=== PATIENT | female | born 1980 | race African-American/Black ===

== ENCOUNTER 2022-12-21 14:52 | Emergency (ER) | payer OTHER, SELFPAY ==
--- NOTE | ~2022-12-21 | CT_ITS ---
EXAMINATION: CT lumbar spine wo con DATE: 12/21/2022 19:35 INDICATION: midline lumbar tenderness . TECHNIQUE: Computed tomography (CT) of the lumbar spine was performed without intravenous contrast. A utomated exposure control and iterative reconstruction technique were employed. The dose-length produ ct was 940.13 mGy-cm. COMPARISON: None. FINDINGS: 5 nonrib-bearing lumbar-type vertebral bodies. Pedicles intact. Normal vertebral body align ment. Vertebral body heights preserved. No lytic or blastic lesion. Mild disc space narrowing at L4-5 and L5-S1. Mild facet arthropathy. No severe central canal or neural foraminal narrowing. IMPRESSION: No acute fracture or traumatic malalignment in the lumbar spine. Reviewed, dictated and finalized at location K.
[2022-12-21 15:28] VITALS: BP 133/83; PULSE 96; RESP 18; TEMP 37.1; O2SAT 100
--- NOTE | 2022-12-21 15:34 | ECG_ITS ---
Measurements Intervals [place] Rate: 75 P: 62 CT: 163 QRS: 51 QRSD: 89 T: 63 QT: 356 QTc: 399 Interpretive Statements SINUS RHYTHM NORMAL ECG NO PREVIOUS ECG AVAILABLE FOR COMPARISON Electronically Signed On 12-22-2022 13:29:56 CDT by Milton Sanchez M.D.
--- NOTE | 2022-12-21 17:24 | ED.GENADULT ---
HPI - General Adult General Chief complaint: Back Pain/Injury Stated complaint: back pain/lightheaded Time Seen by Provider: 12/21/22 17:10 Source: patient Mode of arrival: ambulatory Limitations: no limitations History of Present Illness HPI narrative: This is a 42-year-old female who presents to the ED with chief complaint of back pain x3 days. Reports the pain is all across the low back and radiates somewhat into the upper buttocks bilaterally. Described as sharp pain. Denies any history of back problems. Denies fevers, chills, nausea, vomiting, long-term steroid use. Denies any trauma or injury. Denies numbness or weakness in the extremities. 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 Reports additional complaints of intermittent vertigo that has been treated recently with her PCP. She does not feel this is related to the back pain today, but did have an episode earlier. Denies chest pain, shortness of breath, leg swelling, palpitations, abdominal pain, urinary problems. Denies bowel or bladder dysfunction. She has additional complaints of sore throat and possible canker sore on her tongue. Related Data Allergies Allergy/AdvReac Type Severity Reaction Status Date / Time No Known Allergies Allergy Verified 12/21/22 17:37 Review of Systems Review of Systems: All systems as dictated in HPI Exam Narrative: GENERAL: Well-appearing, well-nourished, and in no acute distress. HEAD: Normocephalic, atraumatic. EYES: PERRLA and EOMI. ENT: Nares clear, no rhinorrhea or epistaxis. Mucous membranes moist. Oropharynx without tonsillar hypertrophy exudate or other lesions. NECK: Supple. No adenopathy or masses. CHEST: No respiratory distress. Clear to auscultation. No wheezes rales or rhonchi HEART: Regular rate and rhythm. No murmur heard. Normal peripheral pulses. ABDOMEN: No flank tenderness. Soft, nontender, nondistended, normal active bowel sounds. MSK: Tenderness to bilateral SI joints. Mild midline tenderness. No deformity or step-off. Normal range of motion. No edema. SKIN: Warm, dry, no rash. NEURO: Alert and oriented x3. No focal deficits. 5/5 strength and sensation in the upper and lower extremities. PSYCH: Normal mood and affect. Course Vital Signs Vital signs: Vital Signs Temperature 98.7 F 12/21/22 15:28 Pulse Rate 96 12/21/22 15:28 Respiratory Rate 18 12/21/22 15:28 Blood Pressure 133/83 12/21/22 15:28 Pulse Oximetry 100 12/21/22 15:28 Oxygen Delivery Room Air 12/21/22 15:28 Temperature 98.7 F 12/21/22 15:28 Pulse Rate 89 12/21/22 21:15 Respiratory Rate 14 12/21/22 21:15 Blood Pressure 150/82 H 12/21/22 21:15 Pulse Oximetry 98 12/21/22 21:15 Oxygen Delivery Room Air 12/21/22 15:28 Medical Decision Making MDM Narrative Medical decision making narrative: This is a 42-year-old female who presents to the ED with chief complaint of lower back pain. Additional complaints of vertigo but this has been intermittent for the past months. Does not seem to be related today. Vitals are normal. Exam shows SI joint tenderness bilaterally. There is no flank tenderness. CT lumbar is largely unremarkable. Mild degenerative disc disease noted. UA shows evidence of infection with 1+ leuks, 21-50 white cells and 4+ bacteria. Again she has no flank tenderness, afebrile so she may have a bit of pyelonephritis but is mild at this time. Viral swabs negative. Symptoms are controlled here in the ED. Presentation consistent with UTI. She was given prescription for Bactrim. Pt will be discharged in stable condition. Return precautions given and supportive measures discussed. Pt is understanding and agreeable with plan for discharge and follow-up with PCP. Vital Signs Vital Signs: Vital Signs Temperature 98.7 F 12/21/22 15:28 Pulse Rate 96 12/21/22 15:28 Respiratory Rate 18 12/21/22 15:28 Blood Pressure 133/83 10/
[2022-12-21] MEDS: KETOROLAC 30 MG/ML VIAL (*BKC) IM (17:38)
[2022-12-21] MEDS: ORPHENADRINE CITRATE 100 MG TABLET.ER PO (17:38)
[2022-12-21 18:04] LABS: Appearance Urine Turbid (Clear); Bacteria Urine 4+ /hpf; Bilirubin Urine Negative (Negative); Blood Urine Negative (Negative); Color Urine Yellow (Yellow); Glucose Urine UA Negative (Negative); Ketones Urine Negative (Negative); Leukocyte Esterase Ur 1+ LEU/UL (Negative); Nitrate Urine Negative (Negative); Non Pathogenic Casts 0-2; Protein Urine Negative (Negative); RBC Urine 0-2 /hpf (0-2); Specific Grav Ur 1.024 (1.001-1.035); Squamous Epithelial Cell Urine Many /hpf (Few); Urobilinogen Urine 0.2 mg/dL (<2.0); WBC Urine 21-50 /hpf; pH Urine 5.5 (5.0-9.0)
[2022-12-21 18:09] LABS: Add Urine Microscopic? YES
[2022-12-21 18:25] LABS: Strep Group A RT-PCR NOT DETECTED (Negative)
[2022-12-21 18:35] LABS: Influenza A QL RT-PCR Negative (Negative); Influenza B QL RT-PCR Negative (Negative); RSV RNA, RT-PCR Negative (Negative); SARS-CoV-2 RNA PCR Negative (Negative)
[2022-12-21 21:15] VITALS: BP 150/82; PULSE 89; RESP 14; O2SAT 98
== END 2022-12-21 21:16 | disposition home or self-care (01) ==
PROVIDERS: Emergency Provider Physician Assistant; PCP Internal Medicine
DX: N39.0 Urinary tract infection, site not specified (principal); Z20.822 Contact with and (suspected) exposure to COVID-19
CPT/HCPCS: 72131; 81001; 81025; 87086; 87637; 87651; 93005; 96372; 99284; A9270; J1885

== ENCOUNTER 2024-04-30 13:04 | Emergency (ER) | payer OTHER, SELFPAY ==
[2024-04-30 13:08] VITALS: BP 131/82; PULSE 82; RESP 16; TEMP 36.4; O2SAT 100
--- OUTSIDE RECORDS SUMMARY | 2024-04-30 13:25 | XMS_ITS | Clinical Summary ---
Author Organization [facility] Address [address] [place] [address] Phone Care Team Providers Care Sr. Social Media & Mobile Manager Name Role Phone Unavailable Primary Care Provider Unavailabl e Allergies No known active allergies Medications PNV #[id number]-FA #6-dha (PRENATE DHA) 28 mg iron-1 mg -300 mg CapsuleIndicati ons:Positive urine test Take 1 Tablet by mouth daily. 30 Capsule 12 08/07/2015 Active Cholecalciferol , Vitamin D3, 2,000 unit Capsule Take by mouth. Active traMADol (ULTRAM) 50 mg tabletIndicatio ns:Dysmenorrhea Take 1 Tablet (50 mg) by mouth every 6 hours as needed for Pain. 15 Tablet 08/29/2018 Active polyethylene glycol 3350 (MIRALAX) 17 gram/dose Powder Take 1 SCOOP (17 Grams) by mouth daily Dissolve in 8 ounces of fluid and drink entire liquid. 527 Gram 08/29/2018 Active Active Problems Problem Noted Date Diagnosed Date Pap smear of cervix with ASCUS, cannot exclude H GSIL 09/11/2015 luteal phase defect 08/09/2015 Retroversion, uterus 08/07/2015 Resolved Problems Problem Noted Date Diagnosed Date Resolved Date Missed 08/25/2015 08/25/2015 Rh negative status during 08/25/2015 08/25/2015 Encounters Date Type Department Care Team Description 04/28/2024 External Device Data [facility] Provider, Abstract 04/14/2024 External Device Data [facility] Provider, Abstract 03/18/2024 External Device Data [facility] Provider, Abstract 03/09/2024 External Device Data [facility] Provider, Abstract from Last 3 Months Immunizations Immunization Administration Dates Next Due Rho (D) IMMUNE GLOBULIN 1,500 UNIT(300 MCG) INJErika CTION 08/25/2015 Family History Medical History Relation Name Comments Hypertension Mother Diabetes Sister Relation Name Status Comments Mother Sister Social History Tobacco Use Types Packs/Day Years Used Date Smoking Tobacco: Never Smokeless Tobacco: Never Alcohol Use Standard Drinks/Week Comments Yes 0 (1 standard drink = 0.6 oz pur e alcohol) Once a year Comments No Sex and Gender Information Value Date Recorded Sex Assigned at Not on file Legal Sex Female 11:06 AM CDT Gender Identity Not on file Sexual Orientation Not on file Last Filed Vital Signs Vital Sign Reading Time Taken Comments Blood Pressure 119/83 08/29/2018 6:55 AM CDT Pulse 83 08/29/2018 5:00 AM CDT Temperature 36.7 C (98.1 F) 08/29/2018 6:55 AM CDT Respiratory Rate 16 08/29/2018 6:55 AM CDT Oxygen Saturation 100% 08/29/2018 6:55 AM CDT Inhaled Oxygen Concentration - - Weight 90.3 kg (199 lb) 08/29/2018 4:35 AM CDT Height 167.6 cm (5' 6 ) 08/29/2018 4:35 AM CDT Body Mass Index 32.12 08/29/2018 4:35 AM CDT Plan of Treatment Health Maintenance Due Date Last Done Comments Pre-Diabetes and Diabetes Screening 1980 HEPATITIS B VACCINES (1 of 3 - 19+ 3-dose series) 12/22/1999 CERVICAL CANCER SCREENING 08/06/2018 08/07/2015 INFLUENZA VACCINE (#1) 2023 04/17/2020, 2019 BREAST CANCER SCREENING 06/18/2024 06/19/2023 DTAP/TDAP/TD VACCINES (5 - Td or Tdap) 11/27/2030 11/27/2020, 05/15/2020, 04/17/2020, Additional history exists HPV VACCINES Aged Out No longer eligi ble based on patient's age to complete this topic Procedures Procedure Name Priority Date/Time Associated Diagnosis Comments MAMMO 3D BEVERLY SCREEN BILAT W OR WO CAD Routine 06/19/2023 9:18 AM CDT Breast cancer screening by mammogram CERV/VAG CYTO SCREEN PAP W/HPV Routine 08/07/2015 4:21 PM CDT Well woman exam with routine gynecological exam Positive urine test Screening for STD (sexually transmitted disease) , incidental from Last 3 Months or Most Recently Relevant to Health Maintenance Results * MAMMO 3D BEVERLY SCREEN BILAT W OR WO CAD (06/19/2023 9:18 AM CDT) Anatomical Region Laterality Modality Breast Bilateral Mammography 06/19/2023 9:19 AM CDT Narrative 06/19/2023 9:26 AM CDT EXAM: MAMMO 3D BEVERLY SCREEN BILAT W OR WO CAD DATE: 06/19/2023 HISTORY: Breast cancer screening by mammogram COMPARISON: None as this is a baseline exam. DENSITY: Heterogeneously dense which could obscure small masses. FINDINGS: Bilateral screening mammograms with tomosynthesis were performed. Computer assisted detection was utilized. Little significant change is noted. The parenchymal pattern is essentially unchanged. No new dominant mass, architectural distortion, nipple retraction, skin thickening, or suspicious calcifications are seen. ASSESSMENT: BIRADS Category 1: Negative mammogram. Digital technology was employed plus computer-aided detection software was utilized in interpretation of these images. Melvin Tineo MD MAMMO ORDERABLES Final Result * (ABNORMAL) CERV/VAG CYTOPATH, THIN PREP MANAGER DIABETES AND HPV (CP) (08/07/2015 4:21 PM CDT) CLINICAL INFORMATION [facility] Comment: Routine exam WWE LAST MENSTRUAL PERIOD [facility] Comment:[id number] PREV PAP: [facility] Comment:INFORMATION NOT PROV IDED PREV BX: [facility] Comment:INFORMATION NOT PROV IDED SOURCE [facility] Comment:Endocervix ADEQUACY: [facility] Comment: Satisfactory for evaluation. Endocervical/transformation zone component present. GENERAL CATEGORIZATION: (A) [facility] Comment:EPITHELIAL CELL ABNO RMALITY INTERPRETATION (A) [facility] Comment: Atypical Squamous Cells, cannot exclude High Grade Squamous Intraepithelial Lesion (ASC-H) COMMENT [facility] Comment: This Pap test has been evaluated with computer assisted technology. 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 (electronic signature) Test Performed at: [address] [address] OSCAR GILMORE MD HPV E6/E7 Not Detected Not Detected [facility] Comment: This test was performed using the APTIMA HPV Assay ([employer] This assay detects E6/E7 viral messenger RNA (mRNA) from 14 high-risk HPV types (16,18,31,33,35,39,45,51,52,56,58,59,66,68). Specimen from genital system (specimen) SWAB OF ENDOCERVIX / Unknown 08/07/2015 4:21 PM CDT us Mika Astorga MD PATHOLOGY/CYTOLOGY ORDERABLE S Final Result [facility] [address] [place] [address] from Last 3 Months or Most Recently Relevant to Health Maintenance Insurance [employer] OPEN ACCESS HMO [employer] CHOICE FUND OA PLUS Advance Directives For more information, please contact: [phone] * Full Code (Latest Code Status on File) Date Activated Date Inactivated Comments 08/25/2015 5:23 AM 08/25/2015 10:21 AM
--- OUTSIDE RECORDS SUMMARY | 2024-04-30 13:25 | XMS_ITS | Patient Health Record ---
Author Organization [facility] Address [address] [place] [address] Care Team Providers Care Road Passenger Firer Name Role Phone Hallie Byrne Primary Care Provider Mari Byrne Unavailable Unavailable Allergies No Known Allergies Reason For Referral No Information Medications Medication SIG (Take, Route, Frequency, Duration) Notes Start Date End Date Status FLUoxetine HCl 10 MG 1 capsule Orally On ce a day for 30 days Active hydrOXYzine Pamoate 25 MG 1 capsule ever y 6 hours as needed for anxiety Orally Every 6 hours for 30 days Active traZODone HCl 50 MG 1 tablet at bedtime Orally Once a day Active Social History Sex Assigned At : Social History Observation Description Sex Assigned At Female Problems Problem Type SNOMED Code ICD Code Onset Dates Problem Status W/U Status Risk Notes Problem Major depression (269192311) Major depression (F32.9) Active confirmed Problem Generalized anxiety disorder (25250960) MARIANA (generalized anxiety disorder) (F41.1) Active confirmed Vital Signs Heart Rate 84 /min 01/27/2024 Temperature 98.1 degrees Fahrenheit 01/27/2024 Respiratory Rate 16 /min 01/27/2024 Oximetry 99 % 01/27/2024 Blood pressure diastolic 80 mm Hg 01/27/2024 Height 66 in 01/27/2024 Blood pressure systolic 128 mm Hg 01/27/2024 Weight 237 lbs 01/27/2024 BMI 38.25 kg/m2 01/27/2024 Encounters Encounter Location Date Provider Diagnosis [address] [place] [address] 01/27/2024 Arif Habib Major depression F32.9 and MARIANA (generalized anxiety disorder) F41.1 Assessments Encounter Date Diagnosis (ICD Code) Assessment Notes Treatment Notes Treatment Clinical Notes Section Notes 01/27/2024 Major depression (ICD-10 - F32.9) risk & benefits discussed. Lower Prozac 10 mg daily, Vistaril 25 mg PRN for anxiety, Continue Trazodone 50 mg HS PRN . Side effects discussed. Supportive treatment provided. Refer to counseling. 01/27/2024 MARIANA (generalized anxiety disorder) (ICD-10 - F41.1) Plan Of Treatment No Information Insurance Providers Payer Name Payer Address Payer Phone Subscriber Number Group Number Insured Name Patient Relationship to Insured Coverage Start Date Coverage End Date [employer] [address] [place] [address] [id number] Ramon Kulkarni Self - patient is the insured 4 Medical (General) History Surgical History Surgery Date(Month/Year) Uterine Fibroid Removal 2000 2009 D&C 2014, 2015, 2020 2009 Fertility treatments from [phone]
--- OUTSIDE RECORDS SUMMARY | 2024-04-30 13:25 | XMS_ITS | Encounter Summary ---
Author Organization [facility] Address [address] [place] [address] Care Team Providers Care Info Analyst Name Role Phone Unavailable Primary Care Provider Unavailabl e Encounter Details Date Type Department Care Team (Late st Contact Info) Description 04/28/2024 External Device Data [facility] Provider, Abstract NO ADDRESS ON FILE Social History Tobacco Use Types Packs/Day Years [...] on file Sexual Orientation Not on file documented as of this encounter Plan of Treatment Not on file documented as of this encounter Visit Diagnoses Not on filedocumented in this encounter
--- OUTSIDE RECORDS SUMMARY | 2024-04-30 13:25 | XMS_ITS | Encounter Summary ---
Author Organization [facility] Address [address] [place] [address] Care Team Providers Care Lens Gauger Name Role Phone Unavailable Primary Care Provider Unavailabl e Encounter Details Date Type Department Care Team (Late st Contact Info) Description 05/06/2023 Lab Requisition [facility] [employer] [address] [employer] [address] [facility], External Provider [address] [facility] [place] [address] Social History Tobacco Use Types Packs/Day Years [...] on file documented as of this encounter Procedures Procedure Name Priority Date/Time Associated Diagnosis Comments D-DIMER Stat 05/06/2023 12:16 PM CDT documented in this encounter Results * D-DIMER (05/06/2023 12:16 PM CDT) D-DIMER QUANT 0.39 <0.50 ug/mL FEU 05/06/2023 3:52 PM CDT [facility] [employer] [facility] Blood 05/06/2023 12:1 6 PM CDT 05/06/2023 3:10 PM CDT Narrative [facility] - 05/06/2023 3:52 PM CDT D-Dimer assay cutoff value for exclusion of DVT and/or PE is <0.50 ug/mL FEU. us External Provider [facility] HEMATOLOGY ORDERABLES Fi nal Result [facility] CLOK# [id number] [address] [place] [address] documented in this encounter Visit Diagnoses Not on filedocumented in this encounter
--- OUTSIDE RECORDS SUMMARY | 2024-04-30 13:26 | XMS_ITS | Data Portability ---
Author Organization [facility], [employer] Address [address] [place] [address] Care Team Providers Care Cmm Inspector Name Role Phone LUPILLO JOLLY Crm System Administrator Assessment Encounter Date Assessment Date Assessment LastModified by Organization Details LastModified Time 01/07/2023 01/07/2023 Patient presente d for follow up. Studies ordered as below. Discussed plan with patient/caregiver , who expressed understanding. Follow up as noted below. Not available 01/07/2023 17:47:39 05/05/2023 05/05/2023 Patient presente d for follow up. Studies ordered as below. Discussed plan with patient/caregiver , who expressed understanding. Follow up as noted below. diana Not available 05/05/2023 15:30:36 07/14/2023 07/14/2023 Recommends healthy nutrition, including a diet rich in fruits and vegetables, minimizing simple carbohydrates, salt, and saturated fats. Encouraged regular cardiovascular exercise such as walking at least 30 minutes daily, 5 times per week. Not available 07/14/2023 10:53:24 03/16/2024 03/16/2024 Recommends healthy nutrition, including a diet rich in fruits and vegetables, minimizing simple carbohydrates, salt, and saturated fats. Encouraged regular cardiovascular exercise such as walking at least 30 minutes daily, 5 times per week. Not available 03/16/2024 16:09:27 Plan of Treatment Reminders Order Date Submit Date Provider Last Modified By Organization Details Last Modified Time Details Appointments ANNUAL PHYSICA L 2024 01:30P M Melvin Tineo MD Not available Not available Not available Lab CBC w/ auto diff 2023 024 [facility], [address], [address], [place], [address], 07/22/2023 08:46:31 iron panel, serum or plasma 2023 024 [facility], [address], [address], [place], [address], 07/14/2023 11:01:56 CBC w/ auto diff 2023 024 [facility], [address], [address], [place], [address], 05/12/2023 07:34:09 CMP, serum or plasma 2023 024 [facility], [address], [address], [place], [address], 05/12/2023 07:34:08 urinaly sis complet e, reflex culture [address] [facility], [address], [address], [place], [address], 05/12/2023 08:20:01 amylase + lipase, serum 2023 024 [facility], [address], [address], [place], [address], 05/12/2023 07:34:09 pregnan cy test, urine 2023 024 [facility], [facility], [address], [place], [address], 05/05/2023 16:59:59 D-dimer , quant, plasma 2023 024 [facility], [address], [address], [place], [address], 05/22/2023 13:19:25 urinaly sis complet e, reflex culture [address] [facility], [address], [address], [place], [address], 01/07/2023 17:52:56 vitamin B12 + folate, serum or blood 2022 023 [facility], [address], [place], [address], 01/14/2023 08:09:41 TSH + free T4, serum 2022 023 [facility], [address], [address], [place], [address], 01/14/2023 08:09:42 T3, free, serum or plasma 2022 023 [facility], [address], [address], [place], [address], 01/14/2023 08:09:42 CMP, serum or plasma 2022 023 [facility], [address], [address], [place], [address], 11/06/2022 08:27:18 magnesi um, serum or plasma [address] [facility] [address] [facility], [address], [address], [place], [address], 11/06/2022 08:27:19 lipid panel, serum [address] [facility], [address], [address], [place], [address], 11/06/2022 08:27:19 HIV 1+2 Ab + HIV1 p24 Ag, quantit ative immunoa ssay, serum 2022 023 [employer] [facility], [address], [address], [place], [address], 01/04/2023 08:52:31 CBC w/ auto diff 2022 023 [facility], [address], [address], [place], [address], 11/06/2022 08:27:19 iron + TIBC + ferriti n, serum 2022 023 [facility], [address], [address], [place], [address], 11/06/2022 08:27:19 Referral gynecol ogist referra l 2024 025 diana Menjivar MD, [address] [facility], [facility] [address], [place], [address], 04/13/2024 08:12:33 gynecol ogist referra l 2023 024 diana Menjivar MD, [address] [facility], [facility] [address], [place], [address], 08/11/2023 21:20:50 gastroe nterolo gist referra l 2023 024 MARCELA Whitaker MD, [address] [facility], [address], [place], [address], 11/09/2023 21:21:[address] referra l 2022 023 [facility] [address] [facility], [address], [place], [address], 01/02/2024 09:08:01 gynecol ogist referra l 2022 023 shannon Escobarti MD, [address], [address], [place], [address], 02/04/2023 08:29:52 Procedures None recorde d. Surgeries None recorde d. Imaging electro cardiog barb 2024 025 [facility], [facility], [address], [place], [address], 03/16/2024 17:00:35 CT, abdomen + pelvis, w/wo contras t 2023 024 [facility] [facility]), [address], [address], [place], [address], 05/12/2023 08:20:05 Medication Orders omepraz ole 40 mg capsule ,delaye d release 2023 024 [id number], [address], [place], [place], [id number], 05/05/2023 16:10:44 meclizi ne 25 mg tablet 2022 023 [facility][id number], [address], [place], [place], [id number], 03/16/2024 16:15:00 Patient TargetsNo targets recorded. Patient Instructions Encounter Date Encounter Id Patient Instructions Last Modified By Organization Details Last Modified Time 10/30/2022 [id number] spirometry testing* MARCELA Not available 01/07/2023 18:48:43 07/14/2023 [id number] advised to lose weight Not available 07/14/2023 11:00:48 03/16/2024 [id number] spirometry testing* MARCELA Not available 03/16/2024 16:59:49 advised to lose weight Not available 03/16/2024 16:19:33 Reason for Referral Digital Marketing Assistant Referral fo r Vertigo Referring Physician: Melvin Tineo, Internal Medicine, Encounter Date: 01/07/2023 Crm System Administrator Referral for Ir on deficiency anemia Referring Physician: Melvin Tineo Internal Medicine, Encounter Date: 01/07/2023 Fish Roe Technician Referral for Left upper quadrant pain Referring Physician: Melvin Tineo Internal Medicine, Encounter Date: 05/05/2023 Crm System Administrator Referral for Gy necologic examination Referring Physician: Melvin Tineo Internal Medicine, Encounter Date: 07/14/2023 Crm System Administrator Referral for Gy necologic examination Referring Physician: Melvin Tineo Internal Medicine, Encounter Date: 03/16/2024 Results Created Date Observation Date Name Description Value Unit Range Abnormal Flag Note LastModifiedBy Organization Detail LastModifiedTime 11/01/1910/31/2022 isaac metry testi ng* Spirometry Not Available [facility], [facility] [address] [facility] [address], [place], [address], 10/30/2022 12:13:19 01/04/2001/04/2023 IRON, TIBC AND CHALO TIN PANEL iron, total 22 mcg/d L 40-190 low Not Available [facility] [address], [address], 01/04/2023 08:52:28 01/04/20 23 01/04/2023 IRON, TIBC AND CHALO TIN PANEL iron binding capacity 413 mcg/d L_(ca lc) 250-45 0 normal Not Available [facility] [address] [place], [address], 01/04/2023 08:52:28 01/04/20 23 01/04/2023 IRON, TIBC AND CHALO TIN PANEL % saturation 5 %_(ca lc) 16-45 low Not Available [facility] [address], [address], 01/04/2023 08:52:28 01/04/20 23 01/04/2023 IRON, TIBC AND CHALO TIN PANEL ferritin 7 NG/mL 16-232 low Not Available [facility] [place] [address] [place], [address], 01/04/2023 08:52:28 01/04/20 23 01/04/2023 LIPID PANEL , STAND FLORENCIA cholesterol, total 131 mg/dL <200 normal Not Available [facility] [address] [place] [address] [place], [address], 01/04/2023 08:52:29 01/04/20 23 01/04/2023 LIPID PANEL , STAND FLORENCIA HDL cholesterol 54 mg/dL > or = 50 normal Not Available [facility] [place] [address] [place], [address], 01/04/2023 08:52:29 01/04/20 23 01/04/2023 LIPID PANEL , STAND FLORENCIA triglyceride s 59 mg/dL <150 normal Not Available [facility] [address] [address] [place], [address], 01/04/2023 08:52:29 01/04/20 23 01/04/2023 LIPID PANEL , STAND FLORENCIA LDL-choleste rol 63 mg/dL _(heaven c) normal Refer ence range : <100 Tenzin able range <100 mg/dL for prima ry preve ntion ; <70 mg/dL for patie nts with CHD or diabe tic patie nts with > or = 2 CHD risk facto rs. LDL-C is now calcu lated using the Harleen n-Hop kins angelu mica n, which is a valid ated novel metho d provi hema bañuelos r accur acy than the Fried imelda equat ion in the estim ation of LDL-C . Harleen petersen SS et al. JUAREZ. 2013; 310(1 9): 2061- 2068 (http ://ed ucati on.Qu Sherrill chi tics. com/f aq/FA Q164) Not Available [facility] [place] [address] [place], [address], 01/04/2023 08:52:29 01/04/20 23 01/04/2023 LIPID PANEL , STAND FLORENCIA chol/HDLC ratio 2.4 (calc ) <5.0 normal Not Available [facility] [address] [place], [address], 01/04/2023 08:52:29 01/04/20 23 01/04/2023 LIPID PANEL , STAND FLORENCIA non HDL cholesterol 77 mg/dL _(heaven c) <130 normal For patie nts with diabe nany plus 1 major ASCVD risk facto r, treat ing to a non-H DL-C goal of <100 mg/dL (LDL- C of <70 mg/dL ) is consi dered a thera peuti c optio n. Not Available [facility] [address], [place], [address], 01/04/2023 08:52:29 01/04/20 23 01/04/2023 HIV 1/2 ANTIG EN/AN TIBOD Y,FOU RTH GENER ATION W/RFL HIV Ag/Ab, 4TH gen NON-RE ACTIVE non-re active normal HIV-1 antig en and HIV-1 /HIV- 2 antib odies were not detec pooja. There is no labor atory evide nce of HIV infec tion. PLEAS E NOTE: This infor matio n has been discl osed to you from recor ds whose confi denti ality may be prote cted by state law. If your state requi res such prote ction , then the state law prohi bits you from esau rivera furth er discl osure of the infor matio n witho ut the speci fic writt en conse nt of the perso n to whom it perta ins, or as other fox permi tted by law. A gener al autho rizat ion for the relea se of medic al or other infor matio n is NOT suffi cient for this purpo se. For addit ional infor matio n pleas e refer to http: //[facility] catrachel n.que stdia gnost ics.c om/fa q/FAQ 106 (This link is being provi ded for infor matio nal/ educa veena l purpo ses only. ) The perfo rmanc e of this assay has not been clini trudy valid ated in patie nts less than 2 years old. Not Available [address], [address], 01/04/2023 08:52:30 01/04/20 23 01/04/2023 MAGNE SIUM magnesium 2.0 mg/dL 1.5-2. 5 normal Not Available [address], [address], 01/04/2023 08:52:31 01/04/20 23 01/04/2023 COMPR EHENS MARISA METAB OLIC PANEL glucose 81 mg/dL 65-99 normal Fasti ng refer ence inter binta Not Available [address], [address], 01/04/2023 08:52:32 01/04/20 23 01/04/2023 COMPR EHENS MARISA METAB OLIC PANEL urea nitrogen (BUN) 13 mg/dL 7-25 normal Not Available [address], [address], 01/04/2023 08:52:32 01/04/20 23 01/04/2023 COMPR EHENS MARISA METAB OLIC PANEL creatinine 0.74 mg/dL 0.50-0 .99 normal Not Available [address], [address], 01/04/2023 08:52:32 01/04/20 23 01/04/2023 COMPR EHENS MARISA METAB OLIC PANEL eGFR 104 mL/mi n/1.7 3m2 > or = 60 normal Not Available [address], [address], 01/04/2023 08:52:32 01/04/20 23 01/04/2023 COMPR EHENS MARISA METAB OLIC PANEL BUN/creatini ne ratio SEE NOTE: (calc ) 6-22 Not Repor pooja: BUN and Creat inine are withi n refer ence range . Not Available [address], [address], 01/04/2023 08:52:32 01/04/20 23 01/04/2023 COMPR EHENS MARISA METAB OLIC PANEL sodium 132 mmol/ L 135-14 6 low Not Available [address], [address], 01/04/2023 08:52:32 01/04/20 23 01/04/2023 COMPR EHENS MARISA METAB OLIC PANEL potassium 4.4 mmol/ L 3.5-5. 3 normal Not Available [address], [address], 01/04/2023 08:52:32 01/04/20 23 01/04/2023 COMPR EHENS MARISA METAB OLIC PANEL chloride 101 mmol/ L 98-110 normal Not Available [address], [address], 01/04/2023 08:52:32 01/04/20 23 01/04/2023 COMPR EHENS MARISA METAB OLIC PANEL carbon dioxide 25 mmol/ L 20-32 normal Not Available [address], [address], 01/04/2023 08:52:32 01/04/20 23 01/04/2023 COMPR EHENS MARISA METAB OLIC PANEL calcium 8.9 mg/dL 8.6-10 .2 normal Not Available [address], [address], 01/04/2023 08:52:32 01/04/20 23 01/04/2023 COMPR EHENS MARISA METAB OLIC PANEL protein, total 7.7 g/dL 6.1-8. 1 normal Not Available [facility] [address], [address], 01/04/2023 08:52:32 01/04/20 23 01/04/2023 COMPR EHENS MARISA METAB OLIC PANEL albumin 3.9 g/dL 3.6-5. 1 normal Not Available [address], [address], 01/04/2023 08:52:32 01/04/20 23 01/04/2023 COMPR EHENS MARISA METAB OLIC PANEL globulin 3.8 g/dL_ (calc ) 1.9-3. 7 high Not Available [address], [address], 01/04/2023 08:52:32 01/04/20 23 01/04/2023 COMPR EHENS MARISA METAB OLIC PANEL albumin/glob ulin ratio 1.0 (calc ) 1.0-2. 5 normal Not Available [address], [address], 01/04/2023 08:52:32 01/04/20 23 01/04/2023 COMPR EHENS MARISA METAB OLIC PANEL bilirubin, total 0.2 mg/dL 0.2-1. 2 normal Not Available [address], [address], 01/04/2023 08:52:32 01/04/20 23 01/04/2023 COMPR EHENS MARISA METAB OLIC PANEL alkaline phosphatase 69 U/L 31-125 normal Not Available [facility] [place] [address] [place], [address], 01/04/2023 08:52:32 01/04/20 23 01/04/2023 COMPR EHENS MARISA METAB OLIC PANEL AST 32 U/L 10-30 high Not Available [address], [address], 01/04/2023 08:52:32 01/04/20 23 01/04/2023 COMPR EHENS MARISA METAB OLIC PANEL ALT 34 U/L 6-29 high Not Available [address], [address], 01/04/2023 08:52:32 01/04/20 23 01/04/2023 CBC (INCL UDES DIFF/ PLT) white blood cell count 4.1 thous and/u L 3.8-10 .8 normal Not Available [address], [address], 01/04/2023 08:52:32 01/04/20 23 01/04/2023 CBC (INCL UDES DIFF/ PLT) red blood cell count 3.92 karla on/uL 3.80-5 .10 normal Not Available [address], [address], 01/04/2023 08:52:32 01/04/20 23 01/04/2023 CBC (INCL UDES DIFF/ PLT) hemoglobin 9.6 g/dL 11.7-1 5.5 low Not Available [address], [address], 01/04/2023 08:52:32 01/04/20 23 01/04/2023 CBC (INCL UDES DIFF/ PLT) hematocrit 30.8 % 35.0-4 5.0 low Not Available [address], [address], 01/04/2023 08:52:32 01/04/20 23 01/04/2023 CBC (INCL UDES DIFF/ PLT) MCV 78.6 fL 80.0-1 00.0 low Not Available [facility] [address], [address], 01/04/2023 08:52:32 01/04/20 23 01/04/2023 CBC (INCL UDES DIFF/ PLT) MCH 24.5 pg 27.0-3 3.0 low Not Available [address], [address], 01/04/2023 08:52:32 01/04/2001/04/2023 CBC (INCL UDES DIFF/ PLT) MCHC 31.2 g/dL 32.0-3 6.0 low Not Available [facility] [address], [address], 01/04/2023 08:52:32 01/04/20 23 01/04/2023 CBC (INCL UDES DIFF/ PLT) RDW 15.7 % 11.0-1 5.0 high Not Available [facility] [address], [address], 01/04/2023 08:52:32 01/04/20 23 01/04/2023 CBC (INCL UDES DIFF/ PLT) platelet count 319 thous and/u L 140-40 0 normal Not Available [address], [address], 01/04/2023 08:52:32 01/04/20 23 01/04/2023 CBC (INCL UDES DIFF/ PLT) MPV 11.5 fL 7.5-12 .5 normal Not Available [address], [address], 01/04/2023 08:52:32 01/04/20 23 01/04/2023 CBC (INCL UDES DIFF/ PLT) absolute neutrophils 1230 cells /uL 1500-7 800 low Not Available [facility] [address], [address], 01/04/2023 08:52:32 01/04/20 23 01/04/2023 CBC (INCL UDES DIFF/ PLT) absolute lymphocytes 2460 cells /uL 850-39 00 normal Not Available [facility] [address], [address], 01/04/2023 08:52:32 01/04/20 23 01/04/2023 CBC (INCL UDES DIFF/ PLT) absolute monocytes 287 cells /uL 200-95 0 normal Not Available [address], [address], 01/04/2023 08:52:32 01/04/20 23 01/04/2023 CBC (INCL UDES DIFF/ PLT) absolute eosinophils 123 cells /uL 15-500 normal Not Available [facility] [address], [address], 01/04/2023 08:52:32 01/04/20 23 01/04/2023 CBC (INCL UDES DIFF/ PLT) absolute basophils 0 cells /uL 0-200 normal Not Available [address], [address], 01/04/2023 08:52:32 01/04/20 23 01/04/2023 CBC (INCL UDES DIFF/ PLT) neutrophils 30 % normal Not Available [address], [address], 01/04/2023 08:52:32 01/04/20 23 01/04/2023 CBC (INCL UDES DIFF/ PLT) lymphocytes 60 % normal Not Available [address], [address], 01/04/2023 08:52:32 01/04/20 23 01/04/2023 CBC (INCL UDES DIFF/ PLT) monocytes 7 % normal Not Available [facility] [address], [address], 01/04/2023 08:52:32 01/04/20 23 01/04/2023 CBC (INCL UDES DIFF/ PLT) eosinophils 3 % normal Not Available [facility] [address], [address], 01/04/2023 08:52:32 01/04/20 23 01/04/2023 CBC (INCL UDES DIFF/ PLT) basophils 0 % normal Not Available [address], [address], 01/04/2023 08:52:32 01/04/20 23 01/04/2023 CBC (INCL UDES DIFF/ PLT) comment(s) The smear has been manua lldesean revie wed and the manua l diffe renti al has been repor pooja. Micro cytos is 1 + Revie w of the perip heral smear revea ls adequ ate numbe rs of plate lets. Not Available [address], [address], 01/04/2023 08:52:32 05/06/19 24 05/09/2023 IRON, TIBC AND CHALO TIN PANEL iron, total 126 mcg/d L 40-190 normal Not Available [address], [address], 05/09/2023 05:33:13 05/06/19 24 05/09/2023 IRON, TIBC AND CHALO TIN PANEL iron binding capacity 334 mcg/d L_(ca lc) 250-45 0 normal Not Available [address], [address], 05/09/2023 05:33:13 05/06/19 24 05/09/2023 IRON, TIBC AND CHALO TIN PANEL % saturation 38 %_(ca lc) 16-45 normal Not Available [address], [address], 05/09/2023 05:33:13 05/06/19 24 05/09/2023 IRON, TIBC AND CHALO TIN PANEL ferritin 14 NG/mL 16-232 low Not Available [address], [address], 05/09/2023 05:33:13 05/06/19 24 05/09/2023 HEPAT ITIS PANEL , ACUTE W/REF [place] TO CONFI RMATI ON hepatitis A IgM NON-RE ACTIVE non-re active normal For addit ional jorge hernandez e refer to http: //[facility]achel petersen.que stdia gnost ics.c om/fa q/FAQ 202 (This link is being provi ded for infor matio nal/ educa veena l purpo ses only. ) Not Available [address] [place] [address] [place], [address], 05/09/2023 05:33:14 05/06/19 24 05/09/2023 HEPAT ITIS PANEL , ACUTE W/REF [place] TO CONFI RMATI ON hepatitis B surface antigen NON-RE ACTIVE non-re active normal For addit ional jorge hernandez e refer to http: //[facility] zahida petersen.que stdia gnost ics.c om/fa q/FAQ 202 (This link is being provi ded for infor matrachel nal/ educa veena l purpo ses only. ) Not Available [facility] [address] [place], [address], 05/09/2023 05:33:14 05/06/19 24 05/09/2023 HEPAT ITIS PANEL , ACUTE W/REF [place] TO CONFI RMATI ON hepatitis B core antibody (IgM) NON-RE ACTIVE non-re active normal For addit ional jorge hernandez e refer to http: //[facility] zahida petersen.que stdia gnost ics.c om/fa q/FAQ 202 (This link is being provi ded for infor matio nal/ educa veena l purpo ses only. ) Not Available [facility] [address] [place], [address], 05/09/2023 05:33:14 05/06/19 24 05/09/2023 HEPAT ITIS PANEL , ACUTE W/REF [place] TO CONFI RMATI ON hepatitis C antibody NON-RE ACTIVE non-re active normal HCV antib trang was non-r eacti ve. There is no labor atory evide nce of HCV infec tion. In most cases , no furth er actio n is requi red. Howev er, if recen t HCV expos ure is suspe cted, a test for HCV RNA (test code 88440 ) is justin faye. For addit ional infor lisa patel e refer to http: //[facility] zahida levineque stdia gnost ics.c om/fa q/FAQ 22v1 (This link is being provi ded for infor lisa wheeler/ educa veena l purpo ses only. ) Not Available [address] [place], [address], 05/09/2023 05:33:14 05/06/1905/09/2023 TSH+F REE T4 TSH 1.77 mIU/L normal Refer ence Range > or = 20 Years 0.40- 4.50 Pregn shnaeka Range s First trime ster 0.26- 2.66 Secon d trime ster 0.55- 2.73 Third trime ster 0.43- 2.91 Not Available [address] [place], [address], 05/09/2023 05:33:15 05/06/19 24 05/09/2023 TSH+F REE T4 T4, free 0.9 NG/dL 0.8-1. 8 normal Not Available [facility] [place] [address] [place], [address], 05/09/2023 05:33:15 05/06/19 24 05/09/2023 CERUL OPLAS MIN ceruloplasmi n 31 mg/dL 18-53 normal Not Available [facility] [address], [address], 05/09/2023 05:33:16 05/06/19 24 05/09/2023 MITOC HONDR IAL ANTIB TRANG W/REF L TITER mitochondria l Ab screen NEGATI VE negati ve Not Available [facility] [address] [place], [address], 05/09/2023 05:33:18 05/06/19 24 05/09/2023 ANUJA H MUSCL E AB W/REF L TITER smooth muscle Ab screen NEGATI VE negati ve Not Available [address], [address], 05/09/2023 05:33:18 05/06/19 24 05/09/2023 VITAM IN B12/F OLATE , SERUM PANEL vitamin B12 1756 pg/mL 200-11 00 high Not Available [address], [address], 05/09/2023 05:33:19 05/06/19 24 05/09/2023 VITAM IN B12/F OLATE , SERUM PANEL folate, serum >24.0 NG/mL normal Refer ence Range Low: <3.4 Borde rline : 3.4-5 .4 Jammie l: >5.4 Not Available [address], [address], 05/09/2023 05:33:19 05/06/19 24 05/09/2023 T3, FREE T3, free 3.0 pg/mL 2.3-4. 2 normal Not Available [address], [address], 05/09/2023 05:33:19 05/06/19 24 05/09/2023 HCG, QL, URINE HCG, ql, urine NEGATI VE negati ve normal Not Available [address], [address], 05/09/2023 05:33:20 05/06/19 24 05/22/2023 COMPR EHENS MARISA METAB OLIC PANEL glucose 96 mg/dL 65-99 normal Fasti ng refer ence inter binta Not Available [address], [address], 05/22/2023 13:19:22 05/06/19 24 05/22/2023 COMPR EHENS MARISA METAB OLIC PANEL urea nitrogen (BUN) 10 mg/dL 7-25 normal Not Available [address], [address], 05/22/2023 13:19:22 05/06/19 24 05/22/2023 COMPR EHENS MARISA METAB OLIC PANEL creatinine 0.81 mg/dL 0.50-0 .99 normal Not Available [address], [address], 05/22/2023 13:19:22 05/06/19 24 05/22/2023 COMPR EHENS MARISA METAB OLIC PANEL eGFR 93 mL/mi n/1.7 3m2 > or = 60 normal Not Available [address], [address], 05/22/2023 13:19:22 05/06/19 24 05/22/2023 COMPR EHENS MARISA METAB OLIC PANEL BUN/creatini ne ratio SEE NOTE: (calc ) 6-22 Not Repor pooja: BUN and Creat inine are withi n refer ence range . Not Available [address], [address], 05/22/2023 13:19:22 05/06/19 24 05/22/2023 COMPR EHENS MARISA METAB OLIC PANEL sodium 137 mmol/ L 135-14 6 normal Not Available [address], [address], 05/22/2023 13:19:22 05/06/19 24 05/22/2023 COMPR EHENS MARISA METAB OLIC PANEL potassium 3.8 mmol/ L 3.5-5. 3 normal Not Available [address], [id number], 05/22/2023 13:19:22 05/06/19 24 05/22/2023 COMPR EHENS MARISA METAB OLIC PANEL chloride 107 mmol/ L 98-110 normal Not Available [address], [id number], 05/22/2023 13:19:22 05/06/19 24 05/22/2023 COMPR EHENS MARISA METAB OLIC PANEL carbon dioxide 23 mmol/ L 20-32 normal Not Available [address], [id number], 05/22/2023 13:19:22 05/06/19 24 05/22/2023 COMPR EHENS MARISA METAB OLIC PANEL calcium 9.4 mg/dL 8.6-10 .2 normal Not Available [address], [address], 05/22/2023 13:19:22 05/06/19 24 05/22/2023 COMPR EHENS MARISA METAB OLIC PANEL protein, total 7.4 g/dL 6.1-8. 1 normal Not Available [address], [address], 05/22/2023 13:19:22 05/06/19 24 05/22/2023 COMPR EHENS MARISA METAB OLIC PANEL albumin 4.1 g/dL 3.6-5. 1 normal Not Available [address], [address], 05/22/2023 13:19:22 05/06/19 24 05/22/2023 COMPR EHENS MARISA METAB OLIC PANEL globulin 3.3 g/dL_ (calc ) 1.9-3. 7 normal Not Available [address], [address], 05/22/2023 13:19:22 05/06/19 24 05/22/2023 COMPR EHENS MARISA METAB OLIC PANEL albumin/glob ulin ratio 1.2 (calc ) 1.0-2. 5 normal Not Available [address], [address], 05/22/2023 13:19:22 05/06/19 24 05/22/2023 COMPR EHENS MARISA METAB OLIC PANEL bilirubin, total 0.3 mg/dL 0.2-1. 2 normal Not Available [address], [address], 05/22/2023 13:19:22 05/06/19 24 05/22/2023 COMPR EHENS MARISA METAB OLIC PANEL alkaline phosphatase 54 U/L 31-125 normal Not Available [address], [address], 05/22/2023 13:19:22 05/06/19 24 05/22/2023 COMPR EHENS MARISA METAB OLIC PANEL AST 14 U/L 10-30 normal Not Available [address], [address], 05/22/2023 13:19:22 05/06/19 24 05/22/2023 COMPR EHENS MARISA METAB OLIC PANEL ALT 9 U/L 6-29 normal Not Available [address], [address], 05/22/2023 13:19:22 05/06/19 24 05/22/2023 URINA LYSIS , COMPL ETE W/REF NJ TO CULTU RE color YELLOW yellow normal Not Available [address], [address], 05/22/2023 13:19:22 05/06/19 24 05/22/2023 URINA LYSIS , COMPL ETE W/REF NJ TO CULTU RE appearance CLEAR clear normal Not Available [address], [address], 05/22/2023 13:19:22 05/06/19 24 05/22/2023 URINA LYSIS , COMPL ETE W/REF NJ TO CULTU RE specific gravity 1.001 1.001- 1.035 normal Not Available [address] [address] [place], [address], 05/22/2023 13:19:22 05/06/19 24 05/22/2023 URINA LYSIS , COMPL ETE W/REF NJ TO CULTU RE pH 6.0 5.0-8. 0 normal Not Available [address], [address], 05/22/2023 13:19:22 05/06/19 24 05/22/2023 URINA LYSIS , COMPL ETE W/REF NJ TO CULTU RE glucose NEGATI VE negati ve normal Not Available [address], [address], 05/22/2023 13:19:22 05/06/19 24 05/22/2023 URINA LYSIS , COMPL ETE W/REF NJ TO CULTU RE bilirubin NEGATI VE negati ve normal Not Available [address], [place], [address], 05/22/2023 13:19:22 05/06/19 24 05/22/2023 URINA LYSIS , COMPL ETE W/REF NJ TO CULTU RE ketones NEGATI VE negati ve normal Not Available [address], [address], 05/22/2023 13:19:22 05/06/19 24 05/22/2023 URINA LYSIS , COMPL ETE W/REF NJ TO CULTU RE occult blood NEGATI VE negati ve normal Not Available [address], [address], 05/22/2023 13:19:22 05/06/19 24 05/22/2023 URINA LYSIS , COMPL ETE W/REF NJ TO CULTU RE protein NEGATI VE negati ve normal Not Available [address] [place], [address], 05/22/2023 13:19:22 05/06/19 24 05/22/2023 URINA LYSIS , COMPL ETE W/REF NJ TO CULTU RE nitrite NEGATI VE negati ve normal Not Available [address], [address], 05/22/2023 13:19:22 05/06/19 24 05/22/2023 URINA LYSIS , COMPL ETE W/REF NJ TO CULTU RE leukocyte esterase NEGATI VE negati ve normal Not Available [address], [address], 05/22/2023 13:19:22 05/06/19 24 05/22/2023 URINA LYSIS , COMPL ETE W/REF NJ TO CULTU RE WBC NONE SEEN /hpf < or = 5 normal Not Available [address], [address], 05/22/2023 13:19:22 05/06/19 24 05/22/2023 URINA LYSIS , COMPL ETE W/REF NJ TO CULTU RE RBC NONE SEEN /hpf < or = 2 normal Not Available [address], [address], 05/22/2023 13:19:22 05/06/19 24 05/22/2023 URINA LYSIS , COMPL ETE W/REF NJ TO CULTU RE squamous epithelial cells NONE SEEN /hpf < or = 5 normal Not Available [address], [address], 05/22/2023 13:19:22 05/06/19 24 05/22/2023 URINA LYSIS , COMPL ETE W/REF NJ TO CULTU RE bacteria NONE SEEN /hpf none seen normal Not Available [address], [address], 05/22/2023 13:19:22 05/06/19 24 05/22/2023 URINA LYSIS , COMPL ETE W/REF NJ TO CULTU RE hyaline cast NONE SEEN /lpf none seen normal Not Available [address], [address], 05/22/2023 13:19:22 05/06/19 24 05/22/2023 URINA LYSIS , COMPL ETE W/REF NJ TO CULTU RE note This urine was caesar zed for the prese nce of WBC, RBC, bacte charli, casts , and other forme d eleme nts. Only those eleme nts seen were repor pooja. Not Available [address], [address], 05/22/2023 13:19:22 05/06/19 24 05/22/2023 REFLE XIVE URINE CULTU RE reflexive urine culture NO CULTU RE INDIC ATED Not Available [address], [address], 05/22/2023 13:19:23 05/06/19 24 05/22/2023 CBC (INCL UDES DIFF/ PLT) white blood cell count 4.6 thous and/u L 3.8-10 .8 normal Not Available [address], [address], 05/22/2023 13:19:24 05/06/19 24 05/22/2023 CBC (INCL UDES DIFF/ PLT) red blood cell count 4.15 karla on/uL 3.80-5 .10 normal Not Available [address], [address], 05/22/2023 13:19:24 05/06/19 24 05/22/2023 CBC (INCL UDES DIFF/ PLT) hemoglobin 12.0 g/dL 11.7-1 5.5 normal Not Available [address], [address], 05/22/2023 13:19:24 05/06/19 24 05/22/2023 CBC (INCL UDES DIFF/ PLT) hematocrit 37.2 % 35.0-4 5.0 normal Not Available [address], [address], 05/22/2023 13:19:24 05/06/19 24 05/22/2023 CBC (INCL UDES DIFF/ PLT) MCV 89.6 fL 80.0-1 00.0 normal Not Available [address], [address], 05/22/2023 13:19:24 05/06/19 24 05/22/2023 CBC (INCL UDES DIFF/ PLT) MCH 28.9 pg 27.0-3 3.0 normal Not Available [address], [address], 05/22/2023 13:19:24 05/06/19 24 05/22/2023 CBC (INCL UDES DIFF/ PLT) MCHC 32.3 g/dL 32.0-3 6.0 normal Not Available [address], [address], 05/22/2023 13:19:24 05/06/19 24 05/22/2023 CBC (INCL UDES DIFF/ PLT) RDW 14.0 % 11.0-1 5.0 normal Not Available [address], [address], 05/22/2023 13:19:24 05/06/19 24 05/22/2023 CBC (INCL UDES DIFF/ PLT) platelet count 249 thous and/u L 140-40 0 normal Not Available [address], [address], 05/22/2023 13:19:24 05/06/19 24 05/22/2023 CBC (INCL UDES DIFF/ PLT) MPV 11.4 fL 7.5-12 .5 normal Not Available [address], [address], 05/22/2023 13:19:24 05/06/19 24 05/22/2023 CBC (INCL UDES DIFF/ PLT) absolute neutrophils 1762 cells /uL 1500-7 800 normal Not Available [address], [address], 05/22/2023 13:19:24 05/06/19 24 05/22/2023 CBC (INCL UDES DIFF/ PLT) absolute lymphocytes 2259 cells /uL 850-39 00 normal Not Available [address], [address], 05/22/2023 13:19:24 05/06/19 24 05/22/2023 CBC (INCL UDES DIFF/ PLT) absolute monocytes 460 cells /uL 200-95 0 normal Not Available [address], [address], 05/22/2023 13:19:24 05/06/19 24 05/22/2023 CBC (INCL UDES DIFF/ PLT) absolute eosinophils 110 cells /uL 15-500 normal Not Available [address], [address], 05/22/2023 13:19:24 05/06/19 24 05/22/2023 CBC (INCL UDES DIFF/ PLT) absolute basophils 9 cells /uL 0-200 normal Not Available [address], [address], 05/22/2023 13:19:24 05/06/19 24 05/22/2023 CBC (INCL UDES DIFF/ PLT) neutrophils 38.3 % normal Not Available [address], [address], 05/22/2023 13:19:24 05/06/19 24 05/22/2023 CBC (INCL UDES DIFF/ PLT) lymphocytes 49.1 % normal Not Available [facility] [address] [address], [place], [address], 05/22/2023 13:19:24 05/06/19 24 05/22/2023 CBC (INCL UDES DIFF/ PLT) monocytes 10.0 % normal Not Available [address], [address], 05/22/2023 13:19:24 05/06/19 24 05/22/2023 CBC (INCL UDES DIFF/ PLT) eosinophils 2.4 % normal Not Available [address], [address], 05/22/2023 13:19:24 05/06/19 24 05/22/2023 CBC (INCL UDES DIFF/ PLT) basophils 0.2 % normal Not Available [address], [address], 05/22/2023 13:19:24 05/06/19 24 05/22/2023 D-DIM ER, QUANT ITATI VE D-dimer, quantitative Detail ed Refere merlee Darvin workman Report to Follow Not Available [address], [address], 05/22/2023 13:19:25 05/06/19 24 05/22/2023 AMYLA SE amylase 55 U/L 21-101 normal Not Available [address], [address], 05/22/2023 13:19:26 05/06/19 24 05/22/2023 LIPAS E lipase 14 U/L 7-60 normal Not Available [address], [address], 05/22/2023 13:19:26 03/12/19 25 03/13/2024 IRON AND TOTAL IRON LINDSEY NG CAPAC ITY iron, total 75 mcg/d L 40-190 normal Not Available [address], [address], 03/13/2024 09:32:24 03/12/1903/13/2024 IRON AND TOTAL IRON LINDSEY NG CAPAC ITY iron binding capacity 375 mcg/d L_(ca lc) 250-45 0 normal Not Available [address], [address], 03/13/2024 09:32:24 03/12/1903/13/2024 IRON AND TOTAL IRON LINDSEY NG CAPAC ITY % saturation 20 %_(ca lc) 16-45 normal Not Available [address], [address], 03/13/2024 09:32:24 03/12/1903/13/2024 CBC (INCL UDES DIFF/ PLT) white blood cell count 5.4 thous and/u L 3.8-10 .8 normal Not Available [address], [address], 03/13/2024 09:32:25 03/12/1903/13/2024 CBC (INCL UDES DIFF/ PLT) red blood cell count 4.18 karla on/uL 3.80-5 .10 normal Not Available [address], [address], 03/13/2024 09:32:25 03/12/1903/13/2024 CBC (INCL UDES DIFF/ PLT) hemoglobin 12.3 g/dL 11.7-1 5.5 normal Not Available [address], [address], 03/13/2024 09:32:25 03/12/1903/13/2024 CBC (INCL UDES DIFF/ PLT) hematocrit 38.3 % 35.0-4 5.0 normal Not Available [address], [address], 03/13/2024 09:32:25 03/12/1903/13/2024 CBC (INCL UDES DIFF/ PLT) MCV 91.6 fL 80.0-1 00.0 normal Not Available [address], [address], 03/13/2024 09:32:25 03/12/1903/13/2024 CBC (INCL UDES DIFF/ PLT) MCH 29.4 pg 27.0-3 3.0 normal Not Available [facility] [address], [address], 03/13/2024 09:32:25 03/12/1903/13/2024 CBC (INCL UDES DIFF/ PLT) MCHC 32.1 g/dL 32.0-3 6.0 normal For adult s, a sligh t decre ase in the calcu lated MCHC value (in the range of 30 to 32 g/dL) is most likel y not clini trudy signi ficbruce t; homer er, it shoul d be inter prete d with cauti on in corre latio n with other red cell jim eters and the patie nt's clini heaven condi tion. Not Available [address], [address], 03/13/2024 09:32:25 03/12/1903/13/2024 CBC (INCL UDES DIFF/ PLT) RDW 12.8 % 11.0-1 5.0 normal Not Available [address], [address], 03/13/2024 09:32:25 03/12/1903/13/2024 CBC (INCL UDES DIFF/ PLT) platelet count 252 thous and/u L 140-40 0 normal Not Available [address], [address], 03/13/2024 09:32:25 03/12/1903/13/2024 CBC (INCL UDES DIFF/ PLT) MPV 11.2 fL 7.5-12 .5 normal Not Available [address], [address], 03/13/2024 09:32:25 03/12/1903/13/2024 CBC (INCL UDES DIFF/ PLT) absolute neutrophils 2495 cells /uL 1500-7 800 normal Not Available [address], [address], 03/13/2024 09:32:25 03/12/1903/13/2024 CBC (INCL UDES DIFF/ PLT) absolute lymphocytes 2284 cells /uL 850-39 00 normal Not Available [address], [address], 03/13/2024 09:32:25 03/12/1903/13/2024 CBC (INCL UDES DIFF/ PLT) absolute monocytes 459 cells /uL 200-95 0 normal Not Available [address], [address], 03/13/2024 09:32:25 03/12/1903/13/2024 CBC (INCL UDES DIFF/ PLT) absolute eosinophils 151 cells /uL 15-500 normal Not Available [address], [address], 03/13/2024 09:32:25 03/12/1903/13/2024 CBC (INCL UDES DIFF/ PLT) absolute basophils 11 cells /uL 0-200 normal Not Available [address], [address], 03/13/2024 09:32:25 03/12/1903/13/2024 CBC (INCL UDES DIFF/ PLT) neutrophils 46.2 % normal Not Available [address], [address], 03/13/2024 09:32:25 03/12/19 25 03/13/2024 CBC (INCL UDES DIFF/ PLT) lymphocytes 42.3 % normal Not Available [address], [address], 03/13/2024 09:32:25 03/12/19 25 03/13/2024 CBC (INCL UDES DIFF/ PLT) monocytes 8.5 % normal Not Available [facility] [address], [address], 03/13/2024 09:32:25 03/12/19 25 03/13/2024 CBC (INCL UDES DIFF/ PLT) eosinophils 2.8 % normal Not Available [address], [address], 03/13/2024 09:32:25 03/12/19 25 03/13/2024 CBC (INCL UDES DIFF/ PLT) basophils 0.2 % normal Not Available [address], [address], 03/13/2024 09:32:25 03/17/19 25 03/17/2024 isaac metry testi ng* Spirometry Not Available [facility], [facility] [address], [place], [address], 03/16/2024 16:07:56 10/31/19 23 10/30/2022 isaac metry testi ng* No observ ation record ed. [email or web address] Not Available 2022 11:55:57 12/23/[address], lumba r spine , w/o contr ast No observ ation record ed. [address], [place], [address], 12/22/2022 19:33:15 05/05/19 24 xr chest Pa+la t [facility] [place] [address] Orderi ng Provid er: MICKEY RODRÍGUEZ ON Examin ation: Chest x-ray 2 view Access ion: [id number] Exam date/t zoë: 4:37 PM Reason For Exam: left sided chest wall pain Compar cata: No prior exam Techni que: PA and latera l views of the chest were obtain ed. Findin gs: The cardia c silhou ette, medias tinal contou rs, and pulmon dianna vessel s appear normal . The lungs are clear. No pneumo thorax . No consol idatio ns or effusi ons are seen. =====I MPRESS ION:== === No radiog raphic eviden ce of active chest diseas e. ====== ====== ====== === Ordere d By: MICKEY RODRÍGUEZ ON Electr onical ly Signed By: Josh Modi MD on 5:27 PM Interp reted By: Josh Modi MD, 5:[address], [place], [address], 05/19/2023 08:21:58 05/05/[address] ABD+p el wo con [facility] [place] [address] Orderi ng Provid er: MICKEY RODRÍGUEZ ON STUDY: CT ABD+PE L WO CON: 7:10 PM CLINIC AL INFORM ATION: Flank pain, kidney stone suspec pooja COMPAR CATA: CT chest/ abdome n/pelv is 021. TECHNI QUE: CT acquis ition of the abdome n and pelvis . Lisa l and sagitt al reform atted images provid ed. A dose loweri ng techni que was utiliz ed for this proced ure which may includ e but is not limite d to dose reduct ion techni ques, automa pooja exposu re contro l, and/or the use of iterat marisa recons tructi on in accord ance with ALARA princi ple. IV Contra st: None Oral contra st: None. FINDIN GS: LOWER CHEST: Unrema rkable . ABDOME N/PELV IS: Liver: Normal . Gallbl adder/ biliar y: Normal gallbl adder. No biliar y ductal dilati on. Pancre as: Normal . Spleen : Normal . Adrena l glands : Normal . Kidney s and ureter s: No hydron ephros is or hydrou reter. No renal calcif icatio ns.. Bladde r: Normal . Reprod uctive organs : Normal for age. Stomac h/killian l: Nonobs tructi ve appear ance. Modera te stool. Append ix: Normal . Lymph nodes: No lympha denopa thy. Perito neum: No intrap eriton eal free air. Small pelvic free fluid, unchan ged. Vessel s: Normal . MUSCUL OSKELE KEEGAN: Abdomi nal wall: No soft tissue mass. Bones: No acute osseou s abnorm ality. Soft tissue s: Unrema rkable . IMPRES BRITTANY: 1. No acute findin gs of the abdome n or pelvis . No renal stones . 2. Modera te stool. Referr ed By: Iza de los santos ly Signed By: Jenny Medina DO on 7:23 PM Interp reted By: Jenny Medina DO, 7:[address] [facility], [place], [address], 05/05/2023 20:32:40 06/19/19 24 06/19/2023 MAMMO , scree hugo, digit al, bilat eral No observ ation record ed. MARCEL[facility] [address] [facility], [place], [address], 06/19/2023 14:25:31 12/19/19 24 MRI brain wo con [facility] [place] [address] Orderi ng Provid er: GINA WHITAKER [facility] [address] [place] [address] EXAMIN ATION: MRI brain withou t contra st. ACCESS ION: [id number] EXAM DATE/T ZOË: 2023 12:44 PM REASON FOR EXAM: dizzin ess, headac hes interm ittent ly for one year COMPAR CATA: None availa ble TECHNI QUE: Multip lanar multis equenc e magnet ic resona nce images of the brain were obtain ed withou t quality assurance intern us contra st. FINDIN GS: No restri cted diffus ion to sugges t an acute infarc tion. No hemorr hagic focus of suscep tibili ty. Preser efraín mari-w madyson matter differ entiat ion. The sellar , callos al, pineal , and cranio verteb ral juncti on region s appear within normal limits . No extra- axial fluid collec tion. The ventri cles are normal in size. The basal cister ns appear normal . The proxim al intrac ranial arteri al flow voids have a normal appear ance. Modera te right maxill dianna sinus mucosa l thicke hugo. Fluid level within the right maxill dianna sinus. Parana ping sinuse s and mastoi d air cells are well aerate d. Orbita l conten ts appear normal . IMPRES BRITTANY: Normal appear ance of the brain. Ordere d By: GINA WHITAKER [facility] onical ly Signed By: Hima London MD on 2023 7:13 PM Interp reted By: Hima London MD, 2023 6:50 PM [facility] [address] [facility], [place], [address], 01/05/2024 08:27:22 03/16/1903/17/2024 elect darwin hurd am No observ ation record ed. naina [facility], [facility] [address] [facility] [address] [facility] [address], [place], [address], 03/17/2024 19:02:43 03/16/19 03/16/2024 isaac metry testi ng* No observ ation record ed. naina [facility], [facility] [address], [place], [address], 03/17/2024 19:02:54 03/16/19 25 03/16/2024 karie hurd am No observ ation record ed. naina [facility], [facility] [address], [place], [address], 03/17/2024 19:02:48 Result Notes None recorded. 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 Active Mervin Tineo MD [address], [place], [address], [facility] 3 17:02:34 Asthma 213853602 Active Mervin Tineo MD [address], [place], [address], [facility] 3 17:02:34 Vertigo 706805133 Active 023 Melvin Tineo MD [address], [place], [address], [facility] 3 11:55:23 Increased liver function 73181007 Active 023 Melvin Tineo MD [address], [place], [address], [facility] 3 17:36:58 Recurrent urinary tract infection 452972046 Active 023 Melvin Tineo MD [address], [place], [address], [facility] 3 17:26:28 Fatigue 10573298 Active 023 Melvin Tineo MD [address], [place], [address], [facility] 3 17:26:33 Problem Notes None recorded. Procedures Surgical History Date Name Laterality Status Provider Name and Address Organization Details Recorded Time 05/26/19 24 Date of Last Mammogram completed [facility] 07/14/2023 10:15:13 04/25/19 24 Date of Last Pap Smear [facility] 07/14/2023 11:12:19 03/30/19 21 procedure on uterus completed Melvin iTneo MD [address], [place], [address], [facility] 04/17/2020 14:17:13 11/24/19 20 Hysteroscopy completed Melvin Tineo MD [address], [place], [address], [facility] 11/25/2019 15:20:50 Dilation and curettage completed Melvin Tineo MD [address], [place], [address], [facility] 11/25/2019 15:19:53 Imaging Results Imaging Date Name Status LastModified by Organization Details LastModified Time 10/30/2022 spirometry testing* completed naina [facility] not available 11/05/2022 11:55:[address], lumbar spine, w/o contrast completed [place] [address] [facility] [address], [place], [address], 12/22/2022 19:33:15 05/05/2023 xr chest Pa+lat completed [facility] [address] [facility], [place], [address], 05/19/2023 08:21:58 05/05/2023 CT ABD+pel wo con completed [address], [place], [address], 05/05/2023 20:32:40 06/19/2023 MAMMO, screening, digital, bilateral completed [facility]ARC[facility] [address] [place] [address], [address], 06/19/2023 14:25:31 12/19/2023 MRI brain wo con completed [facility] [address], [address], 01/05/2024 08:27:22 03/17/2024 electrocardiogram completed [employer] [address], [place], [address], 03/17/2024 19:02:43 03/16/2024 spirometry testing* completed [employer], [facility] [address], [place], [address], 03/17/2024 19:02:54 03/16/2024 electrocardiogram completed [employer] [address], [place], [address], 03/17/2024 19:02:48 Procedure Notes None recorded. Medical Equipment None Reported. Allergies No known drug allergies Medications Name Sig Start Date Stop Date Status Note LastModified by Organization Details LastModified Time cyclobenza rodney 10 mg tablet TAKE 1 TABLET BY MOUTH AT BEDTIME NEEDED FOR MUSCLE SPASM 03/16 completed Not Available Not Available Not Available amoxicilli n 500 mg capsule TAKE 1 CAPSULE BY MOUTH THREE TIMES DAILY UNTIL GONE. 03/16 completed Not Available Not Available Not Available bupropion HCl SR 150 mg tablet,12 hr sustained- release TAKE 1 TABLET BY MOUTH DAILY 11/28 completed Not Available Not Available Not Available acetaminop hen 325 mg tablet 11/27 completed Not Available Not Available Not Available doxycyclin e hyclate 100 mg capsule 11/28 completed Not Available Not Available Not Available fluconazol e 150 mg tablet TAKE 1 TABLET BY MOUTH NOW 03/16 completed Not Available Not Available Not Available hydrocodon e 5 mg-acetami nophen 325 mg tablet TAKE 1 OR 2 TABLETS BY MOUTH EVERY 6 HOURS NEEDED FOR PAIN 03/16 completed Not Available Not Available Not Available methylpred nisolone 4 mg tablet 11/28 completed Not Available Not Available Not Available hydroxyzin e pamoate 50 mg capsule 03/16 completed -- on 25 mg now Not Available Not Available Not Available acetaminop hen 300 mg-codeine 30 mg tablet 04/17 completed Not Available Not Available Not Available ciprofloxa cindy 500 mg tablet TAKE 1 TABLET BY MOUTH TWICE DAILY 11/28 completed Not Available Not Available Not Available sulfametho xazole 800 mg-trimeth oprim 160 mg tablet TAKE 1 TABLET BY MOUTH EVERY 12 HOURS 03/16 completed Not Available Not Available Not Available omeprazole 40 mg capsule,de layed release TAKE 1 CAPSULE BY MOUTH EVERY DAY IN THE EVENING 2023 active Not Available Not Available Not Avai lable aspirin 81 mg tablet,del ayed release 10/30 completed Not Available Not Available Not Available tramadol 50 mg tablet TAKE 1 TABLET BY MOUTH UP TO TWICE DAILY NEEDED 05/15 completed Not Available Not Available Not Available acetaminop hen 500 mg tablet 04/17 completed Not Available Not Available Not Available amoxicilli n 500 mg tablet 04/17 completed Not Available Not Available Not Available ketorolac 10 mg tablet 11/28 completed Not Available Not Available Not Available oxycodone- acetaminop hen 5 mg-325 mg tablet 05/15 completed Not Available Not Available Not Available alprazolam 0.5 mg tablet TAKE 1 TABLET BY MOUTH TAKEN JUST BEFORE BOARDING . CAN CAUSE DROWSINE SS AND COGNITIV E IMPAIRME NT active Not Available Not Available No t Available amoxicilli n 875 mg tablet 04/17 completed Not Available Not Available Not Available DOK 100 mg capsule 11/27 completed Not Available Not Available Not Available tamsulosin 0.4 mg capsule TAKE 1 CAPSULE BY MOUTH EVERY DAY 12/31 completed Not Available Not Available Not Available trazodone 100 mg tablet active Not Available Not Available Not Available meclizine 25 mg tablet 1 pill once, up to 3 times a day as needed; can can drowsine ss 03/16 completed Not Available Not Available Not Available benzonatat e 100 mg capsule 04/17 completed Not Available Not Available Not Available fluoxetine 10 mg capsule active Not Available Not Available Not Available estradiol 2 mg tablet 11/28 completed Not Available Not Available Not Available norethindr one acetate 1 mg-ethinyl estradiol 20 mcg tablet TAKE 1 TABLET BY MOUTH DAILY CONTINUO USLY STARTING ON DAY 1 OF PERIOD 11/28 completed Not Available Not Available Not Available ergocalcif jackelin (vitamin D2) 1,250 mcg (50,000 unit) capsule 11/28 completed Not Available Not Available Not Available ibuprofen 600 mg tablet 04/17 completed Not Available Not Available Not Available albuterol sulfate HFA 90 mcg/actuat ion aerosol inhaler INHALE 2 PUFFS BY MOUTH EVERY 4 HOURS NEEDED FOR DIFFICUL T BREATHIN G active Not Available Not Available No t Available ferrous sulfate 325 mg (65 mg iron) tablet,del ayed release 1 tab twice a day (from thru each month); no iron from thru of each month. 03/16 completed Not Available Not Available Not Available fluoxetine 20 mg capsule 03/16 completed -- on 10 mg now Not Available Not Available Not Available naproxen 500 mg tablet 03/16 completed Not Available Not Available Not Available hydroxyzin e pamoate 25 mg capsule active Not Available Not Available Not Available enoxaparin 40 mg/0.4 mL subcutaneo us syringe ADMINIST ER 1 SYRINGE UNDER THE SKIN DAILY 11/28 completed Not Available Not Available Not Available azithromyc in 500 mg tablet 11/28 completed Not Available Not Available Not Available nitrofuran toin monohydrat e/macrocry stals 100 mg capsule 10/30 completed Not Available Not Available Not Available chlorhexid ine gluconate 0.12 % mouthwash 04/17 completed Not Available Not Available Not Available FeroSul 325 mg (65 mg iron) tablet TAKE 1 TABLET BY MOUTH TWICE DAILY ON THE TO THE OF EACH MONTH 05/11 completed Not Available Not Available Not Available [place] 0.3 % 11/28 completed Not Available Not Available Not Available Prena1 Rozina 30 mg-1.4 mg-200 mg capsule,im mediate - delay release Take 1 capsule every day by oral route for 30 days. 10/30 completed Not Available Not Available Not Available Prena1 Rozina 1QD 12/[address] Elton Regan Not Available Not Available Not Available iron bisglycina te chelate 29 mg capsule Take 1 capsule every day by oral route after meals. 2022 active Not Available Not Available Not Avai lable Gemmily 1 mg-20 mcg (24)/75 mg (4) capsule TAKE ONE CAPSULE BY MOUTH DAILY - ACTIVE PILLS ONLY 11/28 completed Not Available Not Available Not Available WesTab Plus 27 mg iron-1 mg tablet TAKE 1 TABLET BY MOUTH DAILY 11/[address] Villanueva bilingual sales representative Not Available Not Available Not Available Vitals Date Recorded Body height Respiratory rate Body temperature Heart rate Systolic blood pressure Diastolic blood pressure Provider Name and Address Organization Details Last Updated DateTime 3 167.64 cm 16 /min 97.6 [degF] 74 /min 130 mm[Hg] 82 mm[Hg] [facility] 3 11:25:08 Date Recorded Body height Heart rate Respiratory rate Body temperature Body mass index (BMI) Body weight Systolic blood pressure Diastolic blood pressure Provider Name and Address Organization Details Last Updated DateTime 3 167.64 cm 94 /min 16 /min 94 [degF] 36.2 kg/m2 574452. 69 g 124 mm[Hg] 85 mm[Hg] [facility] 3 16:50:33 Date Recorded Body height Heart rate Respiratory rate Body temperature Body mass index (BMI) Body weight Systolic blood pressure Diastolic blood pressure Provider Name and Address Organization Details Last Updated DateTime 4 167.64 cm 76 /min 16 /min 97.3 [degF] 34.2 kg/m2 97013.5 8 g 116 mm[Hg] 80 mm[Hg] [facility] 4 15:30:50 Date Recorded Body height Heart rate Respiratory rate Body temperature Body mass index (BMI) Body weight Systolic blood pressure Diastolic blood pressure Provider Name and Address Organization Details Last Updated DateTime 4 167.64 cm 91 /min 16 /min 97.5 [degF] 35.2 kg/m2 59878.1 4 g 131 mm[Hg] 85 mm[Hg] [facility] 4 10:14:15 Date Recorded Body height Heart rate Respiratory rate Body temperature Body mass index (BMI) Body weight Systolic blood pressure Diastolic blood pressure Provider Name and Address Organization Details Last Updated DateTime 5 167.64 cm 82 /min 16 /min 97.4 [degF] 38.3 kg/m2 171876. 39 g 124 mm[Hg] 76 mm[Hg] [facility] 5 15:47:21 Social History Question Answer Notes LastModified by Organizat ion Details LastModified Time Tobacco Smoking Status Never Smoker Laura Niison [facility] 11/25/2019 14:46:59 Do You Have An Advance Directive? No Information not available 11/25/2019 What Is Your Level Of Alcohol Consumption? Occasional Information not available 11/25/2019 What Is Your Level Of Caffeine Consumption? Occasional Information not available 11/25/2019 How Much Tobacco Do You Chew? None Information not available 11/25/2019 What Is Your Code Status? Full Code Information not available 11/25/2019 In The 14 Days Before Symptom Onset, Have You Had Close Contact With A Laboratory-confi rmed COVID-19 While That Case Was Ill? No Information not available 05/15/2020 In The 14 Days Before Symptom Onset, Have You Had Close Contact With A Person Who Is Under Investigation For COVID-19 While That Person Was Ill? No Information not available 05/15/2020 Have You Been To An Area Known To Be High Risk For COVID-19? 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 Information not available 11/25/2019 Are You Currently Employed? Yes Information not available 11/25/2019 What Type Of Diet Are You Following? REGULAR Information not available 11/25/2019 Which Illicit Or Recreational Drugs Have You Used? None Information not available 11/25/2019 Do You Or Have You Ever Used E-cigarettes Or Vape? Never Used Electronic Cigarettes Information not available 11/25/2019 What Is Your Occupation? [employer] -- To See If They Have Proper Staffing For [employer]ones Information not available 11/25/2019 Marital Status Informatio n not available 11/25/2019 What Was The Date Of Your Most Recent Tobacco Screening? 03/16/2024 [email or web address] Information not available 03/16/2024 Seat Belts Used Routinely Yes Information not available 11/25/2019 Do You Or Have You Ever Used Smokeless Tobacco? Never Used Smokeless Tobacco Information not available 11/25/2019 How Much Tobacco Do You Smoke? No Information not available 11/25/2019 How Many Years Have You Smoked Tobacco? 0 Information not available 11/25/2019 Sex: Unknown Functional Status Question Answer Note LastModified by Organization D etails LastModified Time What is your exercise level? None Information not available 11/25/2019 Mental Status None recorded. Family History Relationship Description Onset Age of this Age Resolved Age Notes LastModified by Organization Details LastModified Time Sister Diabetes mellitus [email or web address] Not available 2019 14:37:43 Maternal Aunt Malignant tumor of breast Dx'd in her 40's [email or web address] Not available 11/25/2019 14:46:19 Mother Sleep disorder Sleep apnea lcallison Not available 11/25/2019 14:46:32 Paternal Grandmother Cerebrovascu lar accident -- Dx'd around her 70s Not available 11/25/2019 15:16:36 Maternal Grandmother Sarcoidosis MS & Sarcoi dosis -- dx'd in her 50s Not available 11/25/2019 15:17:15 Notes:-- no FH for CAD Medical History No medical history recorded. Gynecological History Statement/Question Response Date of Last Pap Smear 04/25/2023 Date of Last Mammogram 05/26/2023 Obstetrics History GPAL:G 3 P 0 0 3 0 Type Value Induced 1 Spontaneous 2 Total 3 Immunizations Vaccine Type Date Status Note Provider Name and Address Organization Details Recorded Time Tdap 11/25/19 cancelled patient objection Melvin Tineo MD [address], [place], [address], [facility] 11/25/2019 15:38:48 Influenza, split virus, trivalent, preservative 11/25/19 20 cancelled patient objection Melvin Tineo MD [address], [place], [address], [facility] 11/25/2019 15:38:48 Past Encounters Encounter ID Performer Location Encounter Start Date Encounter Closed Date Diagnosis/Indication Diagnosis SNOMED-CT Code Diagnosis ICD10 Code Diagnosis Note [id number] Melvin Tineo MD [employer] [facility] [address] [place] [address] 11/25/2019 14:16:35 11/25/2019 15:44:59 Palpitations 26626637 R00.2 Family his tory of diabetes mellitus 065564283 Z83.3 Body mass index 30+ - obesity 822906588 Z68.34 -- advised weight loss-- pt's BMI today is 34.7 (ideal is between 20-25) Hepatitis C screening 41 2011201 Z11.59 Active or passive immunization 242345521 Z23 Screening for malignant neoplasm of cervix 413123368 Z12.4 -- follows Electroneurodiagnostic Technologist Dr Lupillo Jolly (last appt was around 11/09/2019) Asthma 674319036 J45.90 9 [id number] Melvin Tineo MD [employer], [facility] [address] [place] [address] 12/13/2019 15:57:55 12/13/2019 17:56:52 Adult health examination 330971248 Z00.00 Palpitations 88863769 R0 0.2 -- may be from anemia-- normal TFTs-- EKG done on 11/25/19 Family his tory of diabetes mellitus 782561975 Z83.3 -- A1c level of 4.9 (12/02/19) Body mass index 30+ - obesity 962156037 Z68.34 -- advised weight loss-- pt's BMI today is 34.7 (ideal is between 20-25) Hepatitis C screening 41 7043112 Z11.59 Hep C tested negative on 12/02/19 Asthma 498602076 J45.90 9 -- spirometry last done on 11/25/19; have not used rescue inhaler since 2010 Active or passive immunization 203068285 Z23 Screening for malignant neoplasm of cervix 475977404 Z12.4 -- follows Electroneurodiagnostic Technologist Dr Lupillo Jolly (last appt was around 11/09/2019) Iron defic iency anemia 10682595 D50.9 Dysmenorrhea 337109821 N 94.6 -- pt counseled on when go to the Emergency Room-- 1 tab taken (together w/ 1 tab of Tylenol 500 mg) once up to twice a day as needed [id number] Melvin Tineo MD [employer], [facility] [address] [place] [address] 04/17/2020 12:02:08 04/17/2020 14:33:15 Dysmenorrhea 316107644 N94.6 -- pain resolved left w/ residual discomfort after Dr Elton Regan ([facility] ty Doctor) removed 10 fibroid tumor & drained 5 ovarian cysts 03/30/20 -- no fever, chill, n/v, bleeding Iron defic iency anemia 50097465 D50.9 -- Dr Elton Regan reomoved 10 fibroid tumor & drained 5 ovarian cysts 03/30/20 -- no fever, chill, n/v, bleeding Family his tory of diabetes mellitus 885300918 Z83.3 -- A1c level of 4.9 (12/02/19) Body mass index 30+ - obesity 793587935 Z68.35 -- advised weight loss; pt gained 1 # since her last visit-- pt's BMI today is 35 (ideal is between 20-25) Hepatitis C screening 41 3873085 Z11.59 Hep C tested negative on 12/02/19 Asthma 246000465 J45.90 9 -- spirometry last done on 11/25/19; have not used rescue inhaler since 2010-- no flares Active or passive immunization 608200704 Z23 Screening for malignant neoplasm of cervix 333453812 Z12.4 -- follows Electroneurodiagnostic Technologist Dr Lupillo Jolly (last appt was around 11/09/2019) Uterine leiomyoma 121184 05 D25.9 -- Dr Elton Regan reomoved 10 fibroid tumor & drained 5 ovarian cysts 03/30/20 -- no fever, chill, n/v, bleeding Low blood pressure 78059 003 I95.9 -- must go to the Emergency Room (due to dehydratio n vs sepsis)-- only drinking 30-40 fl oz of fluids daily-- advised pt to go to the Emergency Room today (spouse will come and take pt to the ER). [id number] Melvin Tineo MD [employer], [employer] [address] [place] [address] 05/15/2020 15:15:39 05/15/2020 16:17:36 Hypotensive episode 38676052 I95.9 -- resolved -- only drinking 30-40 fl oz of fluids daily -- advised pt to go to the Emergency Room today (spouse will come and take pt to the ER). Iron defic iency anemia 04829407 D50.9 -- Dr Elton Regan reomoved 10 fibroid tumor & drained 5 ovarian cysts 03/30/20 -- check lab(s) within 5 days from 05/15/20 Asthma 785473617 J45.90 9 -- spirometry last done on 11/25/19; have not used rescue inhaler since 2010 -- no flares Dysmenorrhea 719039235 N 94.6 -- pain resolved left w/ residual discomfort after Dr Elton Regan (infertili ty Doctor) removed 10 fibroid tumor & drained 5 ovarian cysts 03/30/20 -- no fever, chill, n/v, bleeding Family his tory of diabetes mellitus 304698192 Z83.3 -- A1c level of 4.9 (12/02/19) Body mass index 30+ - obesity 283655631 Z68.34 -- advised weight loss; pt lost 5 # since her last visit -- pt's BMI today is 34.2 (ideal is between 20-25) Hepatitis C screening 41 9124758 Z11.59 Hep C tested negative on 12/02/19 Active or passive immunization 635145555 Z23 Screening for malignant neoplasm of cervix 996780569 Z12.4 -- follows Electroneurodiagnostic Technologist Dr Lupillo Jolly (last appt was around 11/09/2019) Hyperlipid emia screening 285352951 Z13.220 Vitamin D deficiency 347 68861 E55.9 [id number] Melvin Tineo MD [employer], [employer] [address] [place] [address] 11/27/2020 14:59:21 11/27/2020 17:04:02 Iron deficiency anemia 21081585 D50.9 -- Dr Elton Regan reomoved 10 fibroid tumor & drained 5 ovarian cysts 03/30/20 -- check lab(s) within 5 days from 05/15/20 Asthma 733643886 J45.90 9 -- spirometry last done on 11/25/19; have not used rescue inhaler since 2010 -- no flares Vitamin D deficiency 347 52155 E55.9 Body mass index 30+ - obesity 873825383 Z68.34 -- advised weight loss; pt gained 7 # since her last visit -- pt's BMI today is 35.3 (ideal is between 20-25) Family his tory of diabetes mellitus 130048753 Z83.3 -- A1c level of 4.9 (12/02/19) Hyperlipid emia screening 178096930 Z13.220 Hepatitis C screening 41 0008799 Z11.59 Hep C tested negative on 12/02/19 Active or passive immunization 331039578 Z23 -- advised to get Covid vaccinatio ns Screening for malignant neoplasm of cervix 950005031 Z12.4 -- follows Electroneurodiagnostic Technologist Dr Lupillo Jolly (last appt was around 11/09/2019) Complete miscarriage 156 954590 O03.9 (x3 -- 2014, 2015, & Oct 2020) [id number] Melvin Tineo MD [employer] [address] [place] [address] 05/28/2021 14:59:33 05/28/2021 16:29:47 Adult health examination 902257156 Z00.00 Complete miscarriage 156 921298 O03.9 (x3 -- 2014, 2015, & Oct 2020) -- with positive NANCY & DNA ds antibody-- normal RPR, B2 glycoprote in I (IgG) and PT Iron defic iency anemia 22116256 D50.9 -- Dr Elton Regan reomoved 10 fibroid tumor & drained 5 ovarian cysts 03/30/20 -- no Anemia on CBC on 01/31/21; not on Iron as her fertility physician has her on Pre-donald vitamins Asthma 051679685 J45.90 9 -- spirometry last done on 11/25/19; have not used rescue inhaler since 2010 -- no flares Vitamin D deficiency 347 29790 E55.9 -- vit D level of 33 (01/31/21) Body mass index 30+ - obesity 816646134 Z68.34 -- advised weight loss; pt lost 1 # since her last visit -- pt's BMI today is 35.2 (ideal is between 20-25) Family his tory of diabetes mellitus 789485080 Z83.3 -- A1c level of 4.9 (12/02/19) --> 5.3 (01/31/21) Hyperlipid emia screening 105336673 Z13.220 -- lipid panel decent on 01/31/21 Hepatitis C screening 41 2870641 Z11.59 Hep C tested negative on 12/02/19 Active or passive immunization 831787217 Z23 -- advised to get Covid vaccinatio ns-- Tdap repeatedly ordered but no done; pt stated that she will probable not do it. Screening for malignant neoplasm of cervix 969778749 Z12.4 -- follows Electroneurodiagnostic Technologist Dr Lupillo Jolly (last appt was around 11/09/2019) [id number] Melvin Tineo MD [facility] [address] [place] [address] 11/28/2021 13:17:56 11/28/2021 15:12:00 Iron deficiency anemia 53392052 D50.9 -- Dr Elton Regan reomoved 10 fibroid tumor & drained 5 ovarian cysts 03/30/20 -- no Anemia on CBC on 01/31/21; not on Iron as her fertility physician has her on Pre- vitamins Asthma 985790848 J45.90 9 -- spirometry last done on 11/25/19; have not used rescue inhaler since 2010 -- no flares Body mass index 30+ - obesity 695936786 Z68.34 -- advised weight loss; pt lost 6 # since her last visit -- pt's BMI today is 34.2 (ideal is between 20-25) Diabetes erika collinsitus screening 557189282 Z13.1 Hepatitis C screening 41 3938136 Z11.59 -- tested negative for Hepatitis C on 12/02/19 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 patient was diagnose with kidney infection . patient was discharge Bactrim 800/160 mg and flomax 0.4mg-- pt instructed that she will need to CT of her abd/pelvis done, however, she will also need to have hcg done prior to me ordering her abd/pelvis CT [id number] Melvin Tineo MD [employer], [facility] [address] [place] [address] 06/26/2022 15:29:01 06/26/2022 17:18:28 Adult health examination 353053601 Z00.00 Iron defic iency anemia 28908932 D50.9 -- Dr Elton Regan reomoved 10 fibroid tumor & drained 5 ovarian cysts 03/30/20 -- no Anemia on CBC on 01/31/21; not on Iron as her fertility physician has her on Pre- vitamins Asthma 113910610 J45.90 9 -- spirometry last done on 11/25/19; have not used rescue inhaler since 2010 -- no flares Anti-nucle ar factor detected 570939811 R76.8 -- still completely asymptomat ic Body mass index 30+ - obesity 746004052 Z68.35 -- advised weight loss; pt gained 7 # since her last visit -- pt's BMI today is 35.3 (ideal is between 20-25) Diabetes erika marvin screening 606501254 Z13.1 Hepatitis C screening 41 2614298 Z11.59 -- tested negative for Hepatitis C on 12/02/19 HIV screening 567660325 Z11.4 Screening for malignant neoplasm of breast 881667264 Z12.39 Screening for malignant neoplasm of cervix 646261961 Z12.4 -- follows Electroneurodiagnostic Technologist Dr Lupillo Jolly (last appt was around 11/09/2019) [id number] Melvin Tineo MD [employer], [facility] [address] [place] [address] 10/30/2022 10:07:52 10/30/2022 12:22:27 Vertigo 517561449 R42 -- happens even when laying supine in bed (like the room is spinning). Iron defic iency anemia 81184604 D50.9 -- Dr Elton Regan reomoved 10 fibroid tumor & drained 5 ovarian cysts 03/30/20 -- no Anemia on CBC on 01/31/21; not on Iron as her fertility physician has her on Pre-donald vitamins HIV screening 055512752 Z11.4 Hepatitis C screening 41 5749602 Z11.59 -- tested negative for Hepatitis C on 12/02/19 Hyperlipid emia screening 879154679 Z13.220 -- lipid panel decent on 01/31/21 Asthma 179032040 J45.90 9 -- spirometry last done on 11/25/19; have not used rescue inhaler since 2010 -- no flares & had not used a rescue inhaler for over 1 year [id number] Melvin Tineo MD [employer], [employer] [address] [place] [address] 01/07/2023 15:16:27 01/07/2023 17:56:33 Recurrent urinary tract infection 558297647 N39.0 -- just finished ABx last week and has no residual sx. Fatigue 19794328 R53.83 Screening for cardiovascular system disease 391622861 Z13.6 -- normal lipid panel on 01/03/23 Vertigo 375602332 R42 -- happens even when laying supine in bed (like the room is spinning). Iron defic iency anemia 06310746 D50.9 -- Dr Elton Regan removed 10 fibroid tumor & drained 5 ovarian cysts 03/30/20Seve re Iron deficiency Anemia-- inform pt to restart Ferrous Sulfate BID.-- okay to take w/ food if any nausea-- recheck labs on 04/10/23 [id number] eMlvin Tineo MD [employer] [facility], [facility] [address] [place] [address] 05/05/2023 13:48:12 05/05/2023 16:13:07 Left upper quadrant pain 499078902 R10.12 Left flank pain 12691876 9 R10.9 [id number] Melvin Tineo MD [employer] [address] [place] [address] 07/14/2023 09:20:57 07/14/2023 11:22:23 Adult health examination 712715478 Z00.00 Left upper quadrant pain 050081415 R10.12 -- CT scan on 05/05/23 showed moderate stool.-- symptoms have completely resolved Left flank pain 24789813 9 R10.9 -- symptoms have completely resolved Iron defic iency anemia 95357808 D50.9 -- Dr Elton Regan removed 10 fibroid tumor & drained 5 ovarian cysts 03/30/20-- informed pt to restart Ferrous Sulfate BID.-- okay to take w/ food if any nausea-- recheck labs around 08/21/23 Vertigo 906566734 R42 -- symptoms have completely resolved Asthma 318379067 J45.90 9 -- no flares & had not used a rescue inhaler for over 1 year (last use was in 2019) Body mass index 30+ - obesity 362923895 Z68.35 -- advised weight loss; pt gained 6 # since her last visit -- pt's BMI today is 35.2 (ideal is between 20-25)Curr ent ASCVD risk calculatio n is 0.6% (07/14/23) Hepatitis C screening 41 2398611 Z11.59 -- tested negative for Hepatitis C on 12/02/19 HIV screening 745905906 Z11.4 -- tested negative for HIV on 01/03/23 Active or passive immunization 547374111 Z23 -- advised to get Covid vaccinatio ns-- Tdap repeatedly ordered but no done; on 07/14/23, pt reported she will decline the Tdap Screening for malignant neoplasm of breast 800526684 Z12.31 -- mammogram done 06/19/23 Gynecologi c examination 14095231 Z01.419 [id number] Melvin Tineo MD [employer] [address] [place] [address] 03/16/2024 15:02:57 03/16/2024 16:37:45 Iron deficiency anemia 44312461 D50.9 -- Dr Elton Regan removed 10 fibroid tumor & drained 5 ovarian cysts 03/30/20-- resolved Asthma 563428923 J45.90 9 -- no flares & had not used a rescue inhaler for over 1 year (last use was in 2019) Body mass index 30+ - obesity 307453703 Z68.35 -- advised weight loss; pt gained 6 # since her last visit -- pt's BMI today is 35.2 (ideal is between 20-25)Curr ent ASCVD risk calculatio n is 0.6% (07/14/23) Hepatitis C screening 41 4135445 Z11.59 -- tested negative for Hepatitis C on 12/02/19 HIV screening 604896910 Z11.4 -- tested negative for HIV on 01/03/23 Active or passive immunization 338907691 Z23 -- advised to get Covid vaccinatio ns-- Tdap repeatedly ordered but no done; on 07/14/23, pt reported she will decline the Tdap Screening for malignant neoplasm of breast 701290386 Z12.31 -- mammogram done 06/19/23 Gynecologi c examination 88661889 Z01.419 Atypical chest pain 1025 31052 R07.89 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 -- doing well lately. Health Concerns Section Related Observation LastModified by Organization Detai ls LastModified Time None Recorded Concern Status LastModified by Organization Details LastModified Time None Recorded Advance Directives Directive N: Payers Encounter Date Sequence Insurance Name Policy Number Policy Turner Covered Member ID Turner Member ID Guarantor Name 10/30/2022 1 [facility] [id number] redrm Morales[place] [id number] [employer]rm [place] 01/07/2023 1 [facility] [id number] Ramon Kulkarni [id number] 1 redrm [place] 05/05/2023 1 [facility] [id number] Anne Marierm Kulkarni [id number] 1 redrm [place] 07/14/2023 1 [facility] [employer] [id number] Anne Marierm Shad [id number] 1 redrm [place] 03/16/2024 1 [facility] [id number] Ramon Kulkarni [id number] 1 Ramon Kulkarni Notes Date Note Type Note Provider Name and Address Organization Details Recorded Time 10/30/2022 text/html Pt started w/ episodic dizziness almost 3 weeks ago -- has spurts and than it will stop, yesterday had a very very bad headache & is almost impercetible today.Pt has not been taking iron pills every day. Overall, pt feels well and has no other c/o. Patient denies any jaw or neck discomfort, left arm pain/left arm discomfort, chest discomfort/pain, diaphoresis, breathing symptoms/chest tightness, indigestion sx, n/v, any angina equivalent symptoms, etc. Melvin Tineo MD [address] [facility] [address], [place], [address], [facility] 01/07/2023 17:29:40 01/07/2023 text/html Pt comes in w/ c /o mild fatigue (anemic), and once a year UTI, and persistent vertigo (markedly improved; last episode a few days ago), and f/u of NAT. Pt feels well and has no c/o. Pt has no new sx and no increasing sx. Patient denies any jaw or neck discomfort, left arm pain/left arm discomfort, chest discomfort/pain, diaphoresis, breathing symptoms/chest tightness, indigestion sx, n/v, any angina equivalent symptoms, etc. Melvin Tineo MD [address] [facility] [address], [place], [address], [facility] 01/07/2023 17:53:49 05/05/2023 text/html Pt p/w LUQ abdominal pain radiating all the way to left upper flank. This has been going on since end of Dec 2022 (but was very mild); in the last 2 weeks, symptoms have been getting worse.Pt reported that her abdomen is sore to touch especially at LUQ. She has occasional nausea. Pt also reported she fell down the stairs aroudn 04/21/23. Pt was trying to climb over the gate instead of opening the gate. She had a slow fall on to her Rt side. No head injury. Pt denies any f/c, vomiting, HUGHES/SOB , but feels cold a lot. Nothing makes it better. Taking deep breath or cough or touching her left side makes pain comes on. If she keep still, she does not feel it. Pt describe pain as a throb or dull ache. Melvin Tineo MD [address] [facility] [address], [place], [address], [facility] 05/05/2023 16:14:12 07/14/2023 text/html Pt comes in for annual PE, f/u of Anemia, Asthma, Vertig (gone), abd/flank pain (gone) and weight monitoring. Pt feels well and has no c/o. Pt has no new sx and no increasing sx. Patient denies any jaw or neck discomfort, left arm pain/left arm discomfort, chest discomfort/pain, diaphoresis, breathing symptoms/chest tightness, indigestion sx, n/v, any angina equivalent symptoms, etc. Melvin Tineo MD [address] [facility] [address], [place], [address], [facility] 07/14/2023 11:03:15 03/16/2024 text/html Pt comes in w/ occasional chest pain, and f/u of NAT (resolved), Asthma, and weight monitoring. Pt feels well and has no c/o. Pt has no new sx and no increasing sx. Patient denies any jaw or neck discomfort, left arm pain/left arm discomfort, chest discomfort/pain, diaphoresis, breathing symptoms/chest tightness, indigestion sx, n/v, any angina equivalent symptoms, etc. Melvin Tineo MD [address] [facility] [address], [place], [address], [facility] 03/16/2024 16:22:19 OBGyn Episode No OBEpisode recorded.
--- OUTSIDE RECORDS SUMMARY | 2024-04-30 13:26 | XMS_ITS | Referral Summary ---
Author Organization [facility] Address [address] [place] [address] Care Team Providers Care Principal Web Developer Name Role Phone Melvin Tineo MD Primary Care Provider [phone] Source Comments [facility],non-owned Affiliates and Associated Physician Practices is amultiple site organization consisting of ambulatory clinics and hospital sitesin [place], [place], [place] and [place]. This disclosure is being madepursuant to the Care Everywhere program and may not contain all information available regarding this patient. Last updated 17.[facility] Allergies No known active allergies Medications * Be aware that medications may not be up to date on this document. Alwaysverify current medications with the patient. Medication Sig Dispensed Refills Start Date End Date Status acetaminophen (TYLENOL) 500 MG tablet Take 500-1,000 mg by mouth 09/29/2019 Active albuterol HFA (PROVENTIL;VENTOL IN;PROAIR) 108 (90 Base) MCG/ACT inhaler INHALE 2 PUFFS BY MOUTH EVERY 4 HOURS NEEDED FOR DIFFICULT BREATHING 03/11/2020 Active Cholecalciferol 50 MCG (1999 UT) Active FEROSUL 325 (65 Fe) MG tablet TK 1 T PO QD. 12/05/2019 Active traMADol (ULTRAM) 50 MG tablet TAKE 1 TABLET BY MOUTH UP TO TWICE DAILY NEEDED 12/13/2019 Active acetaminophen (TYLENOL) 325 MG tablet Take 2 (two) tablets by mouth every 4 hours as needed for Fever or Pain Maximum allowable Acetaminophen amount = 4 Grams (4000 mg) / 24 hours. 30 tablet 1 03/30/2020 Active oxyCODONE-acetami nophen (PERCOCET) 5-325 MG tablet Take 1 (one) tablet by mouth every 6 hours as needed for Pain 15 tablet 03/30/2020 Active ibuprofen (MOTRIN) 600 MG tablet Take 1 (one) tablet by mouth every 6 hours as needed for Pain 30 tablet 1 03/30/2020 Active docusate sodium (COLACE) 100 MG capsule Take 1 (one) capsule by mouth 2 times daily 15 capsule 03/30/2020 Active ondansetron, disintegrating, (ZOFRAN ODT) 4 MG tablet Take 1 (one) tablet by mouth every 6 hours as needed for Nausea/Vomiting Allow tablet to dissolve on the tongue 15 tablet 08/08/2020 Active ibuprofen (MOTRIN) 600 MG tablet Take 1 (one) tablet by mouth every 6 hours as needed for Pain 30 tablet 12/25/2020 Active ondansetron, disintegrating, (ZOFRAN ODT) 4 MG tablet Take 1 (one) tablet by mouth every 6 hours as needed for Nausea/Vomiting Allow tablet to dissolve on the tongue 20 tablet 12/25/2020 Active Active Problems Problem Noted Date Diagnosed Date Diagnosis unknown 03/30/2020 Immunizations Name Administration Dates Next Due Rho D Immune Globulin 08/11/2014 Social History Tobacco Use Types Packs/Day Years Used Date Smoking Tobacco: Never Smokeless Tobacco: Never Alcohol Use Standard Drinks/Week Comments No 0 (1 standard drink = 0.6 oz pur e alcohol) Sex and Gender Information Value Date Recorded Sex Assigned at Not on file Gender Identity Not on file Sexual Orientation Not on file Last Filed Vital Signs Vital Sign Reading Time Taken Comments Blood Pressure 137/78 12/25/2020 12:19 PM CDT Pulse 77 12/25/2020 12:19 PM CDT Temperature 36.7 C (98 F) 12/25/2020 5:50 AM CDT Respiratory Rate 12 12/25/2020 12:19 PM CDT Oxygen Saturation 100% 12/25/2020 12:19 PM CDT Inhaled Oxygen Concentration - - Weight 97.5 kg (215 lb) 12/25/2020 5:50 AM CDT Height 167.6 cm (5' 6 ) 12/25/2020 5:50 AM CDT Body Mass Index 34.7 12/25/2020 5:50 AM CDT Plan of Treatment Not on file Care Teams Principal Web Developer Relationship Specialty Start Date End Date Melvin Tineo MD [address] [place] [address] [address] [place] [address] PCP - General Internal Medicine 03/24/20
--- OUTSIDE RECORDS SUMMARY | 2024-04-30 13:26 | XMS_ITS ---
Author Organization [facility] Address [address] [place] [address] Care Team Providers Care Core Finisher Name Role Phone Hallie Byrne Primary Care Provider Mari Byrne Unavailable Unavailable Allergies No Known Allergies REASON FOR VISIT Hospital F/U Medications Medication SIG (Take, Route, Frequency, Duration) [...] W/U Status Risk Notes Problem Major depression (152542953) Major depression (F32.9) Active confirmed Problem Generalized anxiety disorder (60486545) MARIANA (generalized anxiety disorder) (F41.1) Active confirmed Vital Signs Weight 237 lbs 01/27/2024 Height 66 in 01/27/2024 BMI 38.25 kg/m2 01/27/2024 Blood pressure systolic 128 mm Hg 01/27/20 24 Blood pressure diastolic 80 mm Hg 024 Heart Rate 84 /min 01/27/2024 Oximetry 99 % 01/27/2024 Temperature 98.1 degrees Fahrenheit 01/27/20 24 Respiratory Rate 16 /min 01/27/2024 Encounters Encounter Location Date Provider Diagnosis [address] [place] [address] 01/27/2024 Hallie Lylaharjinder Major depression F32.9 and MARIANA (generalized anxiety [...] disorder) (ICD-10 - F41.1) Plan Of Treatment Medication Medication Name Sig Start Date Stop Date Notes FLUoxetine HCl 10 MG 1 capsule Orally On ce a day for 30 days hydrOXYzine Pamoate 25 MG 1 capsule ever y 6 hours as needed for anxiety Orally Every 6 hours for 30 days traZODone HCl 50 MG 1 tablet at bedtime Orally Once a day Treatment Notes Assessment Notes Major depression risk & benefits disc ussed. Lower Prozac 10 mg daily, Vistaril 25 mg PRN for anxiety, Continue Trazodone 50 mg HS PRN . Side effects discussed. Supportive treatment provided. Refer to counseling. Next Appt Details Follow Up: 4 Weeks, Reason: Progress Notes * Ramon KULKARNIDOB:[birth year] (43 yo F)Acc No.[id number]:01/27/2024 Patient: Lisandra TUCKERRamon Provider: Mari Byrne :1980 A ge:43 Y S ex:Female Date:01/27/2024 Address:[address] [facility] Check In:11:14 AM [facility] Subjective: * Chief Complaints: * H ospital F/U * HPI: D epression Screening: PHQ-9 L ittle interest or pleasure in doing things N early every day, F eeling down, depressed, or hopeless S everal days, T rouble falling or staying asleep, or sleeping too much S everal days, F eeling tired or having little energy Nearly every day, P oor appetite or overeating S everal days, F eeling bad about yourself or that you are a failure, or have let yourself or your family down M ore than half the days, T rouble concentrating on things, such as reading the newspaper or watching television S everal , M oving or speaking so slowly that other people could have noticed; or the opposite, being so fidgety or restless that you have been moving around a lot more than usual S everal days, T houghts that you would be better off or of hurting yourself in some way N ot at all, T otal Score 1 3, I nterpretation M oderate Depression. I ntervention F ollow-Up for Depression N o Referral necessary, patient involved in behavioral health treatment. S creening: [place] Suicide Severity Rating Scale (LF) D o you want to initiate with S creener form, 1 . Wish to be : Have you wished you were or wished you could go to sleep and not wake up? N o, 2 . Suicidal Thoughts: Have you actually had any thoughts of killing yourself? N o, 6 . Suicide Behaviour: Have you ever done anything,started to do anything, or prepared to end your life? N o, I nterpretation: L ow Risk. I nterim History: Follow up from inpatient. Was admitted to [facility] due to suicidal thoughts. Released on Prozac. Reports her depression is better but still has significant. Still has lack of motivation. But feels more calm. Feels tired on medicine. Has nausea not every day. Denies SI/HI. Denies hallucination or delusions. Denies manic or hypo manic symptoms. Sleep is alright but disturbed. Reports feels shaky. Reports has anxiety. 44 years old had stroke in 2021. They have been together for 16 years and for 13 years. Has no other inpatient history. No other history of suicidal attempt.Pt lost her dog before the admission to psych. Pt has no medical issues except h/o Fibroid surgery, infertility. Started working again after inpatient. 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 Went through fertility treatment. Had 6 miscarriages and one abortin in 2008. Her last miscarriage was in 2020. unable to get pregnnt since 2015. Then her fibroid removed in 2020. Pt has no history of abuse. No history of alcohol or drug addiction. Pt has some college. MSE: Alert, Ox4,mood alright, affect is appropriateto mood. Denies SI/HI. Denies hallucination or delusions. Denies SI/HI. Denies hallucination or delusions. Insight & judgement fair. Intelligence is average. * Medical History: * Surgical History: U terine Fibroid Removal 2000Abortion 2009D&C 2013, 2015, 2020 2009Fertility treatments from 1643-3468 * Hospitalization/Major Diagno stic Procedure: D enies Past Hospitalization * Family History: F ather: alive. M other: alive. 1 brother(s) , 2 sister(s) . . Dad had Diabetes . 1 sister has Diabetes. * Social History: P kelvin Social History: L iving Arrangement L iving Arrangement: I ndependent Living lives with , I s this a supportive environment? Y es. A lcohol Use A lcohol Use Frequency: M onthly or less. I llicit Substance Usage I llicit Substance Usage: N o. 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 T obacco Use - do not use T obacco Use: S tatus Reviewed with Patient Denies smoking. * Medications: T akingtraZODone HCl 100 MG Tablet 1 tablet at bedtime Orally Once a day hydrOXYzine Pamoate 50 MG Capsule 1 capsule every 6 hours as needed for anxiety Orally Every 6 hours FLUoxetine HCl 20 MG Capsule 1 capsule Orally Once a day Medication List reviewed and reconciled with the patientTaking traZODone HCl 100 MG Tablet 1 tablet at bedtime Orally Once a day Taking hydrOXYzine Pamoate 50 MG Capsule 1 capsule every 6 hours as needed for anxiety Orally Every 6 hours Taking FLUoxetine HCl 20 MG Capsule 1 capsule Orally Once a day Medication List reviewed and reconciled with the patient * Allergies: N .K.D.A.no[Allergies Verified] Objective: * Vitals: I nitials: ws, Wt:237, Ht: 66, BMI:38.25, BP:128/80, HR:84, Oxygen sat %:99, Temp:98.1, RR:16, LMP: 01/19/2024, Pain scale:0. Assessment: * Assessment: 1. M ajor depression - F32.9 (Primary) 2 . G AD (generalized anxiety disorder) - F41.1 Plan: * Treatment: * Procedure Codes: * Follow Up: 4 Weeks * * [facility] Sign off status: Completed true * Provider: Mari Byrne Date: 1 03/29/2023 Generated for Naveed oneill/Rocio/Kyara on: 0 04/30/2024 12:13 PM [facility] History and Physical Notes * HPI (History of Present Illness) Category Sub-Category Detail Notes Category Not es Interim History Follow up from inpatient. Was admitted to [facility] due to suicidal thoughts. Released on Prozac. Reports her depression is better but still has significant. Still has lack of motivation. But feels more calm. Feels tired on medicine. Has nausea not every day. Denies SI/HI. Denies hallucination or delusions. Denies manic or hypo manic symptoms. Sleep is alright but disturbed. Reports feels shaky. Reports has anxiety. 44 years old had stroke in 2021. They have been together for 16 years and for 13 years. Has no other inpatient history. No other history of suicidal attempt.Pt lost her dog before the admission to psych. Pt has no medical issues except h/o Fibroid surgery, infertility. Started working again after inpatient. 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 Went through fertility treatment. Had 6 miscarriages and one abortin in 2008. Her last miscarriage was in 2020. unable to get pregnnt since 2015. Then her fibroid removed in 2020. Pt has no history of abuse. No history of alcohol or drug addiction. Pt has some college. MSE: Alert, Ox4,mood alright, affect is appropriateto mood. Denies SI/HI. Denies hallucination or delusions. Denies SI/HI. Denies hallucination or delusions. Insight & judgement fair. Intelligence is average. Depression Screening PHQ-9 Little interest or pleasure in doing things: Nearly every day Feeling down, depressed, or hopeless: Se veral days Trouble falling or staying asleep, or sl eeping too much: Several days Feeling tired or having little energy: N early every day Poor appetite or overeating: Several day s Feeling bad about yourself o r that you are a failure, or have let yourself or your family down: More than half the days Trouble concentrating on thi ngs, such as reading the newspaper or watching television: Several days Moving or speaking so slowly that other people could have noticed; or the opposite, being so fidgety or restless that you have been moving around a lot more than usual: Several days Thoughts that you would be b sole off or of hurting yourself in some way: Not at all Total Score: 13 Interpretation: Moderate Depression Intervention Follow-Up for [place]: No Referral necessary, patient involved in behavioral health treatment Screening [place] Suicide Sev erity Rating Scale (LF) Do you want to initiate with: Screener form 1. Wish to be : Have you wished you were or wished you could go to sleep and not wake up?: No 2. Suicidal Thoughts: Have you actually had any thoughts of killing yourself?: No 6. Suicide Behavior Question: Have you ever done anything,started to do anything, or prepared to end your life?: No Interpretation:: Low Risk
--- OUTSIDE RECORDS SUMMARY | 2024-04-30 13:26 | XMS_ITS | Clinical Summary ---
Author Organization [facility] Address [facility] [place] [address] Care Team Providers Care Tubing Mill Operator Name Role Phone Melvin Tineo MD Primary Care Provider [phone] Allergies No known active allergies Medications naproxen (NAPROSYN) 500 MG tablet Take 1 tablet (500 mg total) by mouth 2 (two) times daily with meals. 30 tablet Active Additional Information Patient not taking.Reported on 11/05/2023 Social History Tobacco Use Types Packs/Day Years Used Date Smoking Tobacco: Never Alcohol Use Standard Drinks/Week Comments Not Currently 0 (1 standard drink = 0.6 oz pur e alcohol) PHQ-2 Answer Date Recorded Patient Health Questionnaire-2 Score 0 11/05/2023 Comments Unknown Sex and Gender Information Value Date Recorded Sex Assigned at Not on file Legal Sex Female 8:19 PM CDT Gender Identity Not on file Sexual Orientation Not on file Last Filed Vital Signs Vital Sign Reading Time Taken Comments Blood Pressure 136/78 11/05/2023 3:29 PM CDT Pulse 79 11/05/2023 3:29 PM CDT Temperature 36.2 C (97.2 F) 11/05/2023 3:29 PM CDT Respiratory Rate 16 05/05/2023 7:53 PM CDT Oxygen Saturation 100% 11/05/2023 3:29 PM CDT Inhaled Oxygen Concentration - - Weight 101.2 kg (223 lb) 11/05/2023 3:29 PM CDT Height 167.6 cm (5' 6 ) 11/05/2023 3:29 PM CDT Body Mass Index 35.99 11/05/2023 3:29 PM CDT Plan of Treatment Upcoming Encounters Date Type Department Care Team (Late st Contact Info) Description 06/22/2024 11:40 AM CDT Appointment [facility] [address] [place] [address] Melvin Tineo MD [address] [place] [address] Health Maintenance Due Date Last Done Comments Annual Physical 12/22/1983 Hepatitis C 1998 Hepatitis B Vaccines (1 of 3 - 19+ 3-dose series) 12/22/1999 Cervical Cancer Screening Pap with HPV Testing (Age 30 to 64) Every 5 Years 2010 Cervical Cancer Screening Pap Smear (Age 30 to 64) Every 3 Years 08/06/2018 08/07/2015 Cervical Cancer Screening with HPV 08/06/2018 COVID-19 Vaccine ( season) 2023 Influenza Adult (#1) 2023 04/17/2020, 12/13/2019, 08/25/2015 PHQ-2 (Physician [place]) 02/25/2024 11/05/2023 Mammogram Screening 06/18/2025 06/19/2023 DTaP, Tdap and Td Vaccines (5 - Td or Tdap) 11/27/2030 11/27/2020, 05/15/2020, 04/17/2020, Additional history exists Pneumococcal Vaccine: Pediatrics (0 to 5 Years) and At-Risk Patients (6 to 64 Years) Aged Out 05/28/2021, 11/27/2020, 05/15/2020, Additional history exists No longer eligible based on patient's age to complete this topic HPV Vaccines Aged Out No longer eligi ble based on patient's age to complete this topic Meningococcal B Vaccine Aged Out No l onger eligible based on patient's age to complete this topic Meningococcal Vaccine Aged Out No brian chris eligible based on patient's age to complete this topic RSV Immunizations Under 20 Months Aged Out No longer eligible based on patient's age to complete this topic Insurance [facility] Care Teams Tubing Mill Operator Relationship Specialty Start Date End Date Melvin Tineo MD [address] [facility] [address] [place] [address] PCP - General INTERNAL MEDICINE 04/17/20
--- OUTSIDE RECORDS SUMMARY | 2024-04-30 13:26 | XMS_ITS | CONTINUITY OF CARE DOCUMENT ---
Author Name alta holm Address Unknown Organization [facility] Address [address] [place] [address] [address] [place] [address] Phone [phone] Care Team Providers Care Chief Nursing Officer Name Role Phone Fam Stephens MD Unavailable Fam Stephens MD Unavailable [phone] INSURANCE PROVIDERS Payer name Policy type / Coverage type Ruthy red democrat ID [id number] insurance [employer] [id number]
--- OUTSIDE RECORDS SUMMARY | 2024-04-30 13:26 | XMS_ITS | Clinical Summary ---
Author Organization [facility] Address [address] [place] [address] Care Team Providers Care Compressor Mechanic Bus Name Role Phone Melvin Tineo MD Primary Care Provider [phone] Source Comments [facility],non-owned Affiliates and Associated Physician Practices is amultiple site organization consisting of ambulatory clinics and hospital sitesin [place], [place], [place] and [place]. This disclosure is being madepursuant to the Care Everywhere program and may not contain all information available regarding this patient. Last updated 17.[facility] Allergies No known active allergies Medications * [...] 12/25/2020 5:50 AM CDT Plan of Treatment Health Maintenance Due Date Last Done Comments LIPID TESTING 1980 MAMMOGRAM 1980 PAP SMEAR 1980 HIV SCREENING 12/22/1995 HEPATITIS C SCREENING 12/17/1998 DTAP/TDAP/TD VACCINES (1 - Tdap) 12/22/1999 HEPATITIS B VACCINE (1 of 3 - 19+ 3-dose series) 12/22/1999 COVID-19 VACCINE (1 - 2023-2 5 season) 2023 INFLUENZA VACCINE (#1) 2023 DEPRESSION SCREENING 02/25/2024 ZOSTER VACCINE (1 of 2) 2030 HIB VACCINE Aged Out No longer eligi ble based on patient's age to complete this topic HPV VACCINE Aged Out No longer eligi ble based on patient's age to complete this topic MENINGOCOCCAL (Group B) VACCINE Aged Out No longer eligible based on patient's age to complete this topic MENINGOCOCCAL VACCINE Aged Out No brian chris eligible based on patient's age to complete this topic PNEUMOCOCCAL VACCINE Aged Out No long er eligible based on patient's age to complete this topic Care Teams Compressor Mechanic Bus Relationship Specialty Start Date End Date Melvin Tineo MD [address] [place] [address] [address] [place] [address] PCP - General Internal Medicine 03/24/20
--- OUTSIDE RECORDS SUMMARY | 2024-04-30 13:26 | XMS_ITS | Patient Health Summary ---
Author Organization [facility] Address [address] [place] [address] Care Team Providers Care Donations Attendant Name Role Phone Melvin Tineo MD Primary Care Provider [phone] Note from [facility],non-owned Affiliates and Associated Physician Practices is amultiple site organization consisting of ambulatory clinics and hospital sitesin [place], [place], [place] and [place]. This disclosure is being madepursuant to the Care Everywhere program and may not contain all information available regarding this patient. Last updated 17.[facility] Allergies No known active allergies Medications * Be aware that medications may not be up to date on this document. Alwaysverify current medications with the patient. * acetaminophen (TYLENOL) 500 MG tablet(Started 09/29/2019) Take 500-1,000 mg by mouth * albuterol HFA (PROVENTIL;VENTOLIN;PROAIR) 108 (90 Base) MCG/ACT inhaler (Started 03/11/2020) INHALE 2 PUFFS BY MOUTH EVERY 4 HOURS NEEDED FOR DIFFICULT BREATHING * Cholecalciferol 50 MCG (1999 UT) * FEROSUL 325 (65 Fe) MG tablet(Started 12/05/2019) TK 1 T PO QD. * traMADol (ULTRAM) 50 MG tablet(Started 12/13/2019) TAKE 1 TABLET BY MOUTH UP TO TWICE DAILY NEEDED * acetaminophen (TYLENOL) 325 MG tablet(Started 03/30/2020) Take 2 (two) tablets by mouth every 4 hours as needed for Fever or Pain Maximum allowable Acetaminophen amount = 4 Grams (4000 mg) / 24 hours. 1 refill by 03/30/2021 * oxyCODONE-acetaminophen (PERCOCET) 5-325 MG tablet(Started 03/30/2020) Take 1 (one) tablet by mouth every 6 hours as needed for Pain * ibuprofen (MOTRIN) 600 MG tablet(Started 03/30/2020) Take 1 (one) tablet by mouth every 6 hours as needed for Pain 1 refill by 03/30/2021 * docusate sodium (COLACE) 100 MG capsule(Started 03/30/2020) Take 1 (one) capsule by mouth 2 times daily * ondansetron, disintegrating, (ZOFRAN ODT) 4 MG tablet(Started 08/08/2020) Take 1 (one) tablet by mouth every 6 hours as needed for Nausea/Vomiting Allow tablet to dissolve on the tongue * ibuprofen (MOTRIN) 600 MG tablet(Started 12/25/2020) Take 1 (one) tablet by mouth every 6 hours as needed for Pain * ondansetron, disintegrating, (ZOFRAN ODT) 4 MG tablet(Started 12/25/2020) Take 1 (one) tablet by mouth every 6 hours as needed for Nausea/Vomiting Allow tablet to dissolve on the tongue Active Problems Problem Noted Date Diagnosed Date Diagnosis unknown 03/30/2020 Immunizations * Rho D Immune Globulin(Given 08/11/2014) Social History Tobacco Use Types Packs/Day Years [...] Mass Index 34.7 12/25/2020 5:50 AM CDT Procedures * CT ABDOMEN PELVIS W CONTRAST(Performed 12/25/2020) Performed for RUQ pain * COMPREHENSIVE METABOLIC PANEL(Performed 12/25/2020) * LIPASE BLOOD(Performed 12/25/2020) * CBC W AUTO DIFFERENTIAL(Performed 12/25/2020) * US ABDOMEN LIMITED(Performed 12/25/2020) Performed for RUQ pain * HCG URINE QUALITATIVE(Performed 12/25/2020) * URINALYSIS W/MICROSCOPIC NO CULTURE(Performed 12/25/2020) * CULTURE STREP GROUP A(Performed 08/08/2020) * STREP A SCREEN DIRECT W RFLX STREP A CULTURE(Performed 08/08/2020) * SARS-COV-2 (COVID-19)+INFLU A+B PCR RAPID(Performed 08/08/2020) * HCG URINE QUALITATIVE(Performed 08/08/2020) * URINALYSIS W/MICROSCOPIC NO CULTURE(Performed 08/08/2020) * XR CHEST 2VW(Performed 08/08/2020) Performed for Cough * MONONUCLEOSIS SCREEN(Performed 08/08/2020) * TSH(Performed 08/08/2020) * COMPREHENSIVE METABOLIC PANEL(Performed 08/08/2020) * CBC W AUTO DIFFERENTIAL(Performed 08/08/2020) * APHERESIS/TRANSFUSION ORDER(Performed 04/03/2020) * PATHOLOGY TISSUE EXAM (STL)(Performed 03/30/2020) Performed for Diagnosis unknown * ENDOTRACHEAL TUBE NOTE(Performed 03/30/2020) * ROBOTIC ASSISTED MYOMECTOMY(Performed 03/30/2020) * HCG URINE QUALITATIVE(Performed 03/30/2020) Performed for Preop examination * SARS-COV-2 (COVID-19) IN HOUSE(Performed 03/27/2020) Performed for Preop examination * SARS-COV2 (COVID-19) PANEL (STL)(Performed 03/27/2020) Performed for Preop examination * TYPE + SCREEN PANEL(Performed 03/24/2020) Performed for Preop examination * COMPREHENSIVE METABOLIC PANEL(Performed 03/24/2020) Performed for Preop examination * CBC W AUTO DIFFERENTIAL(Performed 03/24/2020) Performed for Preop examination * TYPE + SCREEN PANEL(Performed 08/11/2014) * HCG BETA BLOOD QUANTITATIVE(Performed 08/11/2014) * BASIC METABOLIC PANEL (CALCIUM TOTAL)(Performed 08/11/2014) * CBC W AUTO DIFFERENTIAL(Performed 08/11/2014) * US OB TRANSVAGINAL DOPPLER(Performed 08/11/2014) Performed for Vagina bleeding * HCG URINE QUALITATIVE - POINT OF CARE(Performed 08/11/2014) * URINALYSIS REFLEX MICROSCOPIC REFLEX CULTURE(Performed 08/11/2014) Results * CT ABDOMEN PELVIS W CONTRAST (12/25/2020 5:47 PM CDT) Anatomical Region Laterality Modality Abdomen, Pelvis Computed Tomogra phy 12/25/2020 6:04 PM CDT Impressions 12/26/2020 8:50 AM CDT Impression: 1.The uterus is retroflexed with multiple fibroids. Small amount of fluid is present in the pelvis, which measures higher than simple fluid density, may represent cyst rupture. Pelvic ultrasound may be obtained if clinically indicated. 2.No other acute findings. Report drafted by Angel Diaz (resident) Dr. Tim Liu M.D. have personally reviewed and interpreted this examination/study. This report was electronically signed by Tim FLETCHER M.D. on 12/26/2020 8:50 AM . Narrative 12/26/2020 8:50 AM CDT Procedure Information DATE: 12/25/2020 5:47 PM EXAMINATION: Computed tomography (CT) of the abdomen and pelvis with contrast TECHNIQUE: CT of the abdomen and pelvis was performed following the uneventful administration of 100 mL of Isovue 370 intravenous contrast according to standard protocol. Clinical Information HISTORY: R10.11: RUQ pain COMPARISON: None. Findings Lower Chest: Normal. Hepatobiliary: The liver and gallbladder are normal. Pancreas: Normal. Spleen: Normal. Kidneys: Normal. Adrenals: Normal. Retroperitoneum/peritoneum: No significant mesenteric or retroperitoneal lymphadenopathy. No free air or free fluid is present. Gastrointestinal: The stomach and visualized loops of bowel are unremarkable. The appendix is normal. Pelvic Structures: The uterus appears mildly enlarged with areas of hyperenhancement likely representing multiple fibroids. The uterus is retroflexed. Small amount of pelvic free fluid is present which measures approximately 30 Hounsfield units, higher than expected for simple fluid. Vasculature: Normal. Bones: The visible osseous structures are intact. Soft tissues: Normal. Procedure Note Nury Fletcher MD - 12/26/2020 Procedure Information DATE: 12/25/2020 5:47 PM EXAMINATION: Computed tomography (CT) of the abdomen and pelvis with contrast TECHNIQUE: CT of the abdomen and pelvis was performed following the uneventful administration of 100 mL of Isovue 370 intravenous contrast according to standard protocol. Clinical Information HISTORY: R10.11: RUQ pain COMPARISON: None. Findings Lower Chest: Normal. Hepatobiliary: The liver and gallbladder are normal. Pancreas: Normal. Spleen: Normal. Kidneys: Normal. Adrenals: Normal. Retroperitoneum/peritoneum: No significant mesenteric or retroperitoneal lymphadenopathy. No freeair or free fluid is present. Gastrointestinal: The stomach and visualized loops of bowel are unremarkable. The appendix is normal. Pelvic Structures: The uterus appears mildly enlarged with areas of hyperenhancement likely representing multiple fibroids. The uterus is retroflexed. Small amountof pelvic free fluid is present which measures approximately 30 Hounsfield units, higher than expected for simple fluid. Vasculature: Normal. Bones: The visible osseous structures are intact. Soft tissues: Normal. Impression: 1.The uterus is retroflexed with multiple fibroids. Small amount offluid is present in the pelvis, which measures higher than simple fluiddensity, may represent cyst rupture. Pelvic ultrasound may be obtained if clinically indicated. 2.No other acute findings. Report drafted by Angel Diaz (resident) Dr. Tim Liu M.D. have personally reviewed and interpretedthis examination/study. This report was electronically signed by Tim FLETCHER M.D. on 12/26/2020 8:50 AM . Anthony Hernández PA-C CT ORDERABLES * (ABNORMAL) COMPREHENSIVE METABOLIC PANEL (12/25/2020 4:10 PM CDT) Only the most recent of3 resultswithin the time period is included. BUN 12 7 - 26 mg/dL 12/25/2020 4:45 PM CDT [facility] Creatinine 0.77 0.56 - 0.96 mg/dL 12/25/2020 4:45 PM [facility] Sodium 141 136 - 145 mmol/L 12/25/2020 4:45 PM [facility] Potassium 3.6 3.5 - 4.5 mmol/L 12/25/2020 4:45 PM [facility] Chloride 111(H) 98 - 107 mmol/L 12/25/2020 4:45 PM [facility] CO2 21(L) 22 - 29 mmol/L 12/25/2020 4:45 PM [facility] Glucose 92 70 - 115 mg/dL 12/25/2020 4:45 PM [facility] Calcium 9.0 8.4 - 10.2 mg/dL 12/25/2020 4:45 PM [facility] Protein Total 7.6 6.0 - 8.3 g/dL 12/25/2020 4:45 PM [facility] Albumin 3.5 3.4 - 5.0 g/dL 12/25/2020 4:45 PM [facility] Bilirubin Total 0.3 0.2 - 1.2 mg/dL 12/25/2020 4:45 PM [facility] Alkaline Phosphatase 61 40 - 150 U/L 12/25/2020 4:45 PM [facility] ALT 8 5 - 55 U/L 12/25/2020 4:45 PM [facility] AST 16 5 - 34 U/L 12/25/2020 4:45 PM [facility] Anion Gap 13 8 - 18 12/25/2020 4:45 PM [facility] BUN/Creatinine Ratio 16 7 - 23 12/25/2020 4:45 PM [facility] Osmolality Calculated 291 270 - 300 mOsm/kg 12/25/2020 4:45 PM [facility] Albumin/Globulin Ratio 0.9(L) 1.1 - 2.3 12/25/2020 4:45 PM [facility] eGFR by CKD-EPI >90 >=90 mL/min/1.7 3 m2 12/25/2020 4:45 PM [facility] Blood BLOOD SPECIMEN / Unknown Venipuncture / Unknown 12/25/2020 4:10 PM CDT 12/25/2020 4:19 PM CDT Frederic Sears MD LAB - CHEMISTRY [facility] Organization Address City/State/ZIP Co de Phone Number [facility] [address] [place] [address], [facility] [phone] * (ABNORMAL) CBC W AUTO DIFFERENTIAL (12/25/2020 1:34 PM CDT) Only the most recent of4 resultswithin the time period is included. WBC 5.3 3.5 - 10.5 10 3/uL 12/25/2020 1:43 PM [facility] RBC 3.82 3.80 - 5.20 10 6/uL 12/25/2020 1:43 PM [facility] Hemoglobin 11.2(L) 12.0 - 15.6 g/dL 12/25/2020 1:43 PM [facility] Hematocrit 33.4(L) 35.0 - 45.0 % 12/25/2020 1:43 PM [facility] MCV 87.4 80.7 - 98.3 fL 12/25/2020 1:43 PM [facility] MCH 29.3 26.7 - 34.0 pg 12/25/2020 1:43 PM [facility] MCHC 33.5 30.8 - 35.9 g/dL 12/25/2020 1:43 PM [facility] Platelet Count 243 150 - 400 10 3/uL 12/25/2020 1:43 PM [facility] RDW-SD 41.1 36.0 - 50.0 fL 12/25/2020 1:43 PM [facility] RDW-CV 12.9 11.2 - 14.8 % 12/25/2020 1:43 PM [facility] MPV 9.6 9.4 - 12.9 fL 12/25/2020 1:43 PM [facility] nRBC Absolute 0.00 0 10 3/uL 12/25/2020 1:43 PM [facility] nRBC Auto 0.0 0 /100 WBC 12/25/2020 1:43 PM [facility] Neutrophils % 45.5 35.0 - 70.0 % 12/25/2020 1:43 PM [facility] Lymphocytes % 41.9 20.0 - 43.0 % 12/25/2020 1:43 PM CDT [facility] Monocytes % 10.3 5.0 - 13.0 % 12/25/2020 1:43 PM T [facility] Eosinophils % 1.9 0.0 - 6.0 % 12/25/2020 1:43 PM T [facility] Basophil % 0.2 0.0 - 2.0 % 12/25/2020 1:43 PM T [facility] Neutrophils Absolute 2.4 1.6 - 7.0 10 3/uL 12/25/2020 1:43 PM CDT [facility] Lymphocyte Absolute 2.2 1.1 - 3.9 10 3/uL 12/25/2020 1:43 PM T [facility] Monocytes Absolute 0.54 0.26 - 1.07 10 3/uL 12/25/2020 1:43 PM T [facility] Eosinophils Absolute 0.10 0.00 - 0.47 10 3/uL 12/25/2020 1:43 PM T [facility] Basophils Absolute 0.01 0.00 - 0.08 10 3/uL 12/25/2020 1:43 PM CDT [facility] Immature Granulocytes % 0.2 0.0 - 1.0 % 12/25/2020 1:43 PM T [facility] Immature Granulocytes Absolute 0.01 12/25/2020 1:43 PM [facility] Blood BLOOD SPECIMEN / Unknown Venipuncture / Unknown 12/25/2020 1:34 PM CDT 12/25/2020 1:39 PM CDT Frederic Sears MD LAB - HEMATOLOGY ORD ERABLES [facility] [address] [place] [address], [facility] [phone] * LIPASE BLOOD (12/25/2020 1:34 PM CDT) Lipase 22 8 - 78 U/L 12/25/2020 2:09 PM CDT [facility] Blood BLOOD SPECIMEN / Unknown Venipuncture / Unknown 12/25/2020 1:34 PM CDT 12/25/2020 1:39 PM CDT Frederic Sears MD LAB - CHEMISTRY [facility] Performing Organization Address City/State/[facility] Co de Phone Number [facility] [address] [place] [address], [facility] [phone] * US ABDOMEN LIMITED (12/25/2020 8:15 AM CDT) Anatomical Region Laterality Modality Abdomen Ultrasound 12/25/2020 8:14 AM CDT Impressions 12/25/2020 9:43 AM CDT IMPRESSION: 1.No discrete hepatic lesion or intrahepatic biliary ductal dilatation. 2.No evidence of cholelithiasis or cholecystitis. 3.Partially visualized nonspecific fluid-filled loops of bowel. Dictated by Eduardo Gonzalez DO (residential counselor). I, Dr. BROOKS PARIS MD, FRCR have personally reviewed and interpreted this examination/study. This report was electronically signed by BROOKS PARIS MD, FRCR on 12/25/2020 9:43 AM . Narrative 12/25/2020 9:43 AM CDT EXAMINATION: Limited right upper quadrant abdominal sonogram HISTORY: R10.11: RUQ pain COMPARISON: No prior study is available for comparison at the time of this dictation. FINDINGS: The liver is normal in echotexture and echogenicity with a smooth surface contour. No discrete hepatic mass or intrahepatic biliary dilatation is seen. Color Doppler evaluation demonstrates patency of the hepatic and portal veins. No gallstones or pericholecystic fluid is seen. The gallbladder wall is normal in thickness, measuring 1.9 mm. Sonographic Bailey's sign is negative. The common bile duct is nondilated, measuring 3.7 mm. The right kidney measures 10.2 cm in length. Limited views of the right kidney reveal no evidence of nephrolithiasis or hydronephrosis. The spleen measures 8.7 cm in length. The visible pancreas is normal in echogenicity. No ascites is present. Partially visualized fluid-filled loops of bowel inferior to the right hepatic lobe. Procedure Note Brooks Paris MD - 12/25/2020 EXAMINATION: Limited right upper quadrant abdominal sonogram HISTORY: R10.11: RUQ pain COMPARISON: No prior study is available for comparison at the time ofthis dictation. FINDINGS: The liver is normal in echotexture and echogenicity with a smoothsurface contour. No discrete hepatic mass or intrahepatic biliary dilatation is seen. Color Doppler evaluation demonstrates patency of the hepatic and portal veins. No gallstones or pericholecystic fluid is seen. The gallbladder wall is normal in thickness, measuring 1.9 mm. Sonographic Bailey's sign is negative. The common bile duct is nondilated, measuring 3.7 mm. The right kidney measures 10.2 cm in length. Limited views of the right kidney reveal no evidence of nephrolithiasis or hydronephrosis. Thespleen measures 8.7 cm in length. The visible pancreas is normal inechogenicity. No ascites is present. Partially visualized fluid-filled loops of bowel inferior to the right hepatic lobe. IMPRESSION: 1.No discrete hepatic lesion or intrahepatic biliary ductal dilatation. 2.No evidence of cholelithiasis or cholecystitis. 3.Partially visualized nonspecific fluid-filled loops of bowel. Dictated by Eduardo Gonzalez DO (residential counselor). I, Dr. BROOKS PARIS MD, [facility] have personally reviewedand interpreted this examination/study. This report was electronically signed by BROOKS PARIS MD, FRCR on 12/25/2020 9:43 AM . Frederic Sears MD ORDERABLES * (ABNORMAL) URINALYSIS W/MICROSCOPIC NO CULTURE (12/25/2020 6:04 AM CDT) Only the most recent of2 resultswithin the time period is included. Color UA Yellow Straw, Yellow 12/25/2020 6:37 AM CDT [facility] Clarity UA Slt Cloudy(A) Clear 12/25/2020 6:37 AM [facility] Specific [place] UA 1.027 1.005 - 1.030 12/25/2020 6:37 AM [facility] pH UA 5.0 5.0 - 8.0 pH 12/25/2020 6:37 AM [facility] Protein UA 1+(A) Negative 12/25/2020 6:37 AM [facility] Glucose UA Negative Negative 12/25/2020 6:37 AM [facility] Ketone UA Negative Negative 12/25/2020 6:37 AM [facility] Bilirubin UA Negative Negative 12/25/2020 6:37 AM [facility] Blood UA 3+(A) Negative 12/25/2020 6:37 AM [facility] Nitrite UA Negative Negative 12/25/2020 6:37 AM [facility] Leukocyte Esterase Negative Negative 12/25/2020 6:37 AM [facility] Urobilinogen UA Negative Negative mg/dL 12/25/2020 6:37 AM [facility] RBC UA >100(A) None Seen, 0-2, 3-5 /HPF 12/25/2020 6:37 AM [facility] WBC UA 0-5 None Seen, 0-5 /HPF 12/25/2020 6:37 AM [facility] Squamous Epithelial Cells UA 0-2 None Seen, 0-2, 3-5 /HPF 12/25/2020 6:37 AM [facility] Mucus UA 1+ /LPF 12/25/2020 6:37 AM [facility] Urine URINE SPECIMEN OBTAINED BY CLEAN CATCH PROCEDURE / Unknown Collection / Unknown 12/25/2020 6:04 AM CDT 12/25/2020 6:17 AM [facility] - 12/25/2020 6:37 AM [facility] Frederic Sears MD LAB - URINALYSIS ORD ERABLES [facility] [address] [place] [address], [facility] [phone] * HCG URINE QUALITATIVE (12/25/2020 6:04 AM CDT) Only the most recent of3 resultswithin the time period is included. Test Urine Negative Negative 12/25/2020 7:06 AM CDT [facility] Urine URINE / Unknown Collection / Unknown 12/25/2020 6:04 AM CDT 12/25/2020 6:17 AM CDT Frederic Sears MD LAB - URINALYSIS ORD ERABLES Performing Organization Address [facility]/ZIP Co de Phone Number [address] [address], [facility] [phone] * STREP A SCREEN DIRECT W RFLX STREP A CULTURE (08/08/2020 11:57 AM CDT) [facility] Rapid Strep A Screen Negative Negative 08/08/2020 12:19 PM CDT [facility] Microbiology ENTIRE THROAT (SURFACE REGION OF NECK) / Unknown Collection / Unknown 08/08/2020 11:57 AM CDT 08/08/2020 11:57 AM CDT Narrative [facility] - 08/08/2020 12:19 PM CDT Rapid test for Group A Beta Streptococcus is NEGATIVE. A Negative, Direct Test for Group A Streptococcus will be followed with a confirmatory Throat Culture when 2 swabs have been submitted. Matthew Mays MD LAB - MICROBIOLOGY O RDERABLES Performing Organization Address City/[facility]/ZIP Co de Phone Number [address] [address], [facility] [phone] * CULTURE STREP GROUP A (08/08/2020 11:57 AM CDT) Pathologist [facility] Culture Negative for beta-hemolytic Streptococcus Group A IRMA 08/10/2020 6:54 AM CDT [facility] MICROBIOLOG[facility] Microbiology ENTIRE THROAT (SURFACE REGION OF NECK) / Unknown Collection / Unknown 08/08/2020 11:57 AM CDT 08/08/2020 11:57 AM CDT Matthew Mays MD LAB - MICROBIOLOGY O RDERABLES [facility] MICROBIOLOGY [address] [place] [address], [facility] [phone] * SARS-COV-2 (COVID-19)+INFLU A+B PCR RAPID (08/08/2020 11:06 AM CDT) COVID-19 PCR Not detected Not detected 08/09/19 12:20 PM CDT [facility] Influenza A Rapid GARRY Not Detected Not Detected 08/08/2020 12:20 PM CDT [facility] Influenza B GARRY Rapid Not Detected Not Detected 08/08/2020 12:20 PM CDT [facility] Microbiology SPECIMEN FROM NASOPHARYNGEAL STRUCTURE / Unknown Collection / Unknown 08/08/2020 11:06 AM CDT 08/08/2020 11:31 AM CDT Narrative [facility] - 08/08/2020 12:20 PM CDT Influenza assay performed by Nucleic Acid Amplification. Results do not exclude the possibility of a mixed viral infection. NOTE: Detecting and identifying specific viral nucleic acids from individuals exhibiting signs and symptoms of respiratory infection aids in the diagnosis of respiratory infection, if used in conjunction with other clinical and laboratory findings. The results of this test should not be used as the sole basis for diagnosis, treatment, or patient management decisions. This nucleic acid amplification assay performance was validated by [facility]. This test has been authorized by the Food and Drug administration (FDA)under an Emergency Use Authorization (EUA). This test has been validated in accordance with the FDA's guidance document Policy for Diagnostic Testing in Laboratories Certified to perform High Complexity Testing under CLIA prior to Emergency Use Authorization for Coronavirus Disease-2019 during the Public Health Emergency issued on April 24, 2019. FDA independent review of this validation is pending. This test is only authorized for the duration of time the declaration that circumstances exist justifying the authorization of emergency use of in vitro diagnostic tests for detection of SARS-CoV-2 virus and/or diagnosis of COVID-19 infection under section 564(b)(1) of the Act, 21 U.S.C 360bbb-3 (b)(1), unless the authorization is terminated or revoked sooner. Fact Sheets for this EUA assay are available upon request. Radha Rosales APRN-PUBLIC HEALTH PHYSICIAN LAB - MICROBIO LOGY ORDERABLES [place] [id number] [place] [address], [facility] [phone] * XR CHEST 2VW (08/08/2020 10:31 AM CDT) Anatomical Region Laterality Modality Chest Radiographic Kerri ging 08/08/2020 10:2 9 AM CDT Impressions 08/08/2020 11:00 AM CDT FINDINGS/IMPRESSION: There is no focal consolidation, pleural effusion, or pneumothorax. The cardiomediastinal silhouette is normal. The visible bony thorax is intact. Dictated by Hernando Coelho MD (residential counselor). Dr. ANITA Liu M.D. have personally reviewed and interpreted this examination/study. This report was electronically signed by ANITA CHU M.D. on 08/08/2020 11:00 AM . Narrative 08/08/2020 11:00 AM CDT EXAMINATION: XR CHEST 2VW HISTORY: R05: Cough COMPARISON: No prior study is available for comparison. Procedure Note Anita Chu MD - 08/08/2020 EXAMINATION: XR CHEST 2VW HISTORY: R05: Cough COMPARISON: No prior study is available for comparison. FINDINGS/IMPRESSION: There is no focal consolidation, pleural effusion, or pneumothorax. The cardiomediastinal silhouette is normal. The visible bony thorax isintact. Dictated by Hernando Coelho MD (residential counselor). Dr. ANITA Liu M.D. have personally reviewed and interpreted this examination/study. This report was electronically signed by ANITA CHU M.D. on 08/08/2020 11:00 AM . Radha Rosales APRN-PUBLIC HEALTH PHYSICIAN DIAGNOSTIC [place] ORDERABLES * MONONUCLEOSIS SCREEN (08/08/2020 9:58 AM CDT) Mononucleosis Qualitative Negative Negative 08/08/2020 3:03 PM CDT [facility] Blood BLOOD SPECIMEN / Unknown Venipuncture / Unknown 08/08/2020 9:58 AM CDT 08/08/2020 3:03 PM CDT Matthew Mays MD LAB - CHEMISTRY [facility] [facility] Performing Organization Address City/[facility]/ZIP Co de Phone Number [address] [address], [facility] [phone] * TSH (08/08/2020 9:58 AM CDT) TSH 0.898 0.350 - 4.940 uIU/mL 08/08/2020 12:21 PM CDT [facility] Blood BLOOD SPECIMEN / Unknown Venipuncture / Unknown 08/08/2020 9:58 AM CDT 08/08/2020 10:23 AM CDT Matthew Mays MD LAB - CHEMISTRY [place] Performing Organization Address [facility] Co de Phone Number [address] [phone], [facility] [phone] * APHERESIS/TRANSFUSION ORDER (04/03/2020 9:52 PM LEATHER COLORER) Narrative 04/03/2020 9:52 PM LEATHER COLORER Ordered by an unspecified provider. Scanned Document NURSING - VITAL SIGN S AND ASSESSMENT * PATHOLOGY TISSUE EXAM (STL) (03/30/2020 9:34 AM LEATHER COLORER) Case Report Surgical Pathology Report Case: [id number] Authorizing Provider: Elton Regan MD Collected: 03/30/2020 09:34 AM Ordering Location: [facility] Received: 03/30/2020 09:41 AM Pathologist: Ramona Ross MD Specimens: A) - Fibroid, uterine fibroid frozen section room 16 ext.[id number] B) - Fibroid, fibroid----myosure C) - Fibroid, UTERINE FIBROIDS 60 GRAMS 03/31/2020 1:25 PM LEATHER COLORER [facility] Final Diagnosis A. Uterine fibroid, myomectomy: -- Leiomyoma B. Fibroid, myomectomy: -- Leiomyoma C. Uterine fibroid, myomectomy: -- Leiomyoma 03/31/2020 1:25 PM LEATHER COLORER [facility] Clinical History fibroid uterus, menorrhagia 03/31/2020 1:25 PM LEATHER COLORER [facility] Frozen Section FSA1: Leiomyoma. Reported to Dr. Regan at 9:50, 03/30/2020 03/31/2020 1:25 PM LEATHER COLORER [facility] Gross Description The specimens are received in three containers labeled with the patient's name Ramon Kulkarni Part A is received fresh, additionally labeled uterine fibroid, and consists of an unoriented, spherical fragment of white-turner, glistening, smooth tissue (0.6 x 0.5 x 0.5 cm). The specimen is bisected to show a uniform, turner-white, solid cut surface and is frozen as FSA1. The frozen section remnant is submitted in cassette A1. Part B is received in formalin, additionally labeled fibroid-myosure, and consists of multiple, irregular, unoriented, white tissue fragments (5 x 2 x 0.5 cm in aggregate). Entirely submitted in cassettes B1 and B2. Part C is received fresh, is additionally labeled uterine fibroids, and consists of multiple irregular unoriented fragments of firm, solid, turner-white tissue (24 gm, 6.5 x 5.5 x 1.5 cm in aggregate) with scant soft, brown, granular tissue. Sections show a uniform, solid, white, glistening whorled cut surface with no necrosis or hemorrhage. Cert Pharmacy Tech sections are submitted in cassettes C1 and C2. AMA/saundra 03/31/2020 1:25 PM LEATHER COLORER [facility] Microscopic Description A. The prominent sections confirm the frozen section diagnoses. Sections reveal a small piece of tissue composed of interlacing bundles of smooth muscle cells without the nuclear atypia,mitoses, necrosis, or other atypical features. B. Sections show fragments of secretory endometrium and benign myometrial tissue consistent with leiomyoma. C. Sections show benign leiomyoma focally surfaced by secretory endometrium. 03/31/2020 1:25 PM LEATHER COLORER [facility] Disclaimer All histochemical and/or immunohistochemical results are interpreted with controls that demonstrate appropriate staining reactions before reporting results. Note on use of immunocytochemistry reagents: This test was developed and its performance characteristic determined by [facility], Department of Laboratory Medicine. It has not been cleared or approved by the U.S. Food and Drug Administration (FDA). The FDA has determined that such clearance or approval is not necessary. The test is used for clinical purpose. It should not be regarded as investigational or for research. This laboratory is certified to perform high complexity testing. The performance characteristics of the IHC/MONIE assays have been validated on formalin-fixed paraffin embedded tissues only. The assays have not been validated on decalcified tissues. Results should be interpreted with caution. 03/31/2020 1:25 PM LEATHER COLORER [facility] Embedded Images 03/31/2020 1:25 PM LEATHER COLORER [facility] Pathology/Cytology FIBROMA / Unknown 05/2020 9:34 AM LEATHER COLORER 03/30/2020 9:41 AM LEATHER COLORER Miscellaneous samples (specimen) FIBROMA / Unknown 03/30/2020 9:41 AM LEATHER COLORER 03/30/2020 11:39 AM LEATHER COLORER Miscellaneous samples (specimen) FIBROMA / Unknown 03/30/2020 10:52 AM LEATHER COLORER 03/30/2020 11:39 AM LEATHER COLORER Elton Regan MD LAB - PATHOLOGY/CYTO LOGY ORDERABLES Performing Organization Address City/State/[facility] Co de Phone Number [facility] [address] [place] [address] * ETT LINE PERFORMABLE (03/30/2020 8:36 AM LEATHER COLORER) Narrative Kim Juarez APRN-CRNA - 03/30/2020 8:36 AM LEATHER COLORER Kim Juarez APRN-CRNA 03/30/2020 8:37 AM Endotracheal Tube Placement: Patient Location: OR. Intubation Event Date/Time: 03/30/2020 8:21 AM Procedure: intubation ([id number]). Procedure Section: Sedation: under general anesthesia. Indications for Airway Management: anesthesia Procedure pretreatments used? No Induction: standard IV Patient Position: sniffing Mask Ventilation: easy with oral airway. Blade Type: Francisco Blade Size: 3 Laryngoscopy View: grade 1 (full cords) Intubation Adjuncts: stylet Tube: endotracheal tube Placement: oral Tube type: cuff - inflated Tube Size (MM): 7 Depth of Insertion (CM): 21 Measured From: lips Cuff volume (mL): 7 Cuff Inflated With: air Number of Attempts: 1. Placement Verified By: direct visualization, bilateral breath sounds, chest auscultation and CO2 monitor Tube secured with: adhesive tape. Dentition unchanged? Yes Difficult Airway? No. Procedure Start Time: 03/30/2020 8:21 AM. Staff Section Anesthesia Provider: Kim Juarez APRN-CRNA, Performed the procedure Jack Ogden DO GENERAL ANESTHESIA O RDERABLES * SARS-COV-2 (COVID-19) IN HOUSE (03/27/2020 2:06 PM LEATHER COLORER) COVID-19 PCR Not detected Not detected 03/27/2020 10:[address] [facility] Microbiology SPECIMEN FROM NASOPHARYNGEAL STRUCTURE / Unknown Collection / Unknown 03/27/2020 2:06 PM LEATHER COLORER 03/27/2020 2:06 PM LEATHER COLORER Narrative [facility] - 03/27/2020 10:20 PM LEATHER COLORER This nucleic acid amplification assay performance was validated by [facility]. This test has been authorized by the Food and Drug administration (FDA)under an Emergency Use Authorization (EUA). This test has been validated in accordance with the FDA's guidance document Policy for Diagnostic Testing in Laboratories Certified to perform High Complexity Testing under CLIA prior to Emergency Use Authorization for Coronavirus Disease-2019 during the Public Health Emergency issued on April 24, 2019. FDA independent review of this validation is pending. This test is only authorized for the duration of time the declaration that circumstances exist justifying the authorization of emergency use of in vitro diagnostic tests for detection of SARS-CoV-2 virus and/or diagnosis of COVID-19 infection under section 564(b)(1) of the Act, 21 U.S.C 360bbb-3 (b)(1), unless the authorization is terminated or revoked sooner. Fact Sheets for this EUA assay are available upon request. Elton Regan MD LAB - MICROBIOLOGY O RDERABLES [facility] [address] [place], [place] [address] [phone] * TYPE + SCREEN PANEL (03/24/2020 2:43 PM LEATHER COLORER) Only the most recent of2 resultswithin the time period is included. Pathologist [facility] ABO Rh A NEG 03/24/2020 3:48 PM LEATHER COLORER [facility] Comment:History checked. Antibody Screen NEG 3:48 PM LEATHER COLORER [facility] Blood Bank BLOOD SPECIMEN / Unknown Venipuncture / Unknown 03/24/2020 2:43 PM LEATHER COLORER 03/24/2020 3:08 PM LEATHER COLORER Arlyn Reese DO LAB - BLOOD BANK ORD TAYOBLES Performing Organization Address City/[facility] Co de Phone Number [facility] [address] [place] [address], [facility] [phone] * (ABNORMAL) BASIC METABOLIC PANEL (CALCIUM TOTAL) (08/11/2014 11:27 AM CDT) [facility] Glucose 73(L) 74 - 106 mg/dL 08/11/2014 11:48 AM CDT [facility] Sodium 137 136 - 145 mmol/L 08/11/2014 11:48 AM CDT [facility] Potassium 3.7 3.5 - 5.1 mmol/L 08/11/2014 11:48 AM CDT [facility] Chloride 105 98 - 107 mmol/L 08/11/2014 11:48 AM CDT [facility] CO2 26 22 - 31 mmol/L 08/11/2014 11:48 AM CDT [facility] Calcium 9.0 8.5 - 10.1 mg/dL 08/11/2014 11:48 AM CDT [facility] Anion Gap 6 5 - 15 mmol/L 08/11/2014 11:48 AM CDT [facility] BUN 12 7 - 21 mg/dL 08/11/2014 11:48 AM CDT [facility] Creatinine 0.65 0.50 - 1.30 mg/dL 08/11/2014 11:48 AM CDT [facility] eGFR by MDRD >60 >60 mL/min/1.7 2 08/11/2014 11:48 AM CDT [facility] eGFR by MDRD >60 >60 mL/min/1.7 3m2 08/11/2014 11:48 AM CDT [facility] Blood BLOOD SPECIMEN / Unknown 08/11/2014 11:27 AM CDT 08/11/2014 11:31 AM CDT Anita Jaime MD LAB - CHEMISTRY [place] Performing Organization Address City/[facility]/ZIP Co de Phone Number [facility] [address] [place] [phone] * HCG BETA BLOOD QUANTITATIVE (08/11/2014 11:27 AM CDT) hCG Quantitative 14,825 mIU/mL 08/11/2014 12:08 PM CDT [facility] Blood BLOOD SPECIMEN / Unknown 08/11/2014 11:27 AM CDT 08/11/2014 11:31 AM CDT Narrative [facility] - 08/11/2014 12:08 PM CDT HCG Reference Range, mIU/ml: Males 0-2.0 Non Females 0-6.0 Perimenopausal Females ages 41-55* 0-7.7 Postmenopausal Females age >55* 0-14 Females, Weeks after LMP 0.2-1 week 5-50 1 - 2 weeks 50-500 2 - 3 weeks 100-5000 3 - 4 weeks 500-10,000 4 - 5 weeks 1000-50,000 5 - 6 weeks 10,000-100,000 6 - 8 weeks 15,000-200,000 2 - 3 months 10,000-100,000 Trophoblastic Disease >100,000 *In higher than expected HCG in females > age 40, a serum FSH >20 IU/L makes unlikely. Anita Jaime MD LAB - CHEMISTRY [place] BA[place] [facility] [address] [place] [address] [phone] * US OB TRANSVAG AND DOPPLER (08/11/2014 11:05 AM CDT) Anatomical Region Laterality Modality Ultrasound 08/11/2014 11:1 1 AM CDT Narrative 08/11/2014 11:12 AM CDT Obstetric ultrasound with transvaginal views only History: and cramping There is intrauterine consistent with a 6 week 4 day gestation based on crown-rump length measurement. heart tones are not identified. The right ovary measures 3.9 cm there is a right ovarian corpus luteum and left ovary measures 3.3 cm. Color Doppler imaging demonstrates normal color flow and spectral waveforms Absence of heart tones may be due to early dates and followup is recommended. Procedure Note Camden Razo MD - 08/11/2014 Obstetric ultrasound with transvaginal views only History: and cramping There is intrauterine consistent with a 6 week 4 day gestation based on crown-rump length measurement. heart tones are not identified. The right ovary measures 3.9 cm there is a right ovarian corpus luteum and left ovary measures 3.3 cm. Color Doppler imaging demonstrates normal color flow and spectral waveforms Absence of heart tones may be due to early dates and followup is recommended. Simona Cardoza DO US ORDERABLES * (ABNORMAL) HCG URINE QUALITATIVE - POINT OF CARE (IP) (08/11/2014 10:29 AM CDT) HCG Qual Urine Positive(A ) Negative [facility] POCT TESTING QC Verified Yes Yes [facility] POC T TESTING Urine specimen (specimen) URINE / Unknown 08/11/2014 10:29 AM CDT Anita Jaime MD LAB - POINT OF CARE ORDERABLES [facility] POCT TESTING [address] [phone] * (ABNORMAL) URINALYSIS ROUTINE W/REFLEX TO CULTURE (08/11/2014 10:25 AM CDT) Color UA Yellow Straw, Yellow, Dark Yellow 08/11/2014 10:39 AM [facility] Clarity UA Cloudy 08/11/2014 10:39 AM [facility] Specific [place] UA 1.023 1.005 - 1.030 08/11/2014 10:39 AM [facility] pH UA 6.0 5.0 - 8.0 pH 08/11/2014 10:39 AM [facility] Protein UA Negative Negative 08/11/2014 10:39 AM [facility] Blood UA Trace(A) Negative 08/11/2014 10:39 AM [facility] Leukocyte UA Negative Negative 08/11/2014 10:39 AM [facility] Nitrite UA Negative Negative 08/11/2014 10:39 AM [facility] Glucose UA Negative Negative 08/11/2014 10:39 AM [facility] Ketone UA Negative Negative 08/11/2014 10:39 AM [facility] Bilirubin UA Negative Negative 08/11/2014 10:39 AM [facility] Urobilinogen UA 0.2 0.1 - 1.0 EU/dL 08/11/2014 10:39 AM [facility] WBC UA Auto 2-5 0-2, 2-5 # /hpf 08/11/2014 10:39 AM [facility] RBC UA Auto 0-2 0-2, 2-5 # /hpf 08/11/2014 10:39 AM [facility] Epithelial Cell UA Auto 10-20(A) 0-2, 2-5 # /hpf 08/11/2014 10:39 AM [facility] Bacteria UA Auto 1+(A) None seen 08/11/2014 10:39 AM [facility] Hyaline Casts UA Auto 2-5(A) 0 - 2 #/lpf 08/11/2014 10:39 AM [facility] Reflex Status Culture not indicated 08/11/2014 10:39 AM [facility] Urine URINE SPECIMEN OBTAINED BY CLEAN CATCH PROCEDURE / Unknown 08/11/2014 10:25 AM CDT 08/11/2014 10:29 AM [facility] Anita Jaime MD LAB - URINALYSIS ORD ERABLES [facility] [address] [place] [address] 831 Care Teams Donations Attendant Relationship Specialty Start Date End Date Melvin Tineo MD [address] [place] [address] [address] [place] [address] PCP - General Internal Medicine 03/24/20
--- NOTE | 2024-04-30 15:31 | ED.BACK ---
HPI - Back Pain/Injury General Chief Complaint: Back Pain/Injury <Mónica Lunsford, DIRECTOR OF SUSTAINABLE DESIGN - Last Filed: 04/30/24 15:33> Stated Complaint: back pain for a few days <Mónica Lunsford APRN - Last Filed: 04/30/24 15:33> Time Seen by Provider: 04/30/24 14:50 <Mónica Lunsford DIRECTOR OF SUSTAINABLE DESIGN - Last Filed: 04/30/24 15:33> Focused HPI: Patient is a 43-year-old female who presents to the ER with complaints of back pain. She reports on Friday she went to the chiropractor who ?did a maneuver. Patient reports she had minimal pain afterwards but it has significantly worsened over the last 3 days. She reports last night the pain became excruciating. Patient denies any numbness and tingling, nausea or vomiting, recent fevers, or urinary symptoms. GENERAL: Well-appearing, well-nourished, and in mild distress d/t pain. HEAD: Normocephalic, atraumatic. CHEST: Clear to auscultation. ?No respiratory distress. HEART: Regular rate and rhythm.? NEURO: ?Alert and oriented x3. Patient screened in triage and initial orders placed.? ?Additional care and disposition to be based upon?diagnostic testing and treatment. <Mónica Lunsford, DIRECTOR OF SUSTAINABLE DESIGN - Last Filed: 04/30/24 15:33> Focused HPI: Patient is a 43-year-old female who presents to the ER with complaints of back pain. She reports on Friday she went to the chiropractor who ?did a maneuver. Patient reports she had minimal pain afterwards but it has significantly worsened over the last 3 days. She reports last night the pain became excruciating. Patient denies any numbness and tingling, nausea or vomiting, recent fevers, or urinary symptoms. GENERAL: Well-appearing, well-nourished, and in mild distress d/t pain. HEAD: Normocephalic, atraumatic. CHEST: Clear to auscultation. ?No respiratory distress. HEART: Regular rate and rhythm.? NEURO: ?Alert and oriented x3. Patient screened in triage and initial orders placed.? ?Additional care and disposition to be based upon?diagnostic testing and treatment. <Rachael Reid PA-C - Last Filed: 05/01/24 00:44> Source: patient <ARMIDA Lopez Last Filed: 05/01/24 00:44> Mode of arrival: ambulatory <Rachael Reid PA-C - Last Filed: 05/01/24 00:44> Limitations: no limitations <ARMIDA Lopez Last Filed: 05/01/24 00:44> History of Present Illness HPI Narrative: Agree with above HPI. Pain present throughout left mid back. Denies radiation to abdomen. Worse with movement. Has been taking Advil at home without improvement. Denies nausea vomiting. Denies urinary complaints. <ARMIDA Lopez Last Filed: 05/01/24 00:44> Related Data Allergies/Adverse Reactions: Allergies Allergy/AdvReac Type Severity Reaction Status Date / Time No Known Allergies Allergy Verified 04/30/24 13:07 <Mónica Lunsford APRN - Last Filed: 04/30/24 15:33> Review of Systems Review of Systems: All systems reviewed & are unremarkable except as noted in HPI. <Rachael Reid PA-C - Last Filed: 05/01/24 00:44> All systems reviewed & are unremarkable except as noted in HPI and below <Rachael Reid PA-C - Last Filed: 05/01/24 00:44> Exam Narrative: GENERAL: Mildly uncomfortable appearing, obese with BMI of 37.2, non-toxic, in mild acute distress due to pain HEAD: Normocephalic, atraumatic. RESPIRATORY: Airway patent, respirations nonlabored. Clear to auscultation bilaterally, no rales, rhonchi, wheezing. CARDIOVASCULAR: Regular rate and rhythm without murmurs, rubs, or gallops. ABDOMINAL: Soft, nontender, nondistended. Normoactive BS. MUSCULOSKELETAL: Moves all extremities. No gross deformities. TTP in L lower thoracic region. No midline spinal tenderness. No palpable bony deformities. SKIN: Warm, dry, normal color. NEURO: A&O X3. Speech clear. Cranial nerves II-XII grossly intact. Steady gait. No ataxic movements. PSYCHIATRIC: Appropriate mood and affect. Normal interaction. <Rachael Reid PA-C - Last Filed: 05/01/24 00:44> Course Vital Signs Vital signs: Vital Signs Temperature 97.5 F L 04/30/24 13:08 Pulse Rate 82 04/30/24 13:08 Respiratory Rate 16 04/30/24 13:08 Blood Pressure 131/82 04/30/24 13:08 Pulse Oximetry 100 04/30/24 13:08 Oxygen Delivery Room Air 04/30/24 13:08 Temperature 98.6 F 04/30/24 17:46 Pulse Rate 79 04/30/24 19:46 Respiratory Rate 18 04/30/24 19:46 Blood Pressure 127/74 04/30/24 19:46 Pulse Oximetry 100 04/30/24 19:46 Oxygen Delivery Room Air 04/30/24 13:08 <Mónica Lunsford, DIRECTOR OF SUSTAINABLE DESIGN - Last Filed: 04/30/24 15:33> Vital Signs Temperature 97.5 F L 04/30/24 13:08 Pulse Rate 82 04/30/24 13:08 Respiratory Rate 16 04/30/24 13:08 Blood Pressure 131/82 04/30/24 13:08 Pulse Oximetry 100 04/30/24 13:08 Oxygen Delivery Room Air 04/30/24 13:08 Temperature 98.6 F 04/30/24 17:46 Pulse Rate 79 04/30/24 19:46 Respiratory Rate 18 04/30/24 19:46 Blood Pressure 127/74 04/30/24 19:46 Pulse Oximetry 100 04/30/24 19:46 Oxygen Delivery Room Air 04/30/24 13:08 <ARMIDA Lopez Last Filed: 05/01/24 00:44> MDM - Back Pain/Injury MDM Narrative Medical decision making narrative: Patient?s pain is positional and localized to paraspinal muscles. Seems most consistent with musculoskeletal etiology. Focal tenderness to palpation in area of left mid back. No evidence of cord compression or cauda equina. Normal neurologic exams. No red flag symptoms. No symptoms or signs to suggest pain is referred from abdominal or source. UA was obtained and without evidence of infection. Patient given pain medication and muscle relaxers in the ED. On re-evaluation, she is feeling much improved. Resting comfortably. Pain is significantly improved. I did discuss with patient obtaining CT imaging to further evaluate for internal injury, however with patient's notable improvement with medications, feel it is reasonable to defer this at this time. Pain is consistent with musculoskeletal etiology. Discussed continued management of pain at home. Will discharge with lidocaine patches and muscle relaxers. Given strict return precautions. She agrees with plan. Feels comfortable going home. Discharged in stable condition. <Rachael Reid PA-C - Last Filed: 05/01/24 00:44> Medical Records Attestation: I reviewed the patient's medical records. <Rachael Reid PA-C - Last Filed: 05/01/24 00:44> Lab Data Attestation: I reviewed the patient's lab results. <Rachael Reid PA-C - Last Filed: 05/01/24 00:44> Labs: Lab Results 04/30/24 Range/Units 18:15 Urine Color Yellow (Yellow) Urine Appearance Cloudy H (Clear) Urine pH 6.5 (5.0-9.0) Ur Specific [place] 1.029 (1.001-1.035) Urine Protein Trace (Negative) mg/dL Urine Glucose (UA) Negative (Negative) mg/dL Urine Ketones Trace H (Negative) mg/dL Ur Blood (Man) Negative (Negative) Urine Nitrate Negative (Negative) Urine Bilirubin Negative (Negative) Urine Urobilinogen 0.2 (<2.0) mg/dL Leukocyte Esterase Rfl Negative (Negative) TRAVIS/UL Urine RBC 0-2 (0-2) /hpf Urine WBC 0-5 (0-3) /hpf Ur Squamous Epith Cells Moderate (Few) /hpf Urine Bacteria None seen /hpf Urine Casts 0-2 <Mónica Lunsford APRN - Last Filed: 04/30/24 15:33> Lab Results 04/30/24 Range/Units 18:15 Urine Color Yellow (Yellow) Urine Appearance Cloudy H (Clear) Urine pH 6.5 (5.0-9.0) Ur Specific [place] 1.029 (1.001-1.035) Urine Protein Trace (Negative) mg/dL Urine Glucose (UA) Negative (Negative) mg/dL Urine Ketones Trace H (Negative) mg/dL Ur Blood (Man) Negative (Negative) Urine Nitrate Negative (Negative) Urine Bilirubin Negative (Negative) Urine Urobilinogen 0.2 (<2.0) mg/dL Leukocyte Esterase Rfl Negative (Negative) TRAVIS/UL Urine RBC 0-2 (0-2) /hpf Urine WBC 0-5 (0-3) /hpf Ur Squamous Epith Cells Moderate (Few) /hpf Urine Bacteria None seen /hpf Urine Casts 0-2 <Rachael Reid PA-C - Last Filed: 05/01/24 00:44> Discharge Plan Discharge Clinical Impression: Strain of lumbar region Qualifiers: Encounter type: initial encounter Qualified Code(s): S39.012A - Strain of muscle, fascia and tendon of lower back, initial encounter <Mónica Lunsford APRN - Last Filed: 04/30/24 15:33> Patient Disposition: Home, Self-Care <Mónica Lunsford APRN - Last Filed: 04/30/24 15:33> Condition: Stable <Mónica Lunsford APRN - Last Filed: 04/30/24 15:33> Instructions: Antibiotic Form, Acute Low Back Pain (ED), Lower Back Exercises (ED) <Mónica Lunsford APRN - Last Filed: 04/30/24 15:33> Additional Instructions: Continue Tylenol and Ibuprofen as needed for pain. You may use ice/heat, lidocaine patches to area of pain. Take muscle relaxers as needed and prescribed. Recommend taking these at night as they may cause sedation. Do not drive, operate heavy machinery, drink alcohol while on muscle relaxers as this may cause further sedation. Follow-up with your primary care doctor for further evaluation. Return to the ED if you experience worsening or severe pain, recurrent injury, numbness in groin or legs, going to the bathroom without meaning to, unable to keep down food or drink, or any other symptoms of concern. <Mónica Lunsford APRN - Last Filed: 04/30/24 15:33> Patient Language: [place] <Mónica Lunsford APRN - Last Filed: 04/30/24 15:33> Prescriptions: New methocarbamol 750 mg tablet 1,500 mg PO TID PRN (Reason: muscle spasm) Qty: 15 0RF lidocaine 5 % adhesive patch,medicated 1 patch topical DAILY Qty: 15 0RF Rx Instructions: leave on most painful area for up to 12 hrs No Action sulfamethoxazole-trimethoprim [Bactrim DS] 800-160 mg tablet 1 tablet PO Q12H Qty: 20 0RF cyclobenzaprine 10 mg tablet 10 mg PO HS PRN (Reason: muscle spasm) Qty: 14 0RF <Mónica Lunsford APRN - Last Filed: 04/30/24 15:33> Follow-up/Referrals: Noman,MD Schmitt ([place]) [Primary Care Provider] - <Mónica Lunsford APRN - Last Filed: 04/30/24 15:33> Time of Disposition: 19:36 <Mónica Lunsford APRN - Last Filed: 04/30/24 15:33> 19:36 <Rachael Reid PA-C - Last Filed: 05/01/24 00:44>
--- OUTSIDE RECORDS SUMMARY | 2024-04-30 15:43 | XMS_ITS | Patient Health Summary ---
Author Organization [facility] Address [address] [place] [address] Care Team Providers Care Infrastructure Architect Name Role Phone Melvin Tineo MD Primary Care Provider [phone] Note from [facility] [place]non-owned Affiliates and Associated Physician Practices is amultiple site organization consisting of ambulatory clinics and hospital sitesin [place], [place], [place]. This disclosure is being madepursuant to the Care Everywhere program and may not contain all information available regarding this patient. Last updated 17.[facility] Allergies No known active allergies Medications * [...] - 26 mg/dL 12/25/2020 4:45 PM CDT [facility] Creatinine 0.77 0.56 - 0.96 mg/dL 12/25/2020 4:45 PM [facility] Sodium 141 136 - 145 mmol/L 12/25/2020 4:45 PM [facility] Potassium 3.6 3.5 - 4.5 mmol/L 12/25/2020 4:45 PM [facility] Chloride 111(H) 98 - 107 mmol/L 12/25/2020 4:45 PM [facility] CO2 21(L) 22 - 29 mmol/L 12/25/2020 4:45 PM [facility] Glucose 92 70 - 115 mg/dL 12/25/2020 4:45 PM [facility] Calcium 9.0 8.4 - 10.2 mg/dL 12/25/2020 4:45 PM [facility] Protein Total 7.6 6.0 - 8.3 g/dL 12/25/2020 4:45 PM [facility] Albumin 3.5 3.4 - 5.0 g/dL 12/25/2020 4:45 PM [facility] Bilirubin Total 0.3 0.2 - 1.2 mg/dL 12/25/2020 4:45 PM [facility] Alkaline Phosphatase 61 40 - 150 U/L 12/25/2020 4:45 PM [facility] ALT 8 5 - 55 U/L 12/25/2020 4:45 PM [facility] AST 16 5 - 34 U/L 12/25/2020 4:45 PM [facility] Anion Gap 13 8 - 18 12/25/2020 4:45 PM [facility] BUN/Creatinine Ratio 16 7 - 23 12/25/2020 4:45 PM [facility] Osmolality Calculated 291 270 - 300 mOsm/kg 12/25/2020 4:45 PM [facility] Albumin/Globulin Ratio 0.9(L) 1.1 - 2.3 12/25/2020 4:45 PM [facility] eGFR by CKD-EPI >90 >=90 mL/min/1.7 3 m2 12/25/2020 4:45 PM [facility] Blood BLOOD SPECIMEN / Unknown Venipuncture / Unknown 12/25/2020 4:10 PM CDT 12/25/2020 4:19 PM CDT Frederic Sears MD LAB - CHEMISTRY [place] BA[place] [facility] Organization Address City/State/ZIP Co de Phone Number [facility] [address] [place] [address], [facility] [phone] * (ABNORMAL) CBC W AUTO DIFFERENTIAL (12/25/2020 1:34 PM CDT) Only the most recent of4 resultswithin the time period is included. WBC 5.3 3.5 - 10.5 10 3/uL 12/25/2020 1:43 PM [facility] RBC 3.82 3.80 - 5.20 10 6/uL 12/25/2020 1:43 PM [facility] Hemoglobin 11.2(L) 12.0 - 15.6 g/dL 12/25/2020 1:43 PM [facility] Hematocrit 33.4(L) 35.0 - 45.0 % 12/25/2020 1:43 PM [facility] MCV 87.4 80.7 - 98.3 fL 12/25/2020 1:43 PM [facility] MCH 29.3 26.7 - 34.0 pg 12/25/2020 1:43 PM [facility] MCHC 33.5 30.8 - 35.9 g/dL 12/25/2020 1:43 PM [facility] Platelet Count 243 150 - 400 10 3/uL 12/25/2020 1:43 PM [facility] RDW-SD 41.1 36.0 - 50.0 fL 12/25/2020 1:43 PM [facility] RDW-CV 12.9 11.2 - 14.8 % 12/25/2020 1:43 PM [facility] MPV 9.6 9.4 - 12.9 fL 12/25/2020 1:43 PM [facility] nRBC Absolute 0.00 0 10 3/uL 12/25/2020 1:43 PM [facility] nRBC Auto 0.0 0 /100 WBC 12/25/2020 1:43 PM [facility] Neutrophils % 45.5 35.0 - 70.0 % 12/25/2020 1:43 PM [facility] Lymphocytes % 41.9 20.0 - 43.0 % 12/25/2020 1:43 PM CDT [facility] Monocytes % 10.3 5.0 - 13.0 % 12/25/2020 1:43 PM T [facility] Eosinophils % 1.9 0.0 - 6.0 % 12/25/2020 1:43 PM T [facility] Basophil % 0.2 0.0 - 2.0 % 12/25/2020 1:43 PM T [facility] Neutrophils Absolute 2.4 1.6 - 7.0 10 3/uL 12/25/2020 1:43 PM CDT [facility] Lymphocyte Absolute 2.2 1.1 - 3.9 10 3/uL 12/25/2020 1:43 PM T [facility] Monocytes Absolute 0.54 0.26 - 1.07 10 3/uL 12/25/2020 1:43 PM T [facility] Eosinophils Absolute 0.10 0.00 - 0.47 10 3/uL 12/25/2020 1:43 PM T [facility] Basophils Absolute 0.01 0.00 - 0.08 10 3/uL 12/25/2020 1:43 PM CDT [facility] Immature Granulocytes % 0.2 0.0 - 1.0 % 12/25/2020 1:43 PM T [facility] Immature Granulocytes Absolute 0.01 12/25/2020 1:43 PM [facility] Blood BLOOD SPECIMEN / Unknown Venipuncture / Unknown 12/25/2020 1:34 PM CDT 12/25/2020 1:39 PM CDT Frederic Sears MD LAB - HEMATOLOGY ORD ERABLES [facility] [address] [place] [address], [facility] [phone] * LIPASE BLOOD (12/25/2020 1:34 PM CDT) Lipase 22 8 - 78 U/L 12/25/2020 2:09 PM CDT [facility] Blood BLOOD SPECIMEN / Unknown Venipuncture / Unknown 12/25/2020 1:34 PM CDT 12/25/2020 1:39 PM CDT Frederic Sears MD LAB - CHEMISTRY [place] Performing Organization Address City/State/[facility] Co de Phone Number [facility] [address] [place] [address], [facility] [phone] * US ABDOMEN LIMITED (12/25/2020 8:15 AM CDT) Anatomical Region Laterality Modality Abdomen Ultrasound 12/25/2020 8:14 AM CDT Impressions 12/25/2020 9:43 AM CDT IMPRESSION: 1.No discrete hepatic lesion or intrahepatic biliary ductal dilatation. 2.No evidence of cholelithiasis or cholecystitis. 3.Partially visualized nonspecific fluid-filled loops of bowel. Dictated by Eduardo Gonzalez DO (resident care director). I, Dr. BROOKS PARIS MD, [facility] have [...] of bowel. Dictated by Eduardo Gonzalez DO (resident care director). I, Dr. BROOKS PARIS MD, [facility] have personally reviewedand interpreted this examination/study. [...] UA Slt Cloudy(A) Clear 12/25/2020 6:37 AM [facility] Specific [place] UA 1.027 1.005 - 1.030 12/25/2020 6:37 AM [facility] pH UA 5.0 5.0 - 8.0 pH 12/25/2020 6:37 AM [facility] Protein UA 1+(A) Negative 12/25/2020 6:37 AM [facility] Glucose UA Negative Negative 12/25/2020 6:37 AM [facility] Ketone UA Negative Negative 12/25/2020 6:37 AM [facility] Bilirubin UA Negative Negative 12/25/2020 6:37 AM [facility] Blood UA 3+(A) Negative 12/25/2020 6:37 AM [facility] Nitrite UA Negative Negative 12/25/2020 6:37 AM [facility] Leukocyte Esterase Negative Negative 12/25/2020 6:37 AM [facility] Urobilinogen UA Negative Negative mg/dL 12/25/2020 6:37 AM [facility] RBC UA >100(A) None Seen, 0-2, 3-5 /HPF 12/25/2020 6:37 AM [facility] WBC UA 0-5 None Seen, 0-5 /HPF 12/25/2020 6:37 AM [facility] Squamous Epithelial Cells UA 0-2 None Seen, 0-2, 3-5 /HPF 12/25/2020 6:37 AM [facility] Mucus UA 1+ /LPF 12/25/2020 6:37 AM [facility] Urine URINE SPECIMEN OBTAINED BY CLEAN CATCH PROCEDURE / Unknown Collection / Unknown 12/25/2020 6:04 AM CDT 12/25/2020 6:[address] [facility] - 12/25/2020 6:37 AM [facility] [place] 2] Frederic Sears MD LAB - URINALYSIS ORD ERABLES [facility] [address] [place] [address], [facility] [phone] * HCG URINE QUALITATIVE (12/25/2020 6:04 AM CDT) Only the most recent of3 resultswithin the time period is included. Test Urine Negative Negative 12/25/2020 7:06 AM CDT [facility] Urine URINE / Unknown Collection / Unknown 12/25/2020 6:04 AM CDT 12/25/2020 6:17 AM CDT Frederic Sears MD LAB - URINALYSIS ORD ERABLES Performing Organization Address [facility]/ZIP Co de Phone Number [address] [address], [facility] [phone] * STREP A SCREEN DIRECT W RFLX STREP A CULTURE (08/08/2020 11:57 AM CDT) [facility] Rapid Strep A Screen Negative Negative 08/08/2020 12:19 PM CDT [facility] Microbiology ENTIRE THROAT (SURFACE REGION OF NECK) / Unknown Collection / Unknown 08/08/2020 11:57 AM CDT 08/08/2020 11:57 AM CDT Narrative [facility] - 08/08/2020 12:19 PM CDT Rapid test for Group A Beta Streptococcus is NEGATIVE. A Negative, Direct Test for Group A Streptococcus will be followed with a confirmatory Throat Culture when 2 swabs have been submitted. Matthew Mays MD LAB - MICROBIOLOGY O RDERABLES Performing Organization Address City/[facility]/ZIP Co de Phone Number [address] [address], [facility] [phone] * CULTURE STREP GROUP A (08/08/2020 11:57 AM CDT) Pathologist [facility] Culture Negative for beta-hemolytic Streptococcus Group A IRMA 08/10/2020 6:54 AM CDT [facility] Microbiology ENTIRE THROAT (SURFACE REGION OF NECK) / Unknown Collection / Unknown 08/08/2020 11:57 AM CDT 08/08/2020 11:57 AM CDT Matthew Mays MD LAB - MICROBIOLOGY O RDERABLES [facility] [address] [place] [address], [facility] [phone] * SARS-COV-2 (COVID-19)+INFLU A+B PCR RAPID (08/08/2020 11:06 AM CDT) COVID-19 PCR Not detected Not detected 08/09/19 12:20 PM CDT [facility] Influenza A Rapid GARRY Not Detected Not Detected 08/08/2020 12:20 PM CDT [facility] Influenza B GARRY Rapid Not Detected Not Detected 08/08/2020 12:20 PM CDT [facility] Microbiology SPECIMEN FROM NASOPHARYNGEAL STRUCTURE / Unknown Collection / Unknown 08/08/2020 11:06 AM CDT 08/08/2020 11:31 AM CDT Narrative [facility] - 08/08/2020 12:20 PM CDT Influenza assay [...] acid amplification assay performance was validated by [facility]. This test has been authorized by the [...] assay are available upon request. Radha Rosales APRN-PRESCHOOL AIDE LAB - MICROBIO LOGY ORDERABLES [place] [address] [place] [address], [facility] [phone] * XR CHEST 2VW (08/08/2020 10:31 AM CDT) Anatomical Region Laterality Modality Chest Radiographic Kerri ging 08/08/2020 10:2 9 AM CDT Impressions 08/08/2020 11:00 AM CDT FINDINGS/IMPRESSION: There is no focal consolidation, pleural effusion, or pneumothorax. The cardiomediastinal silhouette is normal. The visible bony thorax is intact. Dictated by Hernando Coelho MD (resident care director). Dr. ANITA Liu M.D. have personally reviewed [...] thorax isintact. Dictated by Hernando Coelho MD (resident care director). Dr. ANITA Liu M.D. have personally reviewed and interpreted this examination/study. This report was electronically signed by ANITA CHU M.D. on 08/08/2020 11:00 AM . Radha Rosales APRN-PRESCHOOL AIDE DIAGNOSTIC KERRI GING ORDERABLES * MONONUCLEOSIS SCREEN (08/08/2020 9:58 AM CDT) Mononucleosis Qualitative Negative Negative 08/08/2020 3:03 PM CDT [facility] Blood BLOOD SPECIMEN / Unknown Venipuncture / Unknown 08/08/2020 9:58 AM CDT 08/08/2020 3:03 PM CDT Matthew Mays MD LAB - CHEMISTRY [place] Performing Organization Address City/[facility]/ZIP Co de Phone Number [address] [address], [facility] [phone] * TSH (08/08/2020 9:58 AM CDT) TSH 0.898 0.350 - 4.940 uIU/mL 08/08/2020 12:21 PM CDT [facility] Blood BLOOD SPECIMEN / Unknown Venipuncture / Unknown 08/08/2020 9:58 AM CDT 08/08/2020 10:23 AM CDT Matthew Mays MD LAB - CHEMISTRY [place] Performing Organization Address [facility] Co de Phone Number [address] [address], [facility] [phone] * APHERESIS/TRANSFUSION ORDER (04/03/2020 9:52 PM PERSONAL INJURY LITIGATION PARALEGAL) Narrative 04/03/2020 9:52 PM PERSONAL INJURY LITIGATION PARALEGAL Ordered by an unspecified provider. Scanned Document NURSING - VITAL SIGN S AND ASSESSMENT * PATHOLOGY TISSUE EXAM (STL) (03/30/2020 9:34 AM PERSONAL INJURY LITIGATION PARALEGAL) Case Report Surgical Pathology Report Case: [id number] Authorizing Provider: Elton Regan MD Collected: 03/30/2020 09:34 AM Ordering Location: [facility] Received: 03/30/2020 09:41 AM Pathologist: Ramona Ross MD Specimens: A) - Fibroid, uterine fibroid frozen section room 16 ext.[id number] B) - Fibroid, fibroid----myosure C) - Fibroid, UTERINE FIBROIDS 60 GRAMS 03/31/2020 1:25 PM PERSONAL INJURY LITIGATION PARALEGAL [facility] Final Diagnosis A. Uterine fibroid, myomectomy: -- Leiomyoma B. Fibroid, myomectomy: -- Leiomyoma C. Uterine fibroid, myomectomy: -- Leiomyoma 03/31/2020 1:25 PM PERSONAL INJURY LITIGATION PARALEGAL [facility] Clinical History fibroid uterus, menorrhagia 03/31/2020 1:25 PM PERSONAL INJURY LITIGATION PARALEGAL [facility] Frozen Section FSA1: Leiomyoma. Reported to Dr. Regan at 9:50, 03/30/2020 03/31/2020 1:25 PM PERSONAL INJURY LITIGATION PARALEGAL [facility] Gross Description The specimens are [...] cut surface with no necrosis or hemorrhage. Senior Electronics Technician sections are submitted in cassettes C1 and C2. AMA/saundra 03/31/2020 1:25 PM PERSONAL INJURY LITIGATION PARALEGAL [facility] Microscopic Description A. The prominent [...] surfaced by secretory endometrium. 03/31/2020 1:25 PM PERSONAL INJURY LITIGATION PARALEGAL [facility] Disclaimer All histochemical and/or immunohistochemical results are interpreted with controls that demonstrate appropriate staining reactions before reporting results. Note on use of immunocytochemistry reagents: This test was developed and its performance characteristic determined by [facility], Department of Laboratory Medicine. It has [...] be interpreted with caution. 03/31/2020 1:25 PM PERSONAL INJURY LITIGATION PARALEGAL [facility] Embedded Images 03/31/2020 1:25 PM PERSONAL INJURY LITIGATION PARALEGAL [facility] Pathology/Cytology FIBROMA / Unknown 05/2020 9:34 AM PERSONAL INJURY LITIGATION PARALEGAL 03/30/2020 9:41 AM PERSONAL INJURY LITIGATION PARALEGAL Miscellaneous samples (specimen) FIBROMA / Unknown 03/30/2020 9:41 AM PERSONAL INJURY LITIGATION PARALEGAL 03/30/2020 11:39 AM PERSONAL INJURY LITIGATION PARALEGAL Miscellaneous samples (specimen) FIBROMA / Unknown 03/30/2020 10:52 AM PERSONAL INJURY LITIGATION PARALEGAL 03/30/2020 11:39 AM PERSONAL INJURY LITIGATION PARALEGAL Elton Regan MD LAB - PATHOLOGY/CYTO LOGY ORDERABLES Performing Organization Address City/State/[facility] Co de Phone Number [facility] [address] [place] [address] * ETT LINE PERFORMABLE (03/30/2020 8:36 AM PERSONAL INJURY LITIGATION PARALEGAL) Narrative Kim Juarez APRN-CRNA - 03/30/2020 8:36 AM PERSONAL INJURY LITIGATION PARALEGAL Kim Juarez APRN-CRNA 03/30/2020 8:37 AM Endotracheal Tube Placement: Patient Location: OR. Intubation Event Date/Time: 03/30/2020 8:21 AM Procedure: intubation ([id number]). Procedure Section: Sedation: under general anesthesia. Indications [...] SARS-COV-2 (COVID-19) IN HOUSE (03/27/2020 2:06 PM PERSONAL INJURY LITIGATION PARALEGAL) COVID-19 PCR Not detected Not detected 03/27/2020 10:20 PM PERSONAL INJURY LITIGATION PARALEGAL [facility] Microbiology SPECIMEN FROM NASOPHARYNGEAL STRUCTURE / Unknown Collection / Unknown 03/27/2020 2:06 PM PERSONAL INJURY LITIGATION PARALEGAL 03/27/2020 2:06 PM PERSONAL INJURY LITIGATION PARALEGAL Narrative [facility] - 03/27/2020 10:20 PM PERSONAL INJURY LITIGATION PARALEGAL This nucleic acid amplification assay performance was validated by [facility]biology Laboratory. This test has been authorized [...] Regan MD LAB - MICROBIOLOGY O RDERABLES [facility] [address] [place], [place] [address] [phone] * TYPE + SCREEN PANEL (03/24/2020 2:43 PM PERSONAL INJURY LITIGATION PARALEGAL) Only the most recent of2 resultswithin the time period is included. Pathologist [facility] ABO Rh A NEG 03/24/2020 3:48 PM PERSONAL INJURY LITIGATION PARALEGAL [facility] Comment:History checked. Antibody Screen NEG 3:48 PM PERSONAL INJURY LITIGATION PARALEGAL [facility] Blood Bank BLOOD SPECIMEN / Unknown Venipuncture / Unknown 03/24/2020 2:43 PM PERSONAL INJURY LITIGATION PARALEGAL 03/24/2020 3:08 PM PERSONAL INJURY LITIGATION PARALEGAL Arlyn Reese DO LAB - BLOOD BANK ORD TAYOBLES Performing Organization Address City/[facility] Co de Phone Number [facility] [address] [place] [address], [facility] [phone] * (ABNORMAL) BASIC METABOLIC PANEL (CALCIUM TOTAL) (08/11/2014 11:27 AM CDT) [facility] Glucose 73(L) 74 - 106 mg/dL 08/11/2014 11:48 AM CDT [facility] Sodium 137 136 - 145 mmol/L 08/11/2014 11:48 AM CDT [facility] Potassium 3.7 3.5 - 5.1 mmol/L 08/11/2014 11:48 AM CDT [facility] Chloride 105 98 - 107 mmol/L 08/11/2014 11:48 AM CDT [facility] CO2 26 22 - 31 mmol/L 08/11/2014 11:48 AM CDT [facility] Calcium 9.0 8.5 - 10.1 mg/dL 08/11/2014 11:48 AM CDT [facility] Anion Gap 6 5 - 15 mmol/L 08/11/2014 11:48 AM CDT [facility] BUN 12 7 - 21 mg/dL 08/11/2014 11:48 AM CDT [facility] Creatinine 0.65 0.50 - 1.30 mg/dL 08/11/2014 11:48 AM CDT [facility] eGFR by MDRD >60 >60 mL/min/1.7 2 08/11/2014 11:48 AM CDT [facility] eGFR by MDRD >60 >60 mL/min/1.7 3m2 08/11/2014 11:48 AM CDT [facility] Blood BLOOD SPECIMEN / Unknown 08/11/2014 11:27 AM CDT 08/11/2014 11:31 AM CDT Anita Jaime MD LAB - CHEMISTRY [place] BAIG Performing Organization Address City/[facility]/ZIP Co de Phone Number [facility] [address] [place] [phone] * HCG BETA BLOOD QUANTITATIVE (08/11/2014 11:27 AM CDT) hCG Quantitative 14,825 mIU/mL 08/11/2014 12:08 PM CDT [facility] Blood BLOOD SPECIMEN / Unknown 08/11/2014 11:27 AM CDT 08/11/2014 11:31 AM CDT Narrative [facility] - 08/11/2014 12:08 PM CDT HCG [...] Jaime MD LAB - CHEMISTRY [place] BA[place] [facility] [address] [place] [address] [phone] * US OB TRANSVAG AND DOPPLER (08/11/2014 [...] POINT OF CARE ORDERABLES [facility] POCT TEST[facility] [address] [phone] * (ABNORMAL) URINALYSIS ROUTINE W/REFLEX TO CULTURE (08/11/2014 10:25 AM CDT) Color UA Yellow Straw, Yellow, Dark Yellow 08/11/2014 10:39 AM [facility] Clarity UA Cloudy 08/11/2014 10:39 AM [facility] Specific [place] UA 1.023 1.005 - 1.030 08/11/2014 10:39 AM [facility] pH UA 6.0 5.0 - 8.0 pH 08/11/2014 10:39 AM [facility] Protein UA Negative Negative 08/11/2014 10:39 AM [facility] Blood UA Trace(A) Negative 08/11/2014 10:39 AM [facility] Leukocyte UA Negative Negative 08/11/2014 10:39 AM [facility] Nitrite UA Negative Negative 08/11/2014 10:39 AM [facility] Glucose UA Negative Negative 08/11/2014 10:39 AM [facility] Ketone UA Negative Negative 08/11/2014 10:39 AM [facility] Bilirubin UA Negative Negative 08/11/2014 10:39 AM [facility] Urobilinogen UA 0.2 0.1 - 1.0 EU/dL 08/11/2014 10:39 AM [facility] WBC UA Auto 2-5 0-2, 2-5 # /hpf 08/11/2014 10:39 AM [facility] RBC UA Auto 0-2 0-2, 2-5 # /hpf 08/11/2014 10:39 AM [facility] Epithelial Cell UA Auto 10-20(A) 0-2, 2-5 # /hpf 08/11/2014 10:39 AM [facility] Bacteria UA Auto 1+(A) None seen 08/11/2014 10:39 AM [facility] Hyaline Casts UA Auto 2-5(A) 0 - 2 #/lpf 08/11/2014 10:39 AM [facility] Reflex Status Culture not indicated 08/11/2014 10:39 AM [facility] Urine URINE SPECIMEN OBTAINED BY CLEAN CATCH PROCEDURE / Unknown 08/11/2014 10:25 AM CDT 08/11/2014 10:29 AM [facility] [place]NOTE 2] Anita Jaime MD LAB - URINALYSIS ORD ERABLES [facility] [address] [place] [address] 365 Care Teams Infrastructure Architect Relationship Specialty Start Date End Date Melvin Tineo MD [address] [place] [address] [address] [place] [address] PCP - General Internal Medicine 03/24/20
--- OUTSIDE RECORDS SUMMARY | 2024-04-30 15:43 | XMS_ITS | Clinical Summary ---
Author Organization [facility] Address [address] [place] [address] Phone Care Team Providers Care Deli Associate Name Role Phone Unavailable Primary Care Provider [...] Result * (ABNORMAL) CERV/VAG CYTOPATH, THIN PREP GRADING SUPERVISOR AND HPV (CP) (08/07/2015 4:21 PM CDT) CLINICAL INFORMATION [employer] Comment: Routine exam WWE LAST MENSTRUAL PERIOD [employer] Comment:[phone] PREV PAP: [employer] Comment:INFORMATION NOT PROV IDED PREV BX: [employer] Comment:INFORMATION NOT PROV IDED SOURCE [employer] Comment:End[employer] ADEQUACY: [employer] Comment: Satisfactory for evaluation. Endocervical/transformation zone component present. GENERAL CATEGORIZATION: (A) [facility] Comment:EPITHELIAL CELL ABNO RMALITY INTERPRETATION (A) [employer] Comment: Atypical Squamous Cells, cannot exclude High Grade Squamous Intraepithelial Lesion (ASC-H) COMMENT [employer] Comment: This Pap test has been evaluated with computer assisted technology. Suggest clinical correlation and follow-up as clinically appropriate OIL DIPPER: [email or web address] [facility] Comment: CHRISTINE MARTINEZ(ASCP) CT screening location: [address] [place] [address] PATHOLOGIST [facility] Comment: Mika Barney M.D., Board Certified in Anatomic Pathology and Cytopathology. (electronic signature) Test Performed at: [address] [address] OSCAR GILMORE MD HPV E6/E7 Not Detected Not Detected [facility] Comment: This test was performed using the APTIMA HPV Assay ([employer] This assay detects E6/E7 viral messenger RNA (mRNA) from 14 high-risk HPV types (16,18,31,33,35,39,45,51,52,56,58,59,66,68). Specimen from genital system (specimen) SWAB OF ENDOCERVIX / Unknown 08/07/2015 4:21 PM CDT us Mika Astorga MD PATHOLOGY/CYTOLOGY ORDERABLE S Final Result [facility] [address] [place] [address] from Last 3 Months or Most Recently Relevant to Health Maintenance Insurance [employer] OPEN ACCESS HMO [employer] CHOICE FUND OA PLUS Advance Directives For more information, please contact: [phone] * Full Code (Latest Code Status on File) Date Activated Date Inactivated Comments 08/25/2015 5:23 AM 08/25/2015 10:21 AM
--- OUTSIDE RECORDS SUMMARY | 2024-04-30 15:43 | XMS_ITS | Clinical Summary ---
Author Organization [facility] [employer] Address [address] [place] [address] Care Team Providers Care Exhauster Engineer Name Role Phone Melvin Tineo MD Primary Care Provider Source Comments [facility] [employer],non-owned Affiliates and Associated Physician Practices is amultiple site organization consisting of ambulatory clinics and hospital sitesin [place], [place], [place] and [place]. This disclosure is being madepursuant to the Care Everywhere program and may not contain all information available regarding this patient. Last updated 17.[facility] [employer] Allergies No known active allergies Medications * [...] age to complete this topic Care Teams Exhauster Engineer Relationship Specialty Start Date End Date Melvin Tineo MD [address] [place] [address] [address] [place] [address] PCP - General Internal Medicine 03/24/20
--- OUTSIDE RECORDS SUMMARY | 2024-04-30 15:43 | XMS_ITS | Encounter Summary ---
Author Organization [facility] Address [address] [place] [address] Care Team Providers Care Assistance Representative Name Role Phone Unavailable Primary Care Provider Unavailabl e Encounter Details Date Type Department Care Team (Late st Contact Info) Description 05/06/2023 Lab Requisition [facility] [address] [place] [address] [facility], External Provider [address] [facility] [place] [address] Social History Tobacco Use Types Packs/Day Years [...] <0.50 ug/mL FEU 05/06/2023 3:52 PM CDT [facility] Blood 05/06/2023 12:1 6 PM CDT 05/06/2023 3:10 PM CDT Narrative [facility] - 05/06/2023 3:52 PM CDT D-Dimer assay cutoff value for exclusion of DVT and/or PE is <0.50 ug/mL FEU. us External Provider [facility] HEMATOLOGY ORDERABLES Fi nal Result [facility] CLMO# [id number] [address] [place] [address] documented in this encounter Visit Diagnoses Not on filedocumented in this encounter
--- OUTSIDE RECORDS SUMMARY | 2024-04-30 15:43 | XMS_ITS | Clinical Summary ---
Author Organization [facility] Address [facility] [place] [address] Care Team Providers Care Decorating Machine Operator Name Role Phone Melvin Tineo MD Primary Care Provider [phone] Allergies No known active allergies Medications naproxen [...] Info) Description 06/22/2024 11:40 AM CDT Appointment [facility]ammography [address] [place] [address] Melvin Tineo MD [address] [place] [address] Health Maintenance Due Date Last [...] (#1) 2023 04/17/2020, 12/13/2019, 08/25/2015 PHQ-2 (Physician [place]) 02/25/2024 11/05/2023 Mammogram Screening 06/18/2025 06/19/2023 DTaP, [...] patient's age to complete this topic Insurance [facility] Care Teams Decorating Machine Operator Relationship Specialty Start Date End Date Melvin Tineo MD [address] [facility] [address] [place] [address] PCP - General INTERNAL MEDICINE 04/17/20
--- OUTSIDE RECORDS SUMMARY | 2024-04-30 15:43 | XMS_ITS | Encounter Summary ---
Author Organization [facility] Address [address] [place] [address] Care Team Providers Care Land Leveler Name Role Phone Unavailable Primary Care Provider [...]
--- OUTSIDE RECORDS SUMMARY | 2024-04-30 15:43 | XMS_ITS | Clinical Summary ---
Author Organization [facility] Address [address] [place] [address] Care Team Providers Care Screening Representative Name Role Phone Melvin Tineo MD Primary Care Provider [phone] Allergies Active Allergy Reactions Criticality Noted Date Comments Banana Medications ibuprofen (ADVIL,MOTRIN) 600 mg tabletIndicatio ns:Pain Take 1 tablet (600 mg total) by mouth every 6 (six) hours as needed for pain 30 tablet 0 Active Additional Information Patient not taking.Reported on 04/30/2024 acetaminophen (TYLENOL) 500 mg tablet Take 1-2 tablets (500-1,000 mg total) by mouth every 6 (six) hours as needed for pain (1 tablet for mild to moderate pain. 2 tablets for severe pain) 30 tablet 0 Active Additional Information Patient not taking.Reported on 04/30/2024 albuterol HFA (PROVENTIL HFA,VENTOLIN HFA,PROAIR HFA) 90 mcg/actuation inhaler albuterol sulfate HFA 90 mcg/actuation aerosol inhaler INHALE 2 PUFFS BY MOUTH EVERY 4 HOURS NEEDED FOR DIFFICULT BREATHING 1 Active aspirin 81 mg enteric coated tablet aspirin 81 mg tablet,delayed release Active buPROPion SR (WELLBUTRIN SR) 150 mg 12 hr tablet Take 1 tablet (150 mg total) by mouth daily Active cholecalciferol (VITAMIN D-3) 2000 unit capsule Take by mouth Active docusate sodium (COLACE) 100 mg capsule Take 1 capsule (100 mg total) by mouth 2 (two) times a day 1 Active doxycycline (doxycycline hyclate) 100 mg capsule Active enoxaparin (LOVENOX) 40 mg/0.4 mL syringe ADMINISTER 1 SYRINGE UNDER THE SKIN DAILY Active ergocalciferol (VITAMIN D) 50,000 unit capsule Active estradioL (ESTRACE) 2 mg tablet Active ferrous sulfate 325 mg (65 mg of elemental iron) tablet FeroSul 325 mg (65 mg iron) tablet TAKE 1 TABLET BY MOUTH TWICE DAILY ON THE TO THE OF EACH MONTH 0 Active multivit 01-ycpi-cbitsl 6-dha 28 mg iron-1 mg -300 mg capsule Take 1 tablet by mouth daily 6 Active polyethylene glycol (MIRALAX) 17 gram/dose powder Take 17 g by mouth daily 9 Active traMADoL (ULTRAM) 50 mg tablet TAKE 1 TABLET BY MOUTH UP TO TWICE DAILY NEEDED 9 Active meclizine (ANTIVERT) 25 mg tablet 3 Active FLUoxetine 10 mg capsule 1 tablet/capsule (10 mg total) daily Active HYDROcodone-luis taminophen (NORCO) 5-325 mg per tablet TAKE 1 OR 2 TABLET BY MOUTH EVERY 6 HOURS NEEDED FOR PAIN 5 Active hydrOXYzine (VISTARIL) 25 mg capsule every 6 hours Activ e amoxicillin 500 mg capsule TAKE 1 CAPSULE BY MOUTH THREE TIMES DAILY UNTIL GONE 5 Active Active Problems Problem Noted Date Diagnosed Date Generalized anxiety disorder 04/30/2024 Major depression 04/30/2024 Fatigue 01/06/2023 Elevated liver function tests 01/03/2023 Vertigo 10/30/2022 Recurrent urinary tract infection 06/26/2022 07/11/2022 Asthma 06/26/2022 07/11/2022 Iron deficiency anemia 06/26/2022 3 Positive antinuclear antibody 06/26/2022 Diagnosis unknown 03/30/2020 07/11/2022 Pap smear of cervix with ASCUS, cannot exclude H GSIL 09/11/2015 07/11/2022 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 Con[facility]ient Care at [address] [address] Carolina Pratt NP Acute left-sided low back pain without sciatica (Primary Dx) from Last 3 Months Immunizations Immunization Administration Dates Next Due Influenza, Trivalent, IM (MDV) 04/17/2020,2019 Influenza, Unspecified 08/25/2015 Pneumococcal Polysaccharide PPV23 2021,11/27/2020,05/15/2020, 1,12/13/2019 Rho (D) Immune Globulin 08/11/2014 Tdap 11/27/2020, 1,04/17/2020, 0 Social History Tobacco Use Types Packs/Day Years Used Date Smoking Tobacco: Never Smokeless Tobacco: Never AUDIT-C Answer Date Recorded Q1: How often do you have a drink containing alcohol? Never 09/07/2022 Q2: How many drinks containi ng alcohol do you have on a typical day when you are drinking? Patient does not drink 3 Q3: How often do you have si x or more drinks on one occasion? Never 09/07/2022 Comments No Sex and Gender Information Value Date Recorded Sex Assigned at Not on file Legal Sex Female 1:12 PM KNUCKLE BENDER Gender Identity Not on file Sexual Orientation Not on file Obstetrics History Last Filed Vital Signs Vital Sign Reading Time Taken Comments Blood Pressure 128/78 04/30/2024 12:19 PM KNUCKLE BENDER Pulse 72 04/30/2024 12:19 PM KNUCKLE BENDER Temperature 36.4 C (97.5 F) 04/30/2024 12:19 PM KNUCKLE BENDER Respiratory Rate 18 04/30/2024 12:19 PM KNUCKLE BENDER Oxygen Saturation 100% 04/30/2024 12:19 PM KNUCKLE BENDER Inhaled Oxygen Concentration - - Weight 97.5 kg (215 lb) 04/30/2024 12:19 PM KNUCKLE BENDER Height 167.6 cm (5' 6 ) 04/30/2024 12:19 PM KNUCKLE BENDER Body Mass Index 34.7 04/30/2024 12:19 PM KNUCKLE BENDER Plan of Treatment Health Maintenance Due Date Last Done Comments Cervical Cancer Screening 1980 Depression Screening 1980 Hepatitis C Screening 1980 Varicella Vaccines (1 of 2 - 13+ 2-dose series) 1993 Hepatitis B Screening 1998 Regular Well Visit/Exam 18-64 1998 Pneumococcal vaccine <65 (2 of 2 - PCV) 05/28/2022 05/28/2021, 11/27/2020, 05/15/2020, Additional history exists Influenza Vaccine (#1) 2023 , 12/13/2019, 08/25/2015 Breast Cancer Screening-Mammogram 06/18/2024 06/19/2023, 06/19/2023 DTaP/Tdap/Td Vaccine (5 - Td or Tdap) 11/27/2030 11/27/2020, 05/15/2020, 04/17/2020, Additional history exists HPV Vaccines Aged Out No longer eligi ble based on patient's age to complete this topic Additional Health Concerns Infection Onset Date Last Indicated 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
--- OUTSIDE RECORDS SUMMARY | 2024-04-30 15:43 | XMS_ITS | Encounter Summary ---
Author Organization [facility] Address [address] [place] [address] Care Team Providers Care Machine Lay Out Worker Name Role Phone Melvin Tineo MD Primary Care Provider [phone] Reason for Visit * Reason Comments Back Pain Patient here for c/o back pain after going to the chiropractor on Friday. Encounter Details Date Type Department Care Team (Late st Contact Info) Description 04/30/2024 12:15 PM POSITIVE PRINTER OPERATOR Office Visit [facility] Care at [address] [id number] Carolina Pratt, NATALIE [address] [place] [address] [address] [place] [address] Acute left-sided low back pain without sciatica (Primary Dx) Social History Tobacco Use Types Packs/Day Years Used Date Smoking Tobacco: Never Smokeless Tobacco: Never AUDIT-C Answer Date Recorded Q1: How often do you have a drink containing alcohol? Never 09/07/2022 Q2: How many drinks containi ng alcohol do you have on a typical day when you are drinking? Patient does not drink Q3: How often do you have si x or more drinks on one occasion? Never 09/07/2022 Comments No Sex and Gender Information Value Date Recorded Sex Assigned at Not on file Legal Sex Female 1:12 PM POSITIVE PRINTER OPERATOR Gender Identity Not on file Sexual Orientation Not on file documented as of this encounter Last Filed Vital Signs Vital Sign Reading Time Taken Comments Blood Pressure 128/78 04/30/2024 12:19 PM POSITIVE PRINTER OPERATOR Pulse 72 04/30/2024 12:19 PM POSITIVE PRINTER OPERATOR Temperature 36.4 C (97.5 F) 04/30/2024 12:19 PM POSITIVE PRINTER OPERATOR Respiratory Rate 18 04/30/2024 12:19 PM POSITIVE PRINTER OPERATOR Oxygen Saturation 100% 04/30/2024 12:19 PM POSITIVE PRINTER OPERATOR Inhaled Oxygen Concentration - - Weight 97.5 kg (215 lb) 04/30/2024 12:19 PM POSITIVE PRINTER OPERATOR Height 167.6 cm (5' 6 ) 04/30/2024 12:19 PM POSITIVE PRINTER OPERATOR Body Mass Index 34.7 04/30/2024 12:19 PM POSITIVE PRINTER OPERATOR documented in this encounter Progress Notes * Carolina Pratt NP - 04/30/2024 12:15 PM CST Images from the original note were not included. Subjective/Objective Patient ID: Ramon Kulkarni is a 43 y.o. female. This patient has verbally consented to recording this visit in order to utilize AI technology in generating this note. Chief Complaint Back Pain (Patient here for c/o back pain after going to the chiropractor on Friday. ) History of Present Illness The patient presents with her today with worsening back pain that began after a chiropractic adjustment on Friday. The chiropractor attempted to adjust the patient's mid to lower back, butnoted that the patient was very, very tight. The patient was initially sore after the adjustment,but the pain has progressively worsened each day. The pain is now so severe that the patient has difficulty moving, bending, and getting out of bed. The patient has been managing the pain with Advil and a heating pad, but the relief is temporary. The pain is located in the mid to lower back on leftside and is tender to touch. The patient denies any numbness or tingling in the legs or genital area, and no new changes in bowel or bladder function. Review of Systems All other systems reviewed and are negative. Physical Exam Physical Exam Vitals and nursing note reviewed. Constitutional: General: She is not in acute distress. Appearance: Normal appearance. She is not ill-appearing. Cardiovascular: Rate and Rhythm: Normal rate. Pulses: Normal pulses. Pulmonary: Effort: Pulmonary effort is normal. Musculoskeletal: Comments: spine exam - decreased active range of motion throughout lumbar and thoracic spine regionsecondary to pain; pain diffuse over the left thoracic area, no spinal tenderness or step-off, deformity, ecchymosis, erythema, warmth, or swelling; negative straight leg raise and bragard bilateral;intact distal motor and sensory throughout. Skin: General: Skin is warm and dry. Capillary Refill: Capillary refill takes less than 2 seconds. Findings: No bruising, erythema or rash. Neurological: Mental Status: She is alert and oriented to person, place, and time. Gait: Gait abnormal. Vitals: 04/30/24 1219 BP: 128/78 Pulse: 72 Resp: 18 Temp: 36.4 ??C (97.5 ??F) SpO2: 100% Weight: 97.5 kg (215 lb) Height: 167.6 cm (5' 6 ) No results found. No past medical history on file. Current Outpatient Medications: FLUoxetine 10 mg capsule, 1 tablet/capsule (10 mg total) daily, Disp: , Rfl: acetaminophen (TYLENOL) 500 mg tablet, Take 1-2 tablets (500-1,000 mg total) by mouth every 6 (six)hours as needed for pain (1 tablet for mild to moderate pain. 2 tablets for severe pain) (Patient not taking: Reported on 04/30/2024), Disp: 30 tablet, Rfl: 0 albuterol HFA (PROVENTIL HFA,VENTOLIN HFA,PROAIR HFA) 90 mcg/actuation inhaler, albuterol sulfate HFA 90 mcg/actuation aerosol inhaler INHALE 2 PUFFS BY MOUTH EVERY 4 HOURS NEEDED FOR DIFFICULT BREATHING (Patient not taking: Reported on 04/30/2024), Disp: , Rfl: amoxicillin 500 mg capsule, TAKE 1 CAPSULE BY MOUTH THREE TIMES DAILY UNTIL GONE (Patient not taking: Reported on 04/30/2024), Disp: , Rfl: aspirin 81 mg enteric coated tablet, aspirin 81 mg tablet,delayed release (Patient not taking: Reported on 04/30/2024), Disp: , Rfl: buPROPion SR (WELLBUTRIN SR) 150 mg 12 hr tablet, Take 1 tablet (150 mg total) by mouth daily (Patient not taking: Reported on 04/30/2024), Disp: , Rfl: cholecalciferol (VITAMIN D-3) 2000 unit capsule, Take by mouth (Patient not taking: Reported on 04/30/2024), Disp: , Rfl: docusate sodium (COLACE) 100 mg capsule, Take 1 capsule (100 mg total) by mouth 2 (two) times a day(Patient not taking: Reported on 04/30/2024), Disp: , Rfl: doxycycline (doxycycline hyclate) 100 mg capsule, , Disp: , Rfl: enoxaparin (LOVENOX) 40 mg/0.4 mL syringe, ADMINISTER 1 SYRINGE UNDER THE SKIN DAILY (Patient not taking: Reported on 04/30/2024), Disp: , Rfl: ergocalciferol (VITAMIN D) 50,000 unit capsule, , Disp: , Rfl: estradioL (ESTRACE) 2 mg tablet, , Disp: , Rfl: ferrous sulfate 325 mg (65 mg of elemental iron) tablet, FeroSul 325 mg (65 mg iron) tablet TAKE 1 TABLET BY MOUTH TWICE DAILY ON THE TO THE OF EACH MONTH (Patient not taking: Reported on 04/30/2024), Disp: , Rfl: HYDROcodone-acetaminophen (NORCO) 5-325 mg per tablet, TAKE 1 OR 2 TABLET BY MOUTH EVERY 6 HOURS ASNEEDED FOR PAIN (Patient not taking: Reported on 04/30/2024), Disp: , Rfl: hydrOXYzine (VISTARIL) 25 mg capsule, every 6 hours (Patient not taking: Reported on 04/30/2024), Disp: , Rfl: ibuprofen (ADVIL,MOTRIN) 600 mg tablet, Take 1 tablet (600 mg total) by mouth every 6 (six) hours as needed for pain (Patient not taking: Reported on 04/30/2024), Disp: 30 tablet, Rfl: 0 meclizine (ANTIVERT) 25 mg tablet, , Disp: , Rfl: multivit 70-zxsv-lsfpmx 6-dha 28 mg iron-1 mg -300 mg capsule, Take 1 tablet by mouth daily (Patient not taking: Reported on 04/30/2024), Disp: , Rfl: polyethylene glycol (MIRALAX) 17 gram/dose powder, Take 17 g by mouth daily (Patient not taking: Reported on 04/30/2024), Disp: , Rfl: traMADoL (ULTRAM) 50 mg tablet, TAKE 1 TABLET BY MOUTH UP TO TWICE DAILY NEEDED (Patient not taking: Reported on 04/30/2024), Disp: , Rfl: Allergies Allergen Reactions Banana Social History Tobacco Use Smoking status: Never Smokeless tobacco: Never Substance and Sexual Activity Drug use: Not on file Sexual activity: Not on file Alcohol Use: Not At Risk (09/07/2022) AUDIT-C Frequency of Alcohol Consumption: Never Average Number of Drinks: Patient does not drink Frequency of Binge Drinking: Never No past surgical history on file. Procedures Assessment/Plan 1. Acute left-sided low back pain without sciatica (Primary) Results Assessment & Plan Acute back pain Acute back pain post-chiropractic adjustment, severe and limiting mobility. Differential includes musculoskeletal strain or trauma from manipulation. - Discuss muscle relaxants and/or corticosteroids for inflammation if needed, and imaging and CC today. Patient states she would rather go to higher level of care for further evaluation, imaging and pain control. - Refer to emergency department for evaluation and pain management. - Discuss potential imaging for musculoskeletal injury. - Patient to go to ED by private car with . states he will take her directly to [place] emergency room. Disposition Treatment plan including expectations, follow up, and return precautions discussed with patient/parent, verbalizes understanding. Medication dosage, use, and potential adverse reactions discussed with patient/parent. Advised to follow up with PCP if symptoms do not resolve as expected or sooner if condition worsens. Signs/symptoms warranting ER evaluation reviewed. Patient and/or guardian was given an opportunity to ask questions, questions answered. Carolina Pratt NP This office note has been partially dictated using Vizify software, and as a result portions of the record may have been created with this software. Occasional wrong-word or '[id number]' substitutions may have occurred due to the inherent limitations of voice recognition software. Read the chartcarefully and recognize, using context, where substitutions have occurred. TIVE PRINTER OPERATOR documented in this encounter Plan of Treatment Not on file documented as of this encounter Visit Diagnoses Diagnosis Acute left-sided low back pain without sciatica- Primary documented in this encounter Historical Medications * This list may reflect changes made after this encounter. 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
--- OUTSIDE RECORDS SUMMARY | 2024-04-30 15:43 | XMS_ITS | CONTINUITY OF CARE DOCUMENT ---
Author Name alta holm Address Unknown Organization [facility] Address [address] [place] [address] [address] [place] [address] Phone [phone] Care Team Providers Care Director Of Donor Relations Name Role Phone Fam Stephens MD Unavailable Fam Stephens MD Unavailable [phone] INSURANCE PROVIDERS Payer name Policy type / Coverage type Ruthy red libertarian ID CIGNA [id number] insurance [employer] [place] [id number]
--- OUTSIDE RECORDS SUMMARY | 2024-04-30 15:43 | XMS_ITS | Referral Summary ---
Author Organization [facility] Address [address] [place] [address] Care Team Providers Care Joint Terminal Attack Controller Name Role Phone Melvin Tineo MD Primary Care Provider Encounters Date Type Department Care Team Description 04/30/2024 12:15 PM FRENCH FOLDER Office Visit [facility] Medical [facility] Con[facility]ient Care at [address] [address] Carolina Pratt NP Acute left-sided low back pain without sciatica (Primary Dx) from Last 3 Months Allergies Active Allergy Reactions Criticality Noted Date [...] THE OF EACH MONTH 0 Active multivit 32-wywb-rjsxad 6-dha 28 mg iron-1 mg -300 mg [...] defect 6 07/11/2022 Retroversion, uterus 08/07/2015 07/11/2022 Immunizations Immunization Administration Dates Next Due Influenza, [...] on file Legal Sex Female 1:12 PM FRENCH FOLDER Gender Identity Not on file Sexual Orientation Not on file Last Filed Vital Signs Vital Sign Reading Time Taken Comments Blood Pressure 128/78 04/30/2024 12:19 PM FRENCH FOLDER Pulse 72 04/30/2024 12:19 PM FRENCH FOLDER Temperature 36.4 C (97.5 F) 04/30/2024 12:19 PM FRENCH FOLDER Respiratory Rate 18 04/30/2024 12:19 PM FRENCH FOLDER Oxygen Saturation 100% 04/30/2024 12:19 PM FRENCH FOLDER Inhaled Oxygen Concentration - - Weight 97.5 kg (215 lb) 04/30/2024 12:19 PM FRENCH FOLDER Height 167.6 cm (5' 6 ) 04/30/2024 12:19 PM FRENCH FOLDER Body Mass Index 34.7 04/30/2024 12:19 PM FRENCH FOLDER Plan of Treatment Not on file Additional Health Concerns Infection Onset Date Last Indicated 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 E.coli urine 09/07/22 09/07/2022 09/07/2022 [facility] Member Subscriber Plan / Payer ( fective 2011-Present) Name:Ramon Kulkarni Relation to Subscriber:Self Name:Ramon Kulkarni Payer ID:[id number] ([facility]) Type:CIGNA HMO/PPO Address: [facility] [address] [place] [address] OPEN ACCESS Member Subscriber Plan / Payer ( fective 2011-Present) Name:Ramon Kulkarni Relation to Subscriber:Self Name:Ramon Kulkarni Payer ID:[id number] ([facility]) Type:CIGNA HMO/PPO Address: [facility] [address] [place] [address] [facility] [employer] OPEN ACCESS Member Subscriber Plan / Payer (Ef fective 2011-Present) Name:Ramon Kulkarni Relation to Subscriber:Self Name:Ramon Kulkarni Payer ID:[id number] ([facility]) Type:[employer]IG[employer] HMO/PPO Address: [facility] [id number] [place] [address] Care Teams Joint Terminal Attack Controller Relationship Specialty Start Date End Date Melvin Tineo MD [address] [place] [address] [address] [place] [address] PCP - General Internal Medicine 07/11/22
--- OUTSIDE RECORDS SUMMARY | 2024-04-30 15:43 | XMS_ITS | Referral Summary ---
Author Organization [facility] Address [address] [place] [address] Care Team Providers Care Seed Specialist Name Role Phone Melvin Tineo MD Primary Care Provider [phone] Source Comments [facility],non-owned Affiliates and Associated Physician Practices is amultiple site organization consisting of ambulatory clinics and hospital sitesin [place], [place], [place] and [place]. This disclosure is being madepursuant to the Care Everywhere program and may not contain all information available regarding this patient. Last updated 17.[facility] Allergies No known active allergies Medications * [...] of Treatment Not on file Care Teams Seed Specialist Relationship Specialty Start Date End Date Melvin Tineo MD [address] [place] [address] [address] [place] [address] PCP - General Internal Medicine 03/24/20
[2024-04-30] MEDS: CYCLOBENZAPRINE HCL 10 MG TABLET PO (16:02)
[2024-04-30] MEDS: KETOROLAC (*BKC) 60 MG/2 ML VIAL IM (16:02)
[2024-04-30] MEDS: predniSONE 20 MG TABLET 40 MG PO (16:02)
[2024-04-30 17:46] VITALS: BP 130/80; PULSE 85; RESP 14; TEMP 37; O2SAT 100
[2024-04-30 18:24] LABS: Add Urine Microscopic? YES; Appearance Urine Cloudy (Clear); Bacteria Urine None Seen /hpf; Bilirubin Urine Negative (Negative); Blood Urine Negative (Negative); Color Urine Yellow (Yellow); Glucose Urine UA Negative (Negative); Ketones Urine Trace mg/dL (Negative); Leukocyte Esterase Ur Negative LEU/UL (Negative); Nitrate Urine Negative (Negative); Non Pathogenic Casts 0-2; Protein Urine Trace mg/dL (Negative); RBC Urine 0-2 /hpf (0-2); Specific Grav Ur 1.029 (1.001-1.035); Squamous Epithelial Cell Urine Moderate /hpf (Few); Urobilinogen Urine 0.2 mg/dL (<2.0); WBC Urine 0-5 /hpf (0-3); pH Urine 6.5 (5.0-9.0)
[2024-04-30] MEDS: ACETAMINOPHEN 500 MG TABLET 1000 MG PO (18:44)
[2024-04-30] MEDS: diazePAM (*CRX) 5 MG TABLET PO (18:44)
[2024-04-30 19:46] VITALS: BP 127/74; PULSE 79; RESP 18; O2SAT 100
== END 2024-04-30 19:47 | disposition home or self-care (01) ==
PROVIDERS: Registered Nurse; Emergency Provider Physician Assistant; PCP Internal Medicine
DX: S39.012A Strain of muscle, fascia and tendon of lower back, initial encounter (principal); X50.9XXA Other and unspecified overexertion or strenuous movements or postures, initial encounter; Y93.89 Activity, other specified
CPT/HCPCS: 81001; 96372; 99283; A9270; J1885; J7512